=== PATIENT | male | born 1945 | race Caucasian/White ===

== ENCOUNTER → 2016-08-26 | Outpatient (CLI) | payer MEDICARE, OTHER ==
--- NOTE | 2016-08-26 19:05 | EKG REPORT ---
SEVERITY:- ABNORMAL ECG - ATRIAL FIBRILLATION, V-RATE 76-116 LEFT ANTERIOR FASCICULAR BLOCK BORDERLINE PROLONGED QT INTERVAL : Confirmed by: Chinyere Davis 26-Aug-2016 19:03:54
== END ==
LOC: OD 09:01
PROVIDERS: ATTEND Internal Medicine Medical Oncology
DX: C90.00 Multiple myeloma not having achieved remission (principal); I49.9 Cardiac arrhythmia, unspecified; A31.2 Disseminated mycobacterium avium-intracellulare complex (DMAC)
CPT/HCPCS: 71020; 93005; 93010

== ENCOUNTER 2016-10-04 14:03 | Inpatient (IN) | payer MEDICARE, OTHER ==
[2016-10-04] MEDS ORDERED: ASPIRIN 81 MG TABLET, CHEWABLE PO ONE (14:15)
[2016-10-04] MEDS ORDERED: DILTIAZEM HCL INJ 25 MG/5 ML VIAL IV ONE (14:49)
[2016-10-04] MEDS ORDERED: DILTIAZEM HCL/D5W 125 ML IV PRN (14:49)
[2016-10-04 15:03] LABS: HEMATOCRIT 47.9 % (37.9-51.0); HEMOGLOBIN 15.7 g/dL (13.5-17.0); HGB HCT DIFFERENCE -0.8; MEAN CORPUSCULAR HEMOGLOBIN 33.2 pg (27.0-33.4); MEAN CORPUSCULAR HGB CONC 32.7 g/dL (32.0-36.0); MEAN CORPUSCULAR VOLUME 101 fl (80-97); RED BLOOD COUNT 4.73 10^6/uL (4.35-5.55); RED CELL DISTRIBUTION WIDTH 18.4 % (11.5-14.0); WHITE BLOOD COUNT 6.5 10^3/uL (4.0-10.5)
--- NOTE | 2016-10-04 15:14 | RADIOLOGY REPORT (SQ) ---
EXAM DESCRIPTION: CHEST SINGLE VIEW COMPLETED DATE/TIME: 10/04/2016 2:36 pm REASON FOR STUDY: dizzy COMPARISON: 08/26/2016 EXAM PARAMETERS: NUMBER OF VIEWS: One view. TECHNIQUE: Single frontal radiographic view of the chest acquired. RADIATION DOSE: NA LIMITATIONS: None. FINDINGS: LUNGS AND PLEURA: No opacities, masses or pneumothorax. No pleural effusion. MEDIASTINUM AND HILAR STRUCTURES: No masses. Contour normal. HEART AND VASCULAR STRUCTURES: Heart normal in size. Normal vasculature. BONES: No acute findings. HARDWARE: Injection port on the left. OTHER: No other significant finding. IMPRESSION: NO ACUTE RADIOGRAPHIC FINDING IN THE CHEST. TECHNICAL DOCUMENTATION: JOB ID: [id number]
--- NOTE | 2016-10-04 15:20 | ER Document Report ---
ED General - General Chief Complaint: Dizziness Stated Complaint: DIZZINESS Time Seen by Provider: 10/04/16 14:15 Mode of Arrival: Ambulatory Information source: Patient Notes: 71-year-old male presents with complaints of shortness of breath palpitations dizziness. Patient found by EMS with heart rate in the 160s intermittently down to the 120s patient notes symptoms started just prior to arrival TRAVEL OUTSIDE OF THE [place] IN LAST 30 DAYS: No - HPI Onset: Just prior to arrival Onset/Duration: Sudden Quality of pain: No pain Severity: Moderate Pain Level: 0 Associated symptoms: Shortness of breath Exacerbated by: Denies Relieved by: Denies Similar symptoms previously: Yes Recently seen / treated by doctor: Yes - Related Data Allergies/Adverse Reactions: No Known Allergies Allergy (Verified 03/04/13 08:41) Past Medical History - Social History Smoking Status: Never Smoker Cigarette use (# per day): No Chew tobacco use (# tins/day): No Smoking Education Provided: No Family History: Reviewed & Not Pertinent - Past Medical History Cardiac Medical History: Reports: Hx Hypertension - meds x yrs Denies: Hx Coronary Artery Disease, Hx Heart Attack Pulmonary Medical History: Denies: Hx Asthma, Hx Bronchitis, Hx COPD, Hx Pneumonia, Hx Tuberculosis Neurological Medical History: Denies: Hx Cerebrovascular Accident, Hx Seizures Endocrine Medical History: Reports: Hx Diabetes Mellitus Type 2 - "boderline" GI Medical History: Denies: Hx Hepatitis, Hx Hiatal Hernia, Hx Ulcer Musculoskeltal Medical History: Reports Hx Arthritis - B/L hands Infectious Medical History: Denies: Hx Hepatitis Past Surgical History: Reports: Hx Orthopedic Surgery - left shouldar repair, left elbow repair. Denies: Hx Open Heart Surgery, Hx Pacemaker - Immunizations Hx Diphtheria, Pertussis, Tetanus Vaccination: - "unknown" Hx Pneumococcal Vaccination: 05/12/09 Review of Systems - Review of Systems Notes: PHYSICAL EXAMINATION: GENERAL: Well-appearing, well-nourished and in no acute distress. HEAD: Atraumatic, normocephalic. EYES: Pupils equal round and reactive to light, extraocular movements intact, sclera anicteric, conjunctiva are normal. ENT: Nares patent, oropharynx clear without exudates. Moist mucous membranes. NECK: Normal range of motion, supple without lymphadenopathy LUNGS: Breath sounds clear to auscultation bilaterally and equal. No wheezes rales or rhonchi. HEART: irregular rate and rhythm without murmurs ABDOMEN: Soft, nontender, nondistended abdomen. No guarding, no rebound. No masses appreciated. Musculoskeletal: Normal range of motion, no pitting or edema. No cyanosis. NEUROLOGICAL: Cranial nerves grossly intact. Normal speech, normal gait. Normal sensory, motor exams PSYCH: Normal mood, normal affect. SKIN: Warm, Dry, normal turgor, no rashes or lesions noted. Physical Exam - Vital signs Vitals: Pulse Resp BP Pulse Ox 140 H 33 H 163/116 H 98 10/04/16 14:20 10/04/16 14:20 10/04/16 14:20 10/04/16 14:20 Course - Re-evaluation Re-evalutation: 10/04/16 15:20 pt immediately started on cardizem bolus and drip 10/04/16 15:57 Heart rate has improved significantly, I will admit the patient to his primary care physician and is otherwise stable - Vital Signs Vital signs: Temp Pulse Resp BP Pulse Ox 140 H 33 H 163/116 H 97 10/04/16 14:20 10/04/16 14:20 10/04/16 14:20 10/04/16 14:43 - Laboratory Result Diagrams: 10/04/16 14:36 10/04/16 14:36 Laboratory results interpreted by me: 10/04/16 10/04/16 14:36 14:36 MCV 101 H RDW 18.4 H Seg Neuts % (Manual) 79 H Lymphocytes % (Manual) 6 L Basophils % (Manual) 3 H Glucose 172 H Total Protein 5.4 L Critical Care Note - Critical Care Note Total time excluding time spent on procedures (mins): 33 Comments: minutes of critical care time spent in direct contact evaluating and reevaluating the patient, treating symptoms, reviewing labs and studies and speaking with family and consultants excluding any procedures Discharge - Discharge Clinical Impression: Atrial fibrillation with rapid ventricular response, Shortness of breath Condition: Stable Disposition: ADMITTED INPATIENT Admitting Provider: [facility] Unit Admitted: [facility]
[2016-10-04 15:28] LABS: ALANINE AMINOTRANSFERASE 45 U/L (21-72); ALBUMIN 3.8 g/dL (3.5-5.0); ALKALINE PHOSPHATASE 80 U/L (38-126); ANION GAP 12 (5-19); ASPARTATE AMINO TRANSFERASE 24 U/L (17-59); BILIRUBIN,DIRECT 0.4 mg/dL (0.0-0.4); BILIRUBIN,TOTAL 0.8 mg/dL (0.2-1.3); BLOOD UREA NITROGEN 18 mg/dL (7-20); CALCIUM 9.6 mg/dL (8.4-10.2); CARBON DIOXIDE 26 mmol/L (22-30); CHLORIDE 106 mmol/L (98-107); CREATINE KINASE 55 U/L (55-170); CREATININE RESULT 0.72 mg/dL (0.52-1.25); GLUCOSE 172 mg/dL (75-110); POTASSIUM 4.6 mmol/L (3.6-5.0); SODIUM 144.2 mmol/L (137-145); TOTAL PROTEIN 5.4 g/dL (6.3-8.2)
[2016-10-04 15:32] LABS: BAND NEUTROPHILS % (MANUAL) 3 % (3-5); BASOPHILS % (MANUAL) 3 % (0-2); EOSINOPHILS % (MANUAL) 3 % (0-6); LYMPHOCYTES % (MANUAL) 6 % (13-45); NUCLEATED RED BLOOD CELLS 2 /100 WBC (0); TOTAL CELLS COUNTED 100
[2016-10-04 15:37] LABS: ACANTHOCYTES 1+; ANISOCYTOSIS 2+; OVALOCYTES 1+; POIKILOCYTOSIS 2+; POLYCHROMASIA 1+; SCHISTOCYTES SLIGHT; TEAR DROP CELLS 1+
[2016-10-04 15:38] LABS: HOWELL-JOLLY BODIES PRESENT; PLATELET CLUMPS PRESENT
[2016-10-04 15:42] LABS: CREATINE KINASE MB 3.56 ng/mL (<4.55)
[2016-10-04 15:43] LABS: TROPONIN I < 0.012 ng/mL
[2016-10-04 18:04] LABS: PROTHROMBIN TIME 14.9 SEC (11.4-15.4)
[2016-10-04] MEDS: APIXABAN 5 MG TABLET PO SCH (20:06)
[2016-10-04] MEDS ORDERED: LISINOPRIL 10 MG TABLET PO ONE (20:30)
--- NOTE | 2016-10-04 20:41 | EKG REPORT ---
SEVERITY:- ABNORMAL ECG - ATRIAL FIBRILLATION, V-RATE 78-169 PROBABLE LEFT VENTRICULAR HYPERTROPHY PROBABLE INFERIOR INFARCT, AGE INDETERMINATE BORDERLINE PROLONGED QT INTERVAL : Confirmed by: Geovanny Segovia MD 04-Oct-2016 20:40:44
[2016-10-04] MEDS: FAMOTIDINE 20 MG TABLET PO SCH (22:52)
[2016-10-04] MEDS ORDERED: TAMSULOSIN HCL 0.4 MG CAP.SR.24H PO ONE (23:00)
[2016-10-05 00:56] LABS: APPEARANCE,URINE SLIGHTLY-CLOUDY; BILIRUBIN,URINE NEGATIVE (NEGATIVE); GLUCOSE, URINE >=500 mg/dL (NEGATIVE); KETONES,URINE TRACE mg/dL (NEGATIVE); LEUKOCYTE ESTERASE,URINE NEGATIVE (NEGATIVE); NITRITE,URINE NEGATIVE (NEGATIVE); PROTEIN,URINE 100 mg/dL (NEGATIVE); URINE SPECIFIC GRAVITY 1.026; UROBILINOGEN,URINE NEGATIVE mg/dL (<2.0)
--- NOTE | 2016-10-05 07:02 | PDOC H&P ---
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 In recent months he has fallen at least weekly. Dr Arriaga said it might be revlimid related. Yesterday he fell against L ribs. Last time it was R ribs. He has had paroxysmal afib since 2013 [address] on lov[address] from Dr Arriaga for L dvt. Although he did not feel palpitatons yesterday, rate was 150 in ER. Although he has not had hesitancy before, he had 700ml in bladder before ballard last night. Past Medical History Cardiac Medical History: Reports: Atrial Fibrillation, DVT, Hyperlipidema, Hypertension - meds x yrs Denies: Coronary Artery Disease, Myocardial Infarction Pulmonary Medical History: Reports: Other - [facility] [place] 2013 3Rx Denies: Asthma, Bronchitis, Chronic Obstructive Pulmonary Disease (COPD), Pneumonia, Tuberculosis Neurological Medical History: Reports: Other - neuropathy diabetic & chemo Denies: Seizures Endocrine Medical History: Reports: Diabetes Mellitus Type 2 - "boderline" Renal/ Medical History: Reports: None Malignancy Medical History: Reports: Other - 2011 myeloma GI Medical History: Denies: Hepatitis, Hiatal Hernia Musculoskeltal Medical History: Reports: Arthritis - B/L hands Psychiatric Medical History: Denies: Depression Traumatic Medical History: Reports: None Hematology: Denies: Anemia - has polycythemia vera, Sickle Cell Disease Infectious Medical History: Reports: None Past Surgical History Past Surgical History: Reports: Orthopedic Surgery - left acromion orif, left elbow repair, Other - 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 Moran Lives with: Alone Smoking Status: Never Smoker Frequency of Alcohol Use: None Hx Recreational Drug Use: No Hx Prescription Drug Abuse: No - Advance Directive Resuscitation Status: Full Code Family History Family History: CAD, Malignancy Parental Family History Reviewed: Yes Children Family History Reviewed: Yes Sibling(s) Family History Reviewed.: Yes Medication/Allergy Home Medications: Duloxetine HCl 30 mg PO DAILY 10/04/16 Enoxaparin Sodium [Lovenox Inj 100 mg/1 ml Disp.syrin] 0.9 ml PO BID 10/04/16 Esomeprazole Mag Trihydrate [Nexium] 40 mg PO DAILY 10/04/16 Fenofibrate 160 mg PO DAILY 10/04/16 Fluticasone/Salmeterol [Advair 100-50 Diskus 14 Dose/Diskus] 1 puff IH BID 10/04 Gabapentin [Neurontin 300 mg Capsule] 300 mg PO Q8 10/04/16 Insulin Aspart [Novolog Flexpen] 10 units SQ MEALS 10/04/16 Insulin Glargine,Hum.rec.anlog [Lantus Solostar] 40 units SQ QHS 10/04/16 Metformin HCl [Glucophage XR 500 mg Tablet] 2,000 mg PO WSUPPER 10/04/16 Allergies/Adverse Reactions: No Known Allergies Allergy (Verified 03/04/13 08:41) Review of Systems Constitutional: ABSENT: fever(s), headache(s), weight loss Nose, Mouth, and Throat: ABSENT: sore throat Cardiovascular: PRESENT: chest pain - L pleuritic. ABSENT: dyspnea on exertion , orthropnea, palpitations Respiratory: ABSENT: cough Gastrointestinal: PRESENT: constipation. ABSENT: abdominal pain, diarrhea, hematochezia, melena, vomiting Genitourinary: ABSENT: dysuria, hematuria Integumentary: PRESENT: wounds - abrasion forehead Neurological: PRESENT: numbness - extremities Physical Exam Vital Signs: Temp Pulse Resp BP Pulse Ox 97.8 F 74 18 155/92 H 95 10/05/16 03:17 10/05/16 05:01 10/05/16 05:01 10/05/16 05:01 10/05/16 05:01 Intake & Output 10/03/16 10/04/16 10/05/16 07:59 07:59 07:59 Intake Total 500 Output Total 650 Balance -150 Weight 199 lb 1.239 oz General appearance: PRESENT: no acute distress Eye exam: PRESENT: EOMI, PERRLA Mouth exam: PRESENT: moist Neck exam: ABSENT: lymphadenopathy, tenderness, thyromegaly, tracheal deviation Respiratory exam: PRESENT: clear to auscultation esme Cardiovascular exam: ABSENT: diastolic murmur, irregular rhythm, systolic murmur GI/Abdominal exam: ABSENT: mass, organolmegaly, tenderness Extremities exam: ABSENT: pedal edema Neurological exam: PRESENT: oriented to situation, CN II-XII grossly intact. ABSENT: reflexes normal - no dtr, motor sensory deficit - touch intact but decreased. 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 Psychiatric exam: PRESENT: appropriate affect Skin exam: PRESENT: abrasion - forehead Results Laboratory Results: Abnormal - 24 hr 10/04/16 10/04/16 10/04/16 14:36 14:36 23:55 MCV 101 H RDW 18.4 H Seg Neuts % (Manual) 79 H Lymphocytes % (Manual) 6 L Basophils % (Manual) 3 H Glucose 172 H POC Glucose Total Protein 5.4 L Urine Protein 100 H Urine Glucose (UA) >=500 H Urine Ketones TRACE H Urine Ascorbic Acid 40 H 10/05/16 05:40 MCV RDW Seg Neuts % (Manual) Lymphocytes % (Manual) Basophils % (Manual) Glucose POC Glucose 159 H Total Protein Urine Protein Urine Glucose (UA) Urine Ketones Urine Ascorbic Acid Impressions: Chest X-Ray 10/04/16 14:16 IMPRESSION: NO ACUTE RADIOGRAPHIC FINDING IN THE CHEST. Assessment & Plan - Diagnosis (1) Atrial fibrillation with RVR Is this a current diagnosis for this admission?: YesPlan: diltiazem drip worked. Switching to po. Switched lovenox to eliquis. (2) BPH with urinary obstruction Is this a current diagnosis for this admission?: YesPlan: tamsulosin then trial of voiding (3) Ataxia Is this a current diagnosis for this admission?: YesPlan: has walker. Consult Dr Arriaga about need for revlimid. - Time Time Spent: 30 to 50 Minutes Medications reviewed and adjusted accordingly: Yes Anticipated discharge: Home Within: within 72 hours - Inpatient Certification Medical Necessity: Failure to Improve With Outpatient Therapy, Significant Comorbidiites Make Outpatient Treatment Too Risky, Need Close Monitoring Due to Risk of Patient Decompensation, Need For Continuous Telemetry Monitoring, Risk of Diagnosis Which Will Require Inpatient Eval/Care/Monitoring - need rate control
[2016-10-05] MEDS ORDERED: DEXTROSE 40% GEL 15 GM TUBE PO PRN ×4 (07:04)
[2016-10-05] MEDS ORDERED: GLUCAGON,HUMAN RECOMB 1 MG INJ IM PRN ×2 (07:04)
[2016-10-05] MEDS ORDERED: DEXTROSE 50%-WATER 25 GM/50 ML DISP.SYRIN IV PRN ×4 (07:04)
[2016-10-05] MEDS ORDERED: (PENDING PHARMACY ID) (Insulin Aspart [Novolog Flexpen] 10 UNITS) SQ SCH (08:00)
[2016-10-05] MEDS: INSULIN LISPRO 100 UNIT/ML 3 ML VIAL SUBCUT SCH ×3 (08:16→17:46)
[2016-10-05] MEDS: GABAPENTIN 300 MG CAPSULE PO SCH ×3 (08:16→21:34)
[2016-10-05] MEDS: TAMSULOSIN HCL 0.4 MG CAP.SR.24H PO SCH (09:23)
[2016-10-05] MEDS: DILTIAZEM HCL 240 MG CAPSULE.CR PO SCH (09:23)
[2016-10-05] MEDS: DULOXETINE HCL 30 MG CAPSULE.DR PO SCH (09:24)
[2016-10-05] MEDS: FAMOTIDINE 20 MG TABLET PO SCH ×2 (09:24→21:34)
[2016-10-05] MEDS: APIXABAN 5 MG TABLET PO SCH ×2 (09:24→17:42)
[2016-10-05] MEDS: LISINOPRIL 10 MG TABLET PO SCH (09:24)
[2016-10-05] MEDS ORDERED: (PENDING PHARMACY ID) (Fenofibrate [Fenofibrate] 160 MG) PO SCH (10:00)
[2016-10-05] MEDS ORDERED: (PENDING PHARMACY ID) (Esomeprazole Mag Trihydrate [Nexium] 40 MG) PO SCH (10:00)
[2016-10-05] MEDS: FLUTICASONE/SALMETEROL DISKUS 100-50 MCG/DOSE IH SCH ×2 (10:38→17:41)
[2016-10-05] MEDS: LANSOPRAZOLE 30 MG TAB.RAP.DR PO SCH (10:38)
[2016-10-05] MEDS: FENOFIBRATE NANOCRYSTALLIZED 145 MG TABLET PO SCH (10:38)
[2016-10-05] MEDS ORDERED: METFORMIN HCL 2000 MG PO SCH (17:00)
--- NOTE | 2016-10-05 17:06 | EKG REPORT ---
SEVERITY:- ABNORMAL ECG - ATRIAL FIBRILLATION, V-RATE 61-101 LEFT AXIS DEVIATION PROBABLE LEFT VENTRICULAR HYPERTROPHY BORDERLINE PROLONGED QT INTERVAL : Confirmed by: Geovanny Segovia MD 05-Oct-2016 17:06:04
[2016-10-05] MEDS: METFORMIN HCL 500 MG TABLET PO SCH (17:41)
[2016-10-05] MEDS ORDERED: ACETAMINOPHEN 325 MG TABLET PO PRN (21:32)
[2016-10-05] MEDS ORDERED: INSULIN GLARGINE,HUM.REC.ANLOG 300 UNIT/3 ML INSULN.PEN SUBCUT SCH (22:00)
[2016-10-05] MEDS: INSULIN GLARGINE,HUM.REC.ANLOG 300 UNIT/3 ML INSULN.PEN SUBCUT SCH (23:20)
--- NOTE | 2016-10-05 23:25 | RADIOLOGY REPORT (SQ) ---
EXAM DESCRIPTION: CHEST SINGLE VIEW COMPLETED DATE/TIME: 10/05/2016 11:12 pm REASON FOR STUDY: sob COMPARISON: 10/04/2016 EXAM PARAMETERS: NUMBER OF VIEWS: One view. TECHNIQUE: Single frontal radiographic view of the chest acquired. RADIATION DOSE: NA LIMITATIONS: None. FINDINGS: LUNGS AND PLEURA: No opacities, masses or pneumothorax. No pleural effusion. MEDIASTINUM AND HILAR STRUCTURES: No masses. Contour normal. HEART AND VASCULAR STRUCTURES: The configuration of the heart and mediastinal structures is unchanged . BONES: No acute findings. HARDWARE: Central line is seen with its tip the level of the superior vena cava. OTHER: No other significant finding. IMPRESSION: No significant interval change. No acute findings. Other findings as noted above TECHNICAL DOCUMENTATION: JOB ID: [id number]
[2016-10-06] MEDS: GABAPENTIN 300 MG CAPSULE PO SCH ×3 (06:15→21:24)
--- NOTE | 2016-10-06 07:23 | PDOC PROGRESS REPORT ---
Subjective Progress Note for:: 10/06/16 Subjective:: has not noted nocturnal confusion at home but was confused last night. Required ballard for retention. Less L pleuritic pain. No chest pressure. Needed torey & diltiazem for bp. Physical Exam Vital Signs: Temp Pulse Resp BP Pulse Ox 97.8 F 89 20 144/90 H 97 10/06/16 03:50 10/06/16 06:48 10/06/16 03:50 10/06/16 03:50 10/06/16 03:50 Intake & Output 10/04/16 10/05/16 10/06/16 07:59 07:59 07:59 Intake Total 700 1424 Output Total 850 1350 Balance -150 74 Weight 199 lb 1.239 oz 195 lb 8.8 oz General appearance: PRESENT: no acute distress Respiratory exam: PRESENT: clear to auscultation esme Cardiovascular exam: PRESENT: irregular rhythm. ABSENT: diastolic murmur, systolic murmur GI/Abdominal exam: ABSENT: mass, organolmegaly, tenderness Extremities exam: ABSENT: pedal edema Neurological exam: PRESENT: oriented to situation Psychiatric exam: PRESENT: appropriate affect Focused psych exam: PRESENT: other - oriented to time except day of week. Knows last 2 presidents. 3 serial 7s. Interprets a proverb. Recall 1 of 3 objects in 3 min. Results Laboratory Results: 10/04/16 10/05/16 10/05/16 17:40 06:03 15:24 Troponin I 0.047 0.130 0.059 Impressions: Chest X-Ray 10/05/16 00:00 IMPRESSION: No significant interval change. No acute findings. Other findings as noted above Assessment & Plan - Diagnosis (1) Atrial fibrillation with RVR Is this a current diagnosis for this admission?: YesPlan: still afib but rate controlled. Continue eliquis & diltiazem. Troponin 0.13 from tachycardia. (2) BPH with urinary obstruction Is this a current diagnosis for this admission?: YesPlan: on tamsulosin. Pull ballard. (3) Ataxia Is this a current diagnosis for this admission?: YesPlan: Has too much junk to take care of for rest home. (5) Alzheimer's dementia, late onset Qualifiers: Dementia behavioral disturbance: without behavioral disturbance Qualified Code(s): G30.1 - Alzheimer's disease with late onset; F02.80 - Dementia in other diseases classified elsewhere without behavioral disturbance Is this a current diagnosis for this admission?: YesPlan: looses things. Recall 1of3 objects in 3min. Check tsh,b12.
[2016-10-06] MEDS: METFORMIN HCL 500 MG TABLET PO SCH ×2 (08:00→18:22)
[2016-10-06] MEDS: INSULIN LISPRO 100 UNIT/ML 3 ML VIAL SUBCUT SCH ×3 (08:01→18:25)
[2016-10-06] MEDS: FAMOTIDINE 20 MG TABLET PO SCH ×2 (10:39→21:24)
[2016-10-06] MEDS: DILTIAZEM HCL 240 MG CAPSULE.CR PO SCH (10:39)
[2016-10-06] MEDS: FLUTICASONE/SALMETEROL DISKUS 100-50 MCG/DOSE IH SCH ×2 (10:40→18:23)
[2016-10-06] MEDS: TAMSULOSIN HCL 0.4 MG CAP.SR.24H PO SCH (10:40)
[2016-10-06] MEDS: LISINOPRIL 10 MG TABLET PO SCH (10:40)
[2016-10-06] MEDS: FENOFIBRATE NANOCRYSTALLIZED 145 MG TABLET PO SCH (10:41)
[2016-10-06] MEDS: DULOXETINE HCL 30 MG CAPSULE.DR PO SCH (10:41)
[2016-10-06] MEDS: LANSOPRAZOLE 30 MG TAB.RAP.DR PO SCH (10:41)
[2016-10-06] MEDS: LUBIPROSTONE 24 MCG CAPSULE PO SCH ×2 (10:41→18:23)
[2016-10-06] MEDS: APIXABAN 5 MG TABLET PO SCH ×2 (10:42→18:23)
[2016-10-06] MEDS ORDERED: ONDANSETRON 4 MG TAB.RAPDIS PO PRN (13:56)
[2016-10-06] MEDS ORDERED: DILTIAZEM HCL 240 MG CAPSULE.CR PO ONE (15:00)
[2016-10-06] MEDS: INSULIN GLARGINE,HUM.REC.ANLOG 300 UNIT/3 ML INSULN.PEN SUBCUT SCH (23:54)
[2016-10-07] MEDS: GABAPENTIN 300 MG CAPSULE PO SCH ×3 (06:00→21:23)
--- NOTE | 2016-10-07 08:50 | PDOC PROGRESS REPORT ---
Subjective Progress Note for:: 10/07/16 Subjective:: threw up diltiazem capsule yesterday. Rate went up. Repeated diltiazem. Constipation. Physical Exam Vital Signs: Temp Pulse Resp BP Pulse Ox 97.7 F 77 24 H 145/70 H 95 10/07/16 04:34 10/07/16 07:00 10/07/16 04:34 10/07/16 04:34 10/07/16 04:34 Intake & Output 10/06/16 10/07/16 10/08/16 07:59 07:59 07:59 Intake Total 1424 913 Output Total 1700 850 Balance -276 63 Weight 195 lb 8.8 oz 193 lb 12.581 oz General appearance: PRESENT: no acute distress Respiratory exam: PRESENT: clear to auscultation esme Cardiovascular exam: PRESENT: irregular rhythm. ABSENT: diastolic murmur, systolic murmur GI/Abdominal exam: ABSENT: mass, organolmegaly, tenderness Extremities exam: ABSENT: pedal edema Neurological exam: PRESENT: oriented to situation Psychiatric exam: PRESENT: appropriate affect Results Laboratory Results: 10/06/16 10/06/16 08:20 08:20 Vitamin B12 > 1000.0 H TSH 3.43 10/04/16 10/05/16 10/05/16 17:40 06:03 15:24 Troponin I 0.047 0.130 0.059 10/06/16 08:20 Troponin I 0.052 Impressions: Chest X-Ray 10/05/16 00:00 IMPRESSION: No significant interval change. No acute findings. Other findings as noted above Assessment & Plan - Diagnosis (1) Atrial fibrillation with RVR Is this a current diagnosis for this admission?: YesPlan: really needs 240mg diltiazem daily. (2) BPH with urinary obstruction Is this a current diagnosis for this admission?: YesPlan: voiding with out ballard on tamsulosin (3) Ataxia Is this a current diagnosis for this admission?: Yes (4) Alzheimer's dementia with behavioral disturbance Qualifiers: Alzheimer's disease onset: late-onset Qualified Code(s): G30.1 - Alzheimer's disease with late onset; F02.81 - Dementia in other diseases classified elsewhere with behavioral disturbance Is this a current diagnosis for this admission?: YesPlan: tsh,b12 ok. Start donepezil (5) Alzheimer's dementia, late onset Qualifiers: Dementia behavioral disturbance: without behavioral disturbance Qualified Code(s): G30.1 - Alzheimer's disease with late onset; F02.81 - Dementia in other diseases classified elsewhere with behavioral disturbance Is this a current diagnosis for this admission?: Yes (6) Constipation by delayed colonic transit Is this a current diagnosis for this admission?: YesPlan: magdy
[2016-10-07] MEDS: FLUTICASONE/SALMETEROL DISKUS 100-50 MCG/DOSE IH SCH ×2 (09:22→21:22)
[2016-10-07] MEDS: METFORMIN HCL 500 MG TABLET PO SCH ×2 (09:22→16:54)
[2016-10-07] MEDS: LANSOPRAZOLE 30 MG TAB.RAP.DR PO SCH (09:23)
[2016-10-07] MEDS: FAMOTIDINE 20 MG TABLET PO SCH ×2 (09:23→21:23)
[2016-10-07] MEDS: LISINOPRIL 10 MG TABLET PO SCH (09:23)
[2016-10-07] MEDS: DONEPEZIL HCL 5 MG TABLET PO SCH (09:23)
[2016-10-07] MEDS: TAMSULOSIN HCL 0.4 MG CAP.SR.24H PO SCH (09:24)
[2016-10-07] MEDS: DILTIAZEM HCL 240 MG CAPSULE.CR PO SCH (09:24)
[2016-10-07] MEDS: DULOXETINE HCL 30 MG CAPSULE.DR PO SCH (09:24)
[2016-10-07] MEDS: FENOFIBRATE NANOCRYSTALLIZED 145 MG TABLET PO SCH (09:24)
[2016-10-07] MEDS: LUBIPROSTONE 24 MCG CAPSULE PO SCH ×2 (09:24→18:23)
[2016-10-07] MEDS: APIXABAN 5 MG TABLET PO SCH ×2 (09:25→18:23)
[2016-10-07] MEDS: INSULIN LISPRO 100 UNIT/ML 3 ML VIAL SUBCUT SCH ×3 (09:30→16:54)
[2016-10-07] MEDS: INSULIN GLARGINE,HUM.REC.ANLOG 300 UNIT/3 ML INSULN.PEN SUBCUT SCH (21:21)
[2016-10-07] MEDS: ACETAMINOPHEN 325 MG TABLET PO PRN (21:23)
[2016-10-08] MEDS: GABAPENTIN 300 MG CAPSULE PO SCH (05:13)
--- NOTE | 2016-10-08 06:55 | PDOC PROGRESS REPORT ---
Subjective Progress Note for:: 10/08/16 Subjective:: fell coming out of bathroom. Hit head and L shoulder. Now willing to consider rehab. Feet dont burn Physical Exam Vital Signs: Temp Pulse Resp BP Pulse Ox 97.4 F 86 28 H 162/84 H 99 10/08/16 03:59 10/08/16 03:59 10/08/16 03:59 10/08/16 03:59 10/08/16 03:59 Intake & Output 10/06/16 10/07/16 10/08/16 07:59 07:59 07:59 Intake Total 4498 669 7753 Output Total 1700 846 775 Balance -276 63 311 Weight 195 lb 8.8 oz 193 lb 12.581 oz General appearance: PRESENT: no acute distress Respiratory exam: PRESENT: clear to auscultation esme Cardiovascular exam: PRESENT: irregular rhythm. ABSENT: diastolic murmur, systolic murmur GI/Abdominal exam: ABSENT: mass, organolmegaly, tenderness Extremities exam: ABSENT: pedal edema Musculoskeletal exam: PRESENT: tenderness - L shoulder [id number] Neurological exam: PRESENT: oriented to time, abnormal gait, ataxia, CN II-XII grossly intact - OK:cn2-12, fingerToNose. Rhomberg+. Falls back. Grip5. Touch intact. PERRLA. 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 No acute findings. Other findings as noted above Assessment & Plan - Diagnosis (1) Ataxia Is this a current diagnosis for this admission?: YesPlan: ct head to rule out subdural. Rehab. Stop duloxetine & gabapentin. PT (2) Atrial fibrillation with RVR Is this a current diagnosis for this admission?: YesPlan: No longer a candidate for anticoagulation. Subdural risk outweighs embolic risk. Stop eliquis. (3) Alzheimer's dementia with behavioral disturbance Qualifiers: Alzheimer's disease onset: late-onset Qualified Code(s): G30.1 - Alzheimer's disease with late onset; F02.81 - Dementia in other diseases classified elsewhere with behavioral disturbance Is this a current diagnosis for this admission?: Yes (4) Constipation by delayed colonic transit Is this a current diagnosis for this admission?: YesPlan: 2 stools after enema & amitiza. (5) BPH with urinary obstruction Is this a current diagnosis for this admission?: Yes
--- NOTE | 2016-10-08 08:27 | RADIOLOGY REPORT (SQ) ---
EXAM DESCRIPTION: CT HEAD WITHOUT COMPLETED DATE/TIME: 10/08/2016 8:11 am REASON FOR STUDY: fell hit head again COMPARISON: CT brain 06/04/2012 TECHNIQUE: Axial images acquired through the brain without intravenous contrast. Images reviewed wi th bone, brain and subdural windows. Images stored on PACS. All CT scanners at this facility use dose modulation, iterative reconstruction, and/or weight based d osing when appropriate to reduce radiation dose to as low as reasonably achievable (ALARA). [facility]: Dose Right [facility]: CareDose [facility]: Dose Right [facility]: Teradose 4D [facility]: Hiddenbed RADIATION DOSE: 48.95 mGy. LIMITATIONS: Motion artifact FINDINGS: Study limited by patient motion artifact. On images without motion, there is no gross CT evidence of large territory acute ischemic change, acute intracranial hemorrhage, mass effect, or mid line shift. White matter disease is present, chronic. IMPRESSION: Limited negative study. Motion artifact. TECHNICAL DOCUMENTATION: JOB ID: [id number] Quality ID # [id number]: Final reports with documentation of one or more dose reduction techniques (e.g., Au tomated exposure control, adjustment of the mA and/or kV according to patient size, use of iterative reconstruction technique) 2010 [employer]- All Rights Reserved
--- NOTE | 2016-10-08 09:18 | RADIOLOGY REPORT (SQ) ---
EXAM DESCRIPTION: SHOULDER LEFT 2 OR MORE VIEWS COMPLETED DATE/TIME: 10/08/2016 8:21 am REASON FOR STUDY: fell tender abduction COMPARISON: None. NUMBER OF VIEWS: Three views. TECHNIQUE: Internal rotation, external rotation, and Y view images acquired of the left shoulder. LIMITATIONS: None. FINDINGS: MINERALIZATION: Normal. BONES: No acute fracture or dislocation. No worrisome bone lesions. JOINTS: No dislocation. VISUALIZED LUNGS AND RIBS: No pneumothorax. Minimal irregularity of the lateral left 5th rib. SOFT TISSUES: No radiopaque foreign body. OTHER: No other significant finding. IMPRESSION: MINIMALLY DISPLACED FRACTURE OF THE LATERAL LEFT 5TH RIB, AGE INDETERMINATE BUT PROBABLY RECENT. NO ACUTE TRAUMATIC FINDINGS IN THE SHOULDER. TECHNICAL DOCUMENTATION: JOB ID: [id number] [employer]- All Rights Reserved
[2016-10-08] MEDS: LISINOPRIL 10 MG TABLET PO SCH (09:19)
[2016-10-08] MEDS: DILTIAZEM HCL 240 MG CAPSULE.CR PO SCH (09:19)
[2016-10-08] MEDS: DONEPEZIL HCL 5 MG TABLET PO SCH (09:19)
[2016-10-08] MEDS: ACETAMINOPHEN 325 MG TABLET PO PRN ×2 (09:20→14:52)
[2016-10-08] MEDS: METFORMIN HCL 500 MG TABLET PO SCH ×2 (09:20→18:52)
[2016-10-08] MEDS: LANSOPRAZOLE 30 MG TAB.RAP.DR PO SCH (09:20)
[2016-10-08] MEDS: FENOFIBRATE NANOCRYSTALLIZED 145 MG TABLET PO SCH (09:20)
[2016-10-08] MEDS: TAMSULOSIN HCL 0.4 MG CAP.SR.24H PO SCH (09:20)
[2016-10-08] MEDS: FLUTICASONE/SALMETEROL DISKUS 100-50 MCG/DOSE IH SCH ×2 (09:22→21:07)
[2016-10-08] MEDS: LUBIPROSTONE 24 MCG CAPSULE PO SCH ×2 (09:22→18:52)
[2016-10-08] MEDS: INSULIN LISPRO 100 UNIT/ML 3 ML VIAL SUBCUT SCH ×3 (09:23→18:52)
[2016-10-08] MEDS: INSULIN GLARGINE,HUM.REC.ANLOG 300 UNIT/3 ML INSULN.PEN SUBCUT SCH (21:08)
--- NOTE | 2016-10-09 06:48 | PDOC PROGRESS REPORT ---
Subjective Progress Note for:: 10/09/16 Subjective:: using walker Physical Exam Vital Signs: Temp Pulse Resp BP Pulse Ox 98.0 F 109 H 28 H 142/85 H 91 L 10/08/16 23:54 10/09/16 02:00 10/08/16 23:54 10/08/16 23:54 10/08/16 23:54 Intake & Output 10/07/16 10/08/16 10/09/16 07:59 07:59 07:59 Intake Total 913 1611 675 Output Total 850 775 Balance 63 836 675 Weight 193 lb 12.581 oz 194 lb 0.108 oz General appearance: PRESENT: no acute distress Respiratory exam: PRESENT: clear to auscultation esme Cardiovascular exam: ABSENT: diastolic murmur, irregular rhythm, systolic murmur GI/Abdominal exam: ABSENT: mass, organolmegaly, tenderness Extremities exam: ABSENT: pedal edema Neurological exam: PRESENT: oriented to situation Psychiatric exam: PRESENT: appropriate affect Results Laboratory Results: 10/04/16 10/05/16 10/05/16 17:40 06:03 15:24 Troponin I 0.047 0.130 0.059 10/06/16 08:20 Troponin I 0.052 Impressions: Chest X-Ray 10/05/16 00:00 IMPRESSION: No significant interval change. No acute findings. Other findings as noted above Head CT 10/08/16 00:00 IMPRESSION: Limited negative study. Motion artifact. Shoulder X-Ray 10/08/16 00:00 IMPRESSION: MINIMALLY DISPLACED FRACTURE OF THE LATERAL LEFT 5TH RIB, AGE INDETERMINATE BUT PROBABLY RECENT. NO ACUTE TRAUMATIC FINDINGS IN THE SHOULDER. Assessment & Plan - Diagnosis (1) Ataxia Is this a current diagnosis for this admission?: YesPlan: Normal heel to acosta. Rehab PT. (2) Atrial fibrillation with RVR Is this a current diagnosis for this admission?: YesPlan: p<110 (3) Alzheimer's dementia with behavioral disturbance Qualifiers: Alzheimer's disease onset: late-onset Qualified Code(s): G30.1 - Alzheimer's disease with late onset; F02.81 - Dementia in other diseases classified elsewhere with behavioral disturbance Is this a current diagnosis for this admission?: YesPlan: continue donepezil 5mg (4) Constipation by delayed colonic transit Is this a current diagnosis for this admission?: Yes (5) BPH with urinary obstruction Is this a current diagnosis for this admission?: Yes - Plan Summary Plan Summary: SNF at [place] pending.
[2016-10-09] MEDS: ACETAMINOPHEN 325 MG TABLET PO PRN ×3 (07:19→22:08)
[2016-10-09] MEDS: FENOFIBRATE NANOCRYSTALLIZED 145 MG TABLET PO SCH (09:03)
[2016-10-09] MEDS: TAMSULOSIN HCL 0.4 MG CAP.SR.24H PO SCH (09:04)
[2016-10-09] MEDS: LANSOPRAZOLE 30 MG TAB.RAP.DR PO SCH (09:04)
[2016-10-09] MEDS: LISINOPRIL 10 MG TABLET PO SCH (09:04)
[2016-10-09] MEDS: DILTIAZEM HCL 240 MG CAPSULE.CR PO SCH (09:04)
[2016-10-09] MEDS: METFORMIN HCL 500 MG TABLET PO SCH ×2 (09:04→17:48)
[2016-10-09] MEDS: DONEPEZIL HCL 5 MG TABLET PO SCH (09:04)
[2016-10-09] MEDS: LUBIPROSTONE 24 MCG CAPSULE PO SCH ×2 (09:10→17:49)
[2016-10-09] MEDS: FLUTICASONE/SALMETEROL DISKUS 100-50 MCG/DOSE IH SCH ×2 (09:11→22:45)
[2016-10-09] MEDS: INSULIN LISPRO 100 UNIT/ML 3 ML VIAL SUBCUT SCH ×3 (09:12→17:49)
[2016-10-09] MEDS: INSULIN GLARGINE,HUM.REC.ANLOG 300 UNIT/3 ML INSULN.PEN SUBCUT SCH (22:45)
[2016-10-10] MEDS ORDERED: INSULIN GLARGINE,HUM.REC.ANLOG 300 UNIT/3 ML INSULN.PEN SUBCUT SCH (05:06)
[2016-10-10] MEDS: ACETAMINOPHEN 325 MG TABLET PO PRN ×2 (06:47→15:02)
--- NOTE | 2016-10-10 07:49 | PDOC DISCHARGE SUMMARY ---
General - Admit/Disc Date/PCP Admission Date/Primary Care Provider: 10/04/16 16:48 JUAN R KHAN MD Discharge Date: 10/10/16 - Discharge Diagnosis (1) Atrial fibrillation with RVR Is this a current diagnosis for this admission?: Yes (2) Ataxia Is this a current diagnosis for this admission?: Yes (3) Alzheimer's dementia with behavioral disturbance Is this a current diagnosis for this admission?: Yes (4) Constipation by delayed colonic transit Is this a current diagnosis for this admission?: Yes (5) BPH with urinary obstruction Is this a current diagnosis for this admission?: Yes - Additional Information Resuscitation Status: Full Code Discharge Diet: Diabetic Discharge Activity: Supervised Activity Home Medications: Esomeprazole Mag Trihydrate [Nexium] 40 mg PO DAILY 10/04/16 Fenofibrate 160 mg PO DAILY 10/04/16 Fluticasone/Salmeterol [Advair 100-50 Diskus 14 Dose/Diskus] 1 puff IH BID 10/04 Insulin Aspart [Novolog Flexpen] 10 units SQ MEALS 10/04/16 Metformin HCl [Glucophage XR 500 mg Tablet] 2,000 mg PO WSUPPER 10/04/16 Alfuzosin HCl [Alfuzosin HCl ER] 10 mg PO DAILY #90 tab.er.24h 10/08/16 Diltiazem HCl [Cardizem Cd 240 mg Capsule.cr] 240 mg PO DAILY #90 capsule.cr Donepezil HCl [Aricept 5 mg Tablet] 5 mg PO DAILY #30 tablet 10/08/16 Lactulose 20 gm PO DAILY #1000 ml 10/08/16 Insulin Glargine,Hum.rec.anlog [Lantus Solostar] 30 units SQ QHS #0 10/10/16 Lisinopril [Prinivil 10 mg Tablet] 40 mg PO DAILY #0 tablet 10/10/16 History of Present Illness Patient complains of: palpitation History of Present Illness: LESTER DELONG is a 71 year old male with diabetic & chemo neuropathy. In recent months he has fallen at least weekly. Dr Arriaga said it might be revlimid related. Yesterday he fell against L ribs. Last time it was R ribs. He has had paroxysmal afib since 2013 while on lovenox from Dr Arriaga for L dvt. Although he did not feel palpitatons yesterday, rate was 150 in ER. Although he has not had hesitancy before, he had 700ml in bladder before ballard last night. Hospital Course Hospital Course: Diltiazem controlled the rate fairly well until a dose came back up. It was repeated. Troponin peaked at 0.13 possibly from rate. I switched him from chronic lovenox to eliquis but stopped it after he fell and hit his head. CT showed small vessel disease. Rhomberg was positive with a tendency to fall backwards. Heel to acosta was normal. He has diabetic & chemo neuropathy. He walkered 120' with PT who suggested SNF. After tamsulosin, ballard was removed. He was confused at night. Recall was 1of3. Tsh & b12 were normal. Donepezil was started. Physical Exam Vital Signs: Temp Pulse Resp BP Pulse Ox 98.6 F 99 18 153/96 H 97 10/10/16 04:08 10/10/16 04:08 10/10/16 04:08 10/10/16 04:08 10/10/16 04:08 Intake & Output 10/08/16 10/09/16 10/10/16 07:59 07:59 07:59 Intake Total 1611 1275 760 Output Total 775 Balance 836 1275 760 Weight 194 lb 0.108 oz 190 lb 0.615 oz General appearance: PRESENT: no acute distress Respiratory exam: PRESENT: clear to auscultation esme Cardiovascular exam: ABSENT: diastolic murmur, irregular rhythm, systolic murmur GI/Abdominal exam: ABSENT: mass, organolmegaly, tenderness Extremities exam: ABSENT: pedal edema Neurological exam: PRESENT: oriented to situation Psychiatric exam: PRESENT: appropriate affect Results Laboratory Results: Labs- Last Values WBC 6.5 10^3/uL (4.0-10.5) 10/04/16 14:36 RBC 4.73 10^6/uL (4.35-5.55) 10/04/16 14:36 Hgb 15.7 g/dL (13.5-17.0) 10/04/16 14:36 Hct 47.9 % (37.9-51.0) 10/04/16 14:36 MCV 101 fl (80-97) H 10/04/16 14:36 MCH 33.2 pg (27.0-33.4) 10/04/16 14:36 MCHC 32.7 g/dL (32.0-36.0) 10/04/16 14:36 RDW 18.4 % (11.5-14.0) H 10/04/16 14:36 Plt Count 243 10^3/uL (150-450) 10/04/16 14:36 Total Counted 100 10/04/16 14:36 Seg Neutrophils % Not Reportable 10/04/16 14:36 Seg Neuts % (Manual) 79 % (42-78) H 10/04/16 14:36 Band Neutrophils % 3 % (3-5) 10/04/16 14:36 Lymphocytes % Not Reportable 10/04/16 14:36 Lymphocytes % (Manual) 6 % (13-45) L 10/04/16 14:36 Atypical Lymphs % 3 % (0) 10/04/16 14:36 Monocytes % Not Reportable 10/04/16 14:36 Monocytes % (Manual) 3 % (3-13) 10/04/16 14:36 Eosinophils % Not Reportable 10/04/16 14:36 Eosinophils % (Manual) 3 % (0-6) 10/04/16 14:36 Basophils % Not Reportable 10/04/16 14:36 Basophils % (Manual) 3 % (0-2) H 10/04/16 14:36 Absolute Neutrophils Not Reportable 10/04/16 14:36 Abs Neuts (Manual) 5.3 10^3/uL (1.7-8.2) 10/04/16 14:36 Absolute Lymphocytes Not Reportable 10/04/16 14:36 Abs Lymphs (Manual) 0.6 10^3/uL (0.5-4.7) 10/04/16 14:36 Absolute Monocytes Not Reportable 10/04/16 14:36 Abs Monocytes (Manual) 0.2 10^3/uL (0.1-1.4) 10/04/16 14:36 Absolute Eosinophils Not Reportable 10/04/16 14:36 Absolute Eos (Manual) 0.2 10^3/uL (0.0-0.6) 10/04/16 14:36 Absolute Basophils Not Reportable 10/04/16 14:36 Abs Basophils (Manual) 0.2 10^3/uL (0.0-0.2) 10/04/16 14:36 Nucleated RBCs 2 /100 WBC (0) 10/04/16 14:36 Clumped Platelets PRESENT 10/04/16 14:36 Giant Platelets PRESENT 10/04/16 14:36 Platelet Comment ADEQUATE 10/04/16 14:36 Polychromasia 1+ 10/04/16 14:36 Poikilocytosis 2+ 10/04/16 14:36 Basophilic Stippling PRESENT 10/04/16 14:36 Anisocytosis 2+ 10/04/16 14:36 Macrocytosis 2+ 10/04/16 14:36 Pappenheimer Bodies PRESENT 10/04/16 14:36 Tear Drop Cells 1+ 10/04/16 14:36 Ovalocytes 1+ 10/04/16 14:36 [place] Bodies PRESENT 10/04/16 14:36 Acanthocytes (Spur) 1+ 10/04/16 14:36 Schistocytes SLIGHT 10/04/16 14:36 PT 14.9 SEC (11.4-15.4) 10/04/16 17:40 INR 1.09 10/04/16 17:40 Sodium 144.2 mmol/L (137-145) 10/04/16 14:36 Potassium 4.6 mmol/L (3.6-5.0) 10/04/16 14:36 Chloride 106 mmol/L (98-107) 10/04/16 14:36 Carbon Dioxide 26 mmol/L (22-30) 10/04/16 14:36 Anion Gap 12 (5-19) 10/04/16 14:36 BUN 18 mg/dL (7-20) 10/04/16 14:36 Creatinine 0.72 mg/dL (0.52-1.25) 10/04/16 14:36 Est GFR ( Amer) > 60 (>60) 10/04/16 14:36 Est GFR (Non-Af Amer) > 60 (>60) 10/04/16 14:36 Glucose 172 mg/dL (75-110) H 10/04/16 14:36 POC Glucose 85 mg/dL (70-110) 10/09/16 22:04 Calcium 9.6 mg/dL (8.4-10.2) 10/04/16 14:36 Total Bilirubin 0.8 mg/dL (0.2-1.3) 10/04/16 14:36 Direct Bilirubin 0.4 mg/dL (0.0-0.4) 10/04/16 14:36 Indirect Bilirubin Not Reportable 10/04/16 14:36 Neonat Total Bilirubin Not Reportable 10/04/16 14:36 AST 24 U/L (17-59) 10/04/16 14:36 ALT 45 U/L (21-72) 10/04/16 14:36 Alkaline Phosphatase 80 U/L (38-126) 10/04/16 14:36 Creatine Kinase 55 U/L (55-170) 10/04/16 14:36 CK-MB (CK-2) 3.56 ng/mL (<4.55) 10/04/16 14:36 Troponin I 0.052 ng/mL 10/06/16 08:20 Total Protein 5.4 g/dL (6.3-8.2) L 10/04/16 14:36 Albumin 3.8 g/dL (3.5-5.0) 10/04/16 14:36 Vitamin B12 > 1000.0 pg/mL (239-931) H 10/06/16 08:20 TSH 3.43 uIU/mL (0.47-4.68) 10/06/16 08:20 Urine Color ISABEL 10/04/16 23:55 Urine Appearance SLIGHTLY-CLOUDY 10/04/16 23:55 Urine pH 5.0 (5.0-9.0) 10/04/16 23:55 Ur Specific [place] 1.026 10/04/16 23:55 Urine Protein 100 mg/dL (NEGATIVE) H 10/04/16 23:55 Urine Glucose (UA) >=500 mg/dL (NEGATIVE) H 10/04/16 23:55 Urine Ketones TRACE mg/dL (NEGATIVE) H 10/04/16 23:55 Urine Blood NEGATIVE (NEGATIVE) 10/04/16 23:55 Urine Nitrite NEGATIVE (NEGATIVE) 10/04/16 23:55 Urine Bilirubin NEGATIVE (NEGATIVE) 10/04/16 23:55 Urine Urobilinogen NEGATIVE mg/dL (<2.0) 10/04/16 23:55 Ur Leukocyte Esterase NEGATIVE (NEGATIVE) 10/04/16 23:55 Urine WBC (Auto) 1 /HPF 10/04/16 23:55 Urine RBC (Auto) 1 /HPF 10/04/16 23:55 Urine Mucus (Auto) RARE /LPF 10/04/16 23:55 Urine Ascorbic Acid 40 (NEGATIVE) H 10/04/16 23:55 EKG Comments: fast afib Impressions: Chest X-Ray 10/05/16 00:00 IMPRESSION: No significant interval change. No acute findings. Other findings as noted above Head CT 10/08/16 00:00 IMPRESSION: Limited negative study. Motion artifact. Shoulder X-Ray 10/08/16 00:00 IMPRESSION: MINIMALLY DISPLACED FRACTURE OF THE LATERAL LEFT 5TH RIB, AGE INDETERMINATE BUT PROBABLY RECENT. NO ACUTE TRAUMATIC FINDINGS IN THE SHOULDER. Qualifiers PATEINT BEING DISCHARGED WITH ANY OF THE FOLLOWING DIAGNOSIS?: No Plan Discharge Plan: to [facility]. I will follow.
[2016-10-10] MEDS: DONEPEZIL HCL 5 MG TABLET PO SCH (10:11)
[2016-10-10] MEDS: DILTIAZEM HCL 240 MG CAPSULE.CR PO SCH (10:11)
[2016-10-10] MEDS: LANSOPRAZOLE 30 MG TAB.RAP.DR PO SCH (10:12)
[2016-10-10] MEDS: FENOFIBRATE NANOCRYSTALLIZED 145 MG TABLET PO SCH (10:12)
[2016-10-10] MEDS: METFORMIN HCL 500 MG TABLET PO SCH ×2 (10:12→16:58)
[2016-10-10] MEDS: TAMSULOSIN HCL 0.4 MG CAP.SR.24H PO SCH (10:12)
[2016-10-10] MEDS: LISINOPRIL 10 MG TABLET PO SCH (10:13)
[2016-10-10] MEDS: FLUTICASONE/SALMETEROL DISKUS 100-50 MCG/DOSE IH SCH (10:15)
[2016-10-10] MEDS: INSULIN LISPRO 100 UNIT/ML 3 ML VIAL SUBCUT SCH ×3 (10:15→16:58)
[2016-10-10] MEDS: LUBIPROSTONE 24 MCG CAPSULE PO SCH (10:15)
[2016-10-10 12:30] VITALS: BP 175/91
== END 2016-10-10 17:00 | DRG 309 ==
LOC: ER 14:03 → UNDOADMIN 16:30 → EH 16:30 → 3N 18:37
PROVIDERS: ADMIT Family Medicine; ATTEND Family Medicine
DX: I48.0 Paroxysmal atrial fibrillation (principal); F02.81 Dementia in other diseases classified elsewhere, unspecified severity, with behavioral disturbance; N13.8 Other obstructive and reflux uropathy; S22.32XA Fracture of one rib, left side, initial encounter for closed fracture; R27.0 Ataxia, unspecified; G30.1 Alzheimer's disease with late onset; K59.01 Slow transit constipation; N40.1 Benign prostatic hyperplasia with lower urinary tract symptoms; G62.0 Drug-induced polyneuropathy; T45.1X5A Adverse effect of antineoplastic and immunosuppressive drugs, initial encounter; E78.5 Hyperlipidemia, unspecified; I10 Essential (primary) hypertension; E11.40 Type 2 diabetes mellitus with diabetic neuropathy, unspecified; M13.842 Other specified arthritis, left hand; M13.841 Other specified arthritis, right hand; W18.30XA Fall on same level, unspecified, initial encounter; Y92.012 Bathroom of single-family (private) house as the place of occurrence of the external cause; Z79.4 Long term (current) use of insulin; Z79.899 Other long term (current) drug therapy; Z86.718 Personal history of other venous thrombosis and embolism; Z90.81 Acquired absence of spleen; Z60.2 Problems related to living alone; Z80.9 Family history of malignant neoplasm, unspecified; Z82.49 Family history of ischemic heart disease and other diseases of the circulatory system
CPT/HCPCS: 36415; 70450; 71010; 80053; 81001; 82550; 82553; 82607; 82962; 84443; 84484; 85025; 85610; 93005; 93010; 96365; 99285; G8978-GP; G8979-GP; J1815; J3490; S0119

== ENCOUNTER 2016-11-01 11:50 | Inpatient (IN) | payer MEDICARE, OTHER ==
--- NOTE | 2016-11-01 12:13 | ER Document Report ---
ED General - General Mode of Arrival: Medic Information source: Patient TRAVEL OUTSIDE OF THE [place] IN LAST 30 DAYS: No - HPI Patient complains to provider of: Generalized weakness and fall Onset: Other - yesterday Associated symptoms: Other - see notes above <ZAIDA RILEY - Last Filed: 11/01/16 15:41> <NIMESH RANDOLPH - Last Filed: 11/01/16 20:05> - General Chief Complaint: General Weakness Stated Complaint: WEAKNESS Time Seen by Provider: 11/01/16 12:01 Notes: 71 year old male with history of atrial fibrillation, hypertension, diabetes, hyperlipidemia, and falls presents to the ED complaining of generalized weakness that started 2 days ago. Patient reports that he was at [facility] secondary to multiple falls where he had physical therapy and was discharged 3 days ago after he improved. Patient states that he became off balance 2 days ago. Patient reports that he suffered a controlled slipped on the floor yesterday and was unable to pick himself off the floor, so he fell asleep on the floor last night. Patient woke up today and was able to get himself up and walk to the bedroom. Patient changed clothing and walked to the kitchen where he took his medications. Shortly after taking his medications the patient fell to the right and was brought to the ED. Patient states that he always appears to fall to his right. PCP: Dr. Britton (ZAIDA RILEY) - Related Data Allergies/Adverse Reactions: No Known Allergies Allergy (Verified 03/04/13 08:41) Home Medications: Current Home Medications Alfuzosin HCl [Uroxatral] 10 mg PO DAILY 11/01/16 [History] Diltiazem HCl [Diltiazem 24Hr ER] 240 mg PO DAILY 11/01/16 [History] Donepezil HCl [Aricept 5 mg Tablet] 5 mg PO DAILY 11/01/16 [History] Esomeprazole Mag Trihydrate [Nexium] 40 mg PO DAILY 11/01/16 [History] Fenofibrate 160 mg PO DAILY 11/01/16 [History] Fluticasone/Salmeterol [Advair 100-50 Diskus 28 Dose] 1 puff IH BID 11/01/16 [ History] Insulin Aspart [Novolog Flexpen] 10 units SUBCUT MEALS 11/01/16 [History] Insulin Glargine,Hum.rec.anlog [Lantus Solostar] 30 units SUBCUT QHS 11/01/16 [ History] Lactulose 20 gm PO DAILY 11/01/16 [History] Lisinopril [Prinivil 40 mg Tablet] 40 mg PO DAILY 11/01/16 [History] Metformin HCl [Metformin HCl ER] 2,000 mg PO WSUPPER 11/01/16 [History] Past Medical History - General Information source: Patient - Social History Smoking Status: Never Smoker Chew tobacco use (# tins/day): No Frequency of alcohol use: None Drug Abuse: None Family History: CAD, Malignancy - Past Medical History Cardiac Medical History: Reports: Hx Atrial Fibrillation, Hx DVT, Hx Hypercholesterolemia, Hx Hypertension - meds x yrs Neurological Medical History: Denies: Hx Cerebrovascular Accident, Hx Seizures Endocrine Medical History: Reports: Hx Diabetes Mellitus Type 2 - "boderline" GI Medical History: Denies: Hx Hepatitis, Hx Hiatal Hernia, Hx Ulcer Musculoskeltal Medical History: Reports Hx Arthritis - B/L hands Psychiatric Medical History: Denies: Hx Depression Infectious Medical History: Denies: Hx Hepatitis Past Surgical History: Reports: Hx Orthopedic Surgery - left acromion orif, left elbow repair, Other - 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 Denies: Hx Open Heart Surgery, Hx Pacemaker - Immunizations Hx Diphtheria, Pertussis, Tetanus Vaccination: - "unknown" Hx Pneumococcal Vaccination: 05/12/09 <ZAIDA RILEY - Last Filed: 11/01/16 15:41> Review of Systems - Review of Systems Constitutional: No symptoms reported EENT: No symptoms reported Cardiovascular: No symptoms reported Respiratory: No symptoms reported Gastrointestinal: No symptoms reported Genitourinary: No symptoms reported Male Genitourinary: No symptoms reported Musculoskeletal: No symptoms reported Skin: No symptoms reported Hematologic/Lymphatic: No symptoms reported Neurological/Psychological: See HPI, Weakness, Gait changes -: Yes All other systems reviewed and negative <ZAIDA RILEY - Last Filed: 11/01/16 15:41> Physical Exam <ZAIDA RILEY - Last Filed: 11/01/16 15:41> <NIMESH RANDOLPH - Last Filed: 11/01/16 20:05> - Vital signs Vitals: Pulse Ox 98 11/01/16 11:51 - Notes Notes: GENERAL: Alert, interacts well. No acute distress. HEAD: Normocephalic, atraumatic. EYES: Pupils equal, round, and reactive to light. Extraocular movements intact. ENT: Oral mucosa moist, tongue midline. NECK: Full range of motion. Supple. Trachea midline. LUNGS: Clear to auscultation bilaterally, no wheezes, rales, or rhonchi. No respiratory distress. HEART: Tachycardic and irregularly irregular. No murmurs, gallops, or rubs. ABDOMEN: Soft, non-tender. Non-distended. Bowel sounds present in all 4 quadrants. EXTREMITIES: Moves all 4 extremities spontaneously. No edema, radial and dorsalis pedis pulses 2/4 bilaterally. No cyanosis. NEUROLOGICAL: Alert and oriented x3. Normal speech. Biceps and patellar DTRs 2+ bilaterally. 5/5 muscle strength to bilateral upper and lower extremities. No pronator drift. Normal dorsiflexsion and plantar flexion bilaterally. Normal heel-acosta and finger to nose test. PSYCH: Normal affect, normal mood. SKIN: Warm, dry, normal turgor. No rashes or lesions noted. (ZAIDA RILEY) Course - Laboratory Result Diagrams: 11/01/16 12:00 11/01/16 12:00 - Consults Dr. Castaneda Time consulted: 15:22 <ZAIDA RILEY - Last Filed: 11/01/16 15:41> - Laboratory Result Diagrams: 11/01/16 12:00 11/01/16 12:00 <NIMESH RANDOLPH - Last Filed: 11/01/16 20:05> - Re-evaluation Re-evalutation: 11/01/16 13:19 CBC unremarkable, INR subtherapeutic at 1.52, and waiting verification that he does use some form of blood thinner, CMP shows slightly elevated BUN at 25, ammonia and low, alkaline phosphatase somewhat elevated 161, cardiac enzymes negative, digoxin is subtherapeutic at 0.74. Again I am awaiting confirmation that the patient actually takes this medication as he is unclear on his medications. EKG is nonischemic but does show A. fib with RVR. For the patient 's atrial fibrillation with rapid ventricular response patient was given a bolus of Cardizem and started on a drip, heart rate has normalized. Patient was given an additional dose of digoxin IV. CBC grossly unremarkable although there is a bandemia there is no leukocytosis or anemia, INR still subtherapeutic at 1.52, patient does not know what his medications are, does not know if he takes any blood thinners although given the lack of liver disease and the prolonged INR I do suspect he takes blood thinners, patient again does not know his medications but his digoxin level is low at 0.74. He is unaware of the fact that he is taking digoxin but given this level I suspect he does. Patient was given an additional dose of digoxin 0.125 mg. Cardiac enzymes negative, patient was given a Cardizem bolus of 25 mg and then started on a drip at 5 an hour, this did not completely control his rate so was increased to 10. Patient is in the low 90s to low 100s. Patient is currently asymptomatic. Chest x-ray says they cannot completely rule out a left lower lobe infiltrate however given his lack of fever, leukocytosis, hypoxia or cough I doubt that this represents a pneumonia and it will not be treated at this time. I discussed this patient with the hospitalist as well as with the patient himself and we are all in agreement with admitting this patient for further treatment of his A. fib RVR. 11/01/16 15:26 (NIMESH RANDOLPH) - Vital Signs Vital signs: Temp Pulse Resp BP Pulse Ox 106 H 28 H 156/90 H 97 11/01/16 19:03 11/01/16 19:03 11/01/16 19:03 11/01/16 19:03 - Laboratory Laboratory results interpreted by me: 11/01/16 11/01/16 11/01/16 12:00 12:00 12:00 RBC 4.23 L MCV 99 H RDW 18.2 H Seg Neuts % (Manual) 82 H Band Neutrophils % 10 H Lymphocytes % (Manual) 4 L Monocytes % (Manual) 0 L Metamyelocytes % 1 H Abs Monocytes (Manual) 0.0 L PT 19.2 H BUN 25 H Glucose 128 H Direct Bilirubin 0.9 H AST 16 L Alkaline Phosphatase 161 H Ammonia Creatine Kinase 25 L Total Protein 5.0 L Albumin 2.7 L Digoxin 0.74 L 11/01/16 12:50 RBC MCV RDW Seg Neuts % (Manual) Band Neutrophils % Lymphocytes % (Manual) Monocytes % (Manual) Metamyelocytes % Abs Monocytes (Manual) PT BUN Glucose Direct Bilirubin AST Alkaline Phosphatase Ammonia < 8.7 L Creatine Kinase Total Protein Albumin Digoxin - EKG Interpretation by Me Additional EKG results interpreted by me: 11/01/16 15:30 EKG shows atrial fibrillation with rapid ventricular response at a rate of 159, left anterior hemiblock, normal R-wave progression, no ST segment elevations or depressions, there are T-wave inversions that are likely rate related in lead III per my interpretation. (NIMESH RANDOLPH) - Consults Dr. Castaneda Reason for consultation: 11/01/16 15:22 Patient was discussed with Dr. Castaneda who agrees to admit the patient to [facility]MC[facility]. (ZAIDA RILEY) Critical Care Note - Critical Care Note Total time excluding time spent on procedures (mins): 35 <NIMESH RANDOLPH - Last Filed: 11/01/16 20:05> Discharge <ZAIDA RILEY - Last Filed: 11/01/16 15:41> - Discharge Admitting Provider: Hospitalist - [facility] Unit Admitted: [facility] <NIMESH RANDOLPH - Last Filed: 11/01/16 20:05> - Discharge Clinical Impression: Atrial fibrillation with RVR Condition: Fair Disposition: ADMITTED INPATIENT Scribe Attestation: 11/01/16 20:05 I personally performed the services described in the documentation, reviewed and edited the documentation which was dictated to the scribe in my presence, and it accurately records my words and actions. (NIMESH RANDOLPH) Scribe Documentation - Scribe Written by Sugaribe:: Clint Carty, 11/01/2016 1343 acting as scribe for :: Mary Ann <ZAIDA RILEY - Last Filed: 11/01/16 15:41>
[2016-11-01] MEDS ORDERED: DILTIAZEM HCL/D5W 125 ML IV PRN (12:14)
[2016-11-01] MEDS ORDERED: DILTIAZEM HCL INJ 25 MG/5 ML VIAL IV ONE (12:14)
[2016-11-01] MEDS ORDERED: ASPIRIN 81 MG TABLET, CHEWABLE PO ONE (12:14)
[2016-11-01 12:26] LABS: HEMATOCRIT 41.7 % (37.9-51.0); HEMOGLOBIN 13.7 g/dL (13.5-17.0); HGB HCT DIFFERENCE -0.6; MEAN CORPUSCULAR HEMOGLOBIN 32.4 pg (27.0-33.4); MEAN CORPUSCULAR HGB CONC 32.8 g/dL (32.0-36.0); MEAN CORPUSCULAR VOLUME 99 fl (80-97); RED BLOOD COUNT 4.23 10^6/uL (4.35-5.55); RED CELL DISTRIBUTION WIDTH 18.2 % (11.5-14.0); WHITE BLOOD COUNT 7.7 10^3/uL (4.0-10.5)
[2016-11-01 12:27] LABS: PROTHROMBIN TIME 19.2 SEC (11.4-15.4)
[2016-11-01 12:36] LABS: ALANINE AMINOTRANSFERASE 36 U/L (21-72); ALBUMIN 2.7 g/dL (3.5-5.0); ALKALINE PHOSPHATASE 161 U/L (38-126); ANION GAP 12 (5-19); ASPARTATE AMINO TRANSFERASE 16 U/L (17-59); BILIRUBIN,DIRECT 0.9 mg/dL (0.0-0.4); BILIRUBIN,TOTAL 1.2 mg/dL (0.2-1.3); BLOOD UREA NITROGEN 25 mg/dL (7-20); CALCIUM 8.9 mg/dL (8.4-10.2); CARBON DIOXIDE 23 mmol/L (22-30); CHLORIDE 107 mmol/L (98-107); CREATINE KINASE 25 U/L (55-170); CREATININE RESULT 0.89 mg/dL (0.52-1.25); DIGOXIN 0.74 ng/mL (0.8-2.0); GLUCOSE 128 mg/dL (75-110); POTASSIUM 4.6 mmol/L (3.6-5.0); SODIUM 141.5 mmol/L (137-145)
[2016-11-01 12:45] LABS: CREATINE KINASE MB 1.08 ng/mL (<4.55)
[2016-11-01 12:46] LABS: TROPONIN I < 0.012 ng/mL
[2016-11-01 12:50] LABS: BAND NEUTROPHILS % (MANUAL) 10 % (3-5); BASOPHILS % (MANUAL) 0 % (0-2); EOSINOPHILS % (MANUAL) 1 % (0-6); LYMPHOCYTES % (MANUAL) 4 % (13-45); NUCLEATED RED BLOOD CELLS 3 /100 WBC (0); TOTAL CELLS COUNTED 100
[2016-11-01 12:52] LABS: ANISOCYTOSIS 1+; BURR CELLS 2+; HOWELL-JOLLY BODIES PRESENT; OVALOCYTES 1+; POIKILOCYTOSIS 3+; POLYCHROMASIA SLIGHT; SCHISTOCYTES 1+; TARGET CELLS 1+; TOXIC GRANULATION 1+
[2016-11-01 12:53] LABS: ROULEAUX 1+
[2016-11-01] MEDS ORDERED: DIGOXIN INJ 0.5 MG/2 ML AMPULE IV ONE (13:06)
--- NOTE | 2016-11-01 13:55 | RADIOLOGY REPORT (SQ) ---
EXAM DESCRIPTION: CT HEAD WITHOUT COMPLETED DATE/TIME: 11/01/2016 1:29 pm REASON FOR STUDY: dizziness, falls COMPARISON: 10/08/2016 TECHNIQUE: Axial images acquired through the brain without intravenous contrast. Images reviewed wi th bone, brain and subdural windows. Images stored on PACS. All CT scanners at this facility use dose modulation, iterative reconstruction, and/or weight based d osing when appropriate to reduce radiation dose to as low as reasonably achievable (ALARA). [facility]: Dose Right [facility]: CareDose [facility]: Dose Right [facility]: Teradose 4D [facility]: Smart Tellja RADIATION DOSE: Up-to-date CT equipment and radiation dose reduction techniques were employed. CTDIv ol: 64.6 mGy. DLP: 1163 mGy-cm. mGy. LIMITATIONS: None. FINDINGS: VENTRICLES: Normal size and contour. CEREBRUM: There is cortical atrophy. There are areas of decreased attenuation in the periventricula r white matter. No masses. No hemorrhage. No midline shift. Normal gan/white matter differentiat ion. No evidence for acute infarction. CEREBELLUM: No masses. No hemorrhage. No alteration of density. No evidence for acute infarction. EXTRAAXIAL SPACES: No fluid collections. No masses. ORBITS AND GLOBE: No intra- or extraconal masses. Normal contour of globe without masses. CALVARIUM: No fracture. PARANASAL SINUSES: No fluid or mucosal thickening. SOFT TISSUES: No mass or hematoma. OTHER: No other significant finding. IMPRESSION: There are involutional changes of aging with chronic microvascular ischemic disease and no acute intracranial pathology. TECHNICAL DOCUMENTATION: JOB ID: [id number] Quality ID # [id number]: Final reports with documentation of one or more dose reduction techniques (e.g., Au tomated exposure control, adjustment of the mA and/or kV according to patient size, use of iterative reconstruction technique) 2010 [employer]- All Rights Reserved
--- NOTE | 2016-11-01 13:57 | RADIOLOGY REPORT (SQ) ---
EXAM DESCRIPTION: CHEST SINGLE VIEW COMPLETED DATE/TIME: 11/01/2016 1:36 pm REASON FOR STUDY: a fib, RVR COMPARISON: 07/13/2012 EXAM PARAMETERS: NUMBER OF VIEWS: One view. TECHNIQUE: Single frontal radiographic view of the chest acquired. RADIATION DOSE: NA LIMITATIONS: None. FINDINGS: LUNGS AND PLEURA: There is retrocardiac opacity. MEDIASTINUM AND HILAR STRUCTURES: No masses. Contour normal. HEART AND VASCULAR STRUCTURES: Cardiomegaly with pulmonary vascular congestion. BONES: No acute findings. HARDWARE: Injection port is present on the left. The tip of the catheter is in the superior vena cav a. OTHER: No other significant finding. IMPRESSION: 1. Cardiomegaly with pulmonary vascular congestion but no florid CHF. 2. A left lower lobe pneumonia cannot be ruled out. TECHNICAL DOCUMENTATION: JOB ID: [id number]
[2016-11-01] MEDS ORDERED: ALBUTEROL SULFATE 0.083% NEB 2.5 MG/3 ML AMPUL NEB PRN (16:03)
[2016-11-01] MEDS ORDERED: ACETAMINOPHEN 325 MG TABLET PO PRN (16:03)
[2016-11-01] MEDS ORDERED: ONDANSETRON 4 MG TAB.RAPDIS PO PRN (16:03)
[2016-11-01] MEDS ORDERED: ONDANSETRON HCL INJ/PF 4 MG/2 ML SDV IV PRN (16:03)
[2016-11-01] MEDS ORDERED: DEXTROSE 50%-WATER 25 GM/50 ML DISP.SYRIN IV PRN ×2 (16:13)
[2016-11-01] MEDS ORDERED: DEXTROSE 40% GEL 15 GM TUBE PO PRN ×2 (16:13)
[2016-11-01] MEDS ORDERED: GLUCAGON,HUMAN RECOMB 1 MG INJ IM PRN (16:13)
--- NOTE | 2016-11-01 16:37 | PDOC H&P ---
History of Present Illness Admission Date/PCP: 11/01/16 15:46 JUAN R KHAN MD Patient complains of: Frequent falling down History of Present Illness: LESTER DELONG is a 71 year old male who [facility]. The patient reports that over the last 2 days he had problems with falling and feeling generalized. The patient presented to emergency room and was found to have atrial fibrillation with a rapid ventricular rate in the 150s. Patient denies having any chest pain associated with this. He denies any cough or shortness of breath. His only real complaint is that he feels weak. He was not aware that he was tachycardic. The patient reports that he has been compliant with his medications. Past Medical History Cardiac Medical History: Reports: Atrial Fibrillation, DVT, Hyperlipidema, Hypertension - meds x yrs Denies: Coronary Artery Disease, Myocardial Infarction Pulmonary Medical History: Denies: Asthma, Bronchitis, Chronic Obstructive Pulmonary Disease (COPD), Pneumonia, Tuberculosis Neurological Medical History: Reports: Other - Neuropathy Endocrine Medical History: Reports: Diabetes Mellitus Type 2 Renal/ Medical History: Reports: None Malignancy Medical History: Reports: Other - Multiple myeloma GI Medical History: Denies: Hepatitis, Hiatal Hernia Musculoskeltal Medical History: Reports: Arthritis - B/L hands Psychiatric Medical History: Reports: Dementia - Mild Denies: Depression Hematology: Denies: Anemia - has polycythemia vera, Sickle Cell Disease Infectious Medical History: Reports: None Past Surgical History Past Surgical History: Reports: Orthopedic Surgery - left acromion orif, left elbow repair, Other - 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 Denies: Pacemaker Social History Information Source: Patient Lives with: Alone Smoking Status: Never Smoker Frequency of Alcohol Use: None Hx Recreational Drug Use: No Drugs: None Hx Prescription Drug Abuse: No - Advance Directive Resuscitation Status: Full Code Surrogate healthcare decision maker:: None Family History Family History: CAD, Malignancy Parental Family History Reviewed: Yes Children Family History Reviewed: No Sibling(s) Family History Reviewed.: No Medication/Allergy Home Medications: Alfuzosin HCl [Uroxatral] 10 mg PO DAILY 11/01/16 Diltiazem HCl [Diltiazem 24Hr ER] 240 mg PO DAILY 11/01/16 Donepezil HCl [Aricept 5 mg Tablet] 5 mg PO DAILY 11/01/16 Esomeprazole Mag Trihydrate [Nexium] 40 mg PO DAILY 11/01/16 Fenofibrate 160 mg PO DAILY 11/01/16 Fluticasone/Salmeterol [Advair 100-50 Diskus 28 Dose] 1 puff IH BID 11/01/16 Insulin Aspart [Novolog Flexpen] 10 units SUBCUT MEALS 11/01/16 Insulin Glargine,Hum.rec.anlog [Lantus Solostar] 30 units SUBCUT QHS 11/01/16 Lactulose 20 gm PO DAILY 11/01/16 Lisinopril [Prinivil 40 mg Tablet] 40 mg PO DAILY 11/01/16 Metformin HCl [Metformin HCl ER] 2,000 mg PO WSUPPER 11/01/16 Allergies/Adverse Reactions: No Known Allergies Allergy (Verified 03/04/13 08:41) Review of Systems Constitutional: PRESENT: weakness. ABSENT: chills, fever(s), headache(s), weight gain, weight loss Eyes: ABSENT: visual disturbances Ears: ABSENT: hearing changes Cardiovascular: ABSENT: chest pain, dyspnea on exertion, edema, orthropnea, palpitations Respiratory: ABSENT: cough, hemoptysis Gastrointestinal: ABSENT: abdominal pain, constipation, diarrhea, hematemesis, hematochezia, nausea, vomiting Musculoskeletal: PRESENT: back pain Integumentary: ABSENT: rash, wounds Neurological: PRESENT: paresthesias - Of the legs from neuropathy Psychiatric: ABSENT: anxiety, depression Endocrine: ABSENT: cold intolerance, heat intolerance, polydipsia, polyuria Hematologic/Lymphatic: ABSENT: easy bleeding, easy bruising Physical Exam Vital Signs: Temp Pulse Resp BP Pulse Ox 34 H 143/86 H 92 11/01/16 14:01 11/01/16 14:01 11/01/16 14:01 General appearance: PRESENT: no acute distress, obese Head exam: PRESENT: atraumatic, normocephalic Eye exam: PRESENT: conjunctiva pink. ABSENT: scleral icterus Ear exam: PRESENT: normal external ear exam Mouth exam: PRESENT: moist, tongue midline Neck exam: ABSENT: carotid bruit, JVD, lymphadenopathy, thyromegaly Respiratory exam: PRESENT: clear to auscultation esme. ABSENT: rales, rhonchi, wheezes Cardiovascular exam: PRESENT: irregular rhythm, systolic murmur. ABSENT: diastolic murmur, rubs Pulses: PRESENT: normal dorsalis pedis pul Vascular exam: PRESENT: normal capillary refill GI/Abdominal exam: PRESENT: normal bowel sounds, soft. ABSENT: distended, guarding, mass, organolmegaly, rebound, tenderness Rectal exam: PRESENT: deferred Extremities exam: ABSENT: calf tenderness, clubbing, pedal edema Neurological exam: PRESENT: alert, awake, oriented to person, oriented to place , oriented to time, oriented to situation, CN II-XII grossly intact. ABSENT: motor sensory deficit Psychiatric exam: PRESENT: appropriate affect Skin exam: PRESENT: dry, intact, warm. ABSENT: cyanosis, rash Results Impressions: Chest X-Ray 11/01/16 12:14 IMPRESSION: 1. Cardiomegaly with pulmonary vascular congestion but no florid CHF. 2. A left lower lobe pneumonia cannot be ruled out. Head CT 11/01/16 12:14 IMPRESSION: There are involutional changes of aging with chronic microvascular ischemic disease and no acute intracranial pathology. Assessment & Plan - Diagnosis (1) Atrial fibrillation with RVR Is this a current diagnosis for this admission?: YesPlan: Patient has received IV diltiazem and IV digoxin in the emergency room. We will continue with the diltiazem drip for rate control. The patient has problems with frequent falls and I feel would be at higher risk for injuring himself if he is on long-term anticoagulation however will defer that to his primary care doctor Dr. Bryson when he returns. The patient will get serial cardiac enzymes to make certain that he has not had an acute cardiac event although my suspicion is that he has not. (2) Diabetes mellitus Is this a current diagnosis for this admission?: YesPlan: We will continue with Lantus and sliding scale insulin. (3) Peripheral neuropathy Is this a current diagnosis for this admission?: Yes (4) Hypertension Is this a current diagnosis for this admission?: YesPlan: Continue with Prinivil and diltiazem. (5) DVT (deep venous thrombosis) Is this a current diagnosis for this admission?: YesPlan: Has been on anticoagulation previously. He reports that he is not currently on it however his INR is slightly elevated. (6) Hyperlipidemia Is this a current diagnosis for this admission?: YesPlan: Has been on fenofibrate as an outpatient. (7) Multiple myeloma Is this a current diagnosis for this admission?: YesPlan: Patient is followed by Dr. Arriaga as an outpatient (8) Gastroesophageal reflux disease Is this a current diagnosis for this admission?: YesPlan: Continue with Nexium (9) Benign prostatic hyperplasia Is this a current diagnosis for this admission?: YesPlan: No evidence for urinary obstruction at this time. - Time Time Spent: 50 to 70 Minutes - Inpatient Certification Medical Necessity: Need Close Monitoring Due to Risk of Patient Decompensation
[2016-11-01 17:53] LABS: CREATINE KINASE MB 1.16 ng/mL (<4.55); TROPONIN I 0.014 ng/mL
[2016-11-01] MEDS ORDERED: DILTIAZEM HCL/D5W 125 MG/125 ML RTUINJ IV ONE (19:34)
[2016-11-01 22:29] LABS: CREATINE KINASE MB 0.96 ng/mL (<4.55)
[2016-11-01 22:32] LABS: TROPONIN I 0.015 ng/mL
[2016-11-01] MEDS: INSULIN GLARGINE,HUM.REC.ANLOG 300 UNIT/3 ML INSULN.PEN SUBCUT SCH (22:35)
[2016-11-01] MEDS: FLUTICASONE/SALMETEROL DISKUS 100-50 MCG/DOSE IH SCH (22:35)
[2016-11-01 23:04] LABS: ARTERIAL BLOOD BASE EXCESS 1.4 mmol/L; ARTERIAL BLOOD O2 SATURATION 96.8 % (94-98)
[2016-11-02 04:55] LABS: HEMATOCRIT 41.1 % (37.9-51.0); HEMOGLOBIN 13.1 g/dL (13.5-17.0); HGB HCT DIFFERENCE -1.8; MEAN CORPUSCULAR HEMOGLOBIN 31.8 pg (27.0-33.4); MEAN CORPUSCULAR HGB CONC 31.9 g/dL (32.0-36.0); MEAN CORPUSCULAR VOLUME 100 fl (80-97); RED BLOOD COUNT 4.13 10^6/uL (4.35-5.55); RED CELL DISTRIBUTION WIDTH 18.6 % (11.5-14.0); WHITE BLOOD COUNT 8.2 10^3/uL (4.0-10.5)
[2016-11-02 05:05] LABS: ANION GAP 12 (5-19); BLOOD UREA NITROGEN 21 mg/dL (7-20); CALCIUM 8.4 mg/dL (8.4-10.2); CARBON DIOXIDE 22 mmol/L (22-30); CHLORIDE 105 mmol/L (98-107); CREATININE RESULT 0.74 mg/dL (0.52-1.25); GLUCOSE 119 mg/dL (75-110); MAGNESIUM 1.9 mg/dL (1.6-2.3); POTASSIUM 4.2 mmol/L (3.6-5.0); SODIUM 139.1 mmol/L (137-145)
[2016-11-02 05:10] LABS: CREATINE KINASE < 20 U/L (55-170)
[2016-11-02 05:14] LABS: CREATINE KINASE MB 0.71 ng/mL (<4.55); TROPONIN I 0.013 ng/mL
[2016-11-02] MEDS: LANSOPRAZOLE 30 MG TAB.RAP.DR PO SCH (05:30)
[2016-11-02 05:31] LABS: BAND NEUTROPHILS % (MANUAL) 3 % (3-5); BASOPHILS % (MANUAL) 0 % (0-2); EOSINOPHILS % (MANUAL) 0 % (0-6); LYMPHOCYTES % (MANUAL) 1 % (13-45); TOTAL CELLS COUNTED 100
[2016-11-02 05:32] LABS: NUCLEATED RED BLOOD CELLS 5 /100 WBC (0)
[2016-11-02 05:38] LABS: ACANTHOCYTES 1+; ANISOCYTOSIS 2+; OVALOCYTES 1+; POIKILOCYTOSIS 1+; TOXIC GRANULATION 1+
[2016-11-02] MEDS: ENOXAPARIN SODIUM INJ 40 MG/0.4 ML DISP.SYRIN SUBCUT SCH (09:36)
[2016-11-02] MEDS: TAMSULOSIN HCL 0.4 MG CAP.SR.24H PO SCH (09:37)
[2016-11-02] MEDS: FINASTERIDE 5 MG TABLET PO SCH (09:37)
[2016-11-02] MEDS: FENOFIBRATE NANOCRYSTALLIZED 145 MG TABLET PO SCH (09:37)
[2016-11-02] MEDS: LISINOPRIL 10 MG TABLET PO SCH (09:37)
[2016-11-02] MEDS: FLUTICASONE/SALMETEROL DISKUS 100-50 MCG/DOSE IH SCH ×2 (09:38→21:49)
[2016-11-02] MEDS: AMIODARONE HCL 200 MG TABLET PO SCH ×2 (09:38→21:50)
[2016-11-02] MEDS: LACTULOSE SYRUP 20 GM/30 ML UDCUP PO SCH (09:38)
[2016-11-02] MEDS ORDERED: (PENDING PHARMACY ID) (Fenofibrate [Fenofibrate] 160 MG) PO SCH (10:00)
[2016-11-02] MEDS ORDERED: DONEPEZIL HCL 5 MG TABLET PO SCH (10:00)
[2016-11-02] MEDS: IPRATROPIUM/ALBUTEROL 0.5-2.5 MG/3 ML AMPUL NEB PRN (15:31)
--- NOTE | 2016-11-02 17:40 | EKG REPORT ---
SEVERITY:- ABNORMAL ECG - ATRIAL FIBRILLATION WITH RAPID V-RATE LEFT ANTERIOR FASCICULAR BLOCK : Confirmed by: Chinyere Davis 02-Nov-2016 17:39:41
[2016-11-02] MEDS ORDERED: FUROSEMIDE INJ/PF 40 MG/4 ML SDV IV ONE (18:15)
[2016-11-02] MEDS: CEFTRIAXONE 1 GM/D5W RTU 50 ML IV SCH (18:36)
[2016-11-02] MEDS: INSULIN LISPRO 100 UNIT/ML 3 ML VIAL SUBCUT PRN (21:50)
[2016-11-02] MEDS: INSULIN GLARGINE,HUM.REC.ANLOG 300 UNIT/3 ML INSULN.PEN SUBCUT SCH (21:50)
[2016-11-03] MEDS: DILTIAZEM HCL/D5W 125 ML IV PRN ×3 (03:08→23:10)
[2016-11-03] MEDS: LANSOPRAZOLE 30 MG TAB.RAP.DR PO SCH (05:10)
--- NOTE | 2016-11-03 05:18 | PDOC PROGRESS REPORT ---
Subjective Progress Note for:: 11/02/16 Subjective:: no dyspnea. Physical Exam Vital Signs: Temp Pulse Resp BP Pulse Ox 98.6 F 96 22 H 134/76 H 97 11/02/16 19:29 11/03/16 05:00 11/02/16 19:29 11/03/16 05:00 11/03/16 04:01 Intake & Output 11/01/16 11/02/16 11/03/16 07:59 07:59 07:59 Intake Total 630 970 Output Total 625 500 Balance 5 470 Weight 185 lb 6.54 oz General appearance: PRESENT: no acute distress Respiratory exam: PRESENT: rales - few L base Cardiovascular exam: PRESENT: irregular rhythm. ABSENT: diastolic murmur, systolic murmur GI/Abdominal exam: ABSENT: mass, organolmegaly, tenderness Extremities exam: ABSENT: pedal edema Neurological exam: PRESENT: oriented to situation Psychiatric exam: PRESENT: appropriate affect Results Laboratory Results: 11/02/16 03:50 11/02/16 03:50 11/02/16 11/02/16 11/02/16 03:50 03:50 03:50 WBC 8.2 RBC 4.13 L Hgb 13.1 L Hct 41.1 MCV 100 H MCH 31.8 MCHC 31.9 L RDW 18.6 H Plt Count 271 Seg Neutrophils % Not Reportable Lymphocytes % Not Reportable Monocytes % Not Reportable Eosinophils % Not Reportable Basophils % Not Reportable Absolute Neutrophils Not Reportable Absolute Lymphocytes Not Reportable Absolute Monocytes Not Reportable Absolute Eosinophils Not Reportable Absolute Basophils Not Reportable Sodium 139.1 Potassium 4.2 Chloride 105 Carbon Dioxide 22 Anion Gap 12 BUN 21 H Creatinine 0.74 Est GFR ( Amer) > 60 Est GFR (Non-Af Amer) > 60 Glucose 119 H Calcium 8.4 Magnesium 1.9 Prostate Specific Ag 0.480 11/01/16 11/01/16 11/01/16 17:18 17:18 21:57 Creatine Kinase 24 L 24 L CK-MB (CK-2) 1.16 Troponin I 0.014 11/01/16 11/02/16 11/02/16 21:57 03:50 03:50 Creatine Kinase < 20 L CK-MB (CK-2) 0.96 0.71 Troponin I 0.015 0.013 Impressions: Chest X-Ray 11/01/16 12:14 IMPRESSION: 1. Cardiomegaly with pulmonary vascular congestion but no florid CHF. 2. A left lower lobe pneumonia cannot be ruled out. Head CT 11/01/16 12:14 IMPRESSION: There are involutional changes of aging with chronic microvascular ischemic disease and no acute intracranial pathology. Assessment & Plan - Diagnosis (1) Atrial fibrillation with RVR Is this a current diagnosis for this admission?: YesPlan: Outpatient diltiazem failed. I did not try metoprolol because of emphysema. I started amiodarone yesterday. Note was not saved apparently.
--- NOTE | 2016-11-03 07:06 | PDOC PROGRESS REPORT ---
Subjective Progress Note for:: 11/03/16 Subjective:: 4y intermittant tachypnea since fracture c2. 3y ago treated for MAC. 2y ago normal echo. 1y ago fev1=67% Physical Exam Vital Signs: Temp Pulse Resp BP Pulse Ox 98.6 F 90 22 H 145/78 H 97 11/02/16 19:29 11/03/16 06:00 11/02/16 19:29 11/03/16 06:00 11/03/16 04:01 Intake & Output 11/01/16 11/02/16 11/03/16 07:59 07:59 07:59 Intake Total 630 1614 Output Total 625 1800 Balance 5 -186 Weight 185 lb 6.54 oz 186 lb 1.122 oz General appearance: PRESENT: no acute distress Respiratory exam: PRESENT: clear to auscultation esme Cardiovascular exam: PRESENT: irregular rhythm. ABSENT: diastolic murmur, systolic murmur GI/Abdominal exam: ABSENT: mass, organolmegaly, tenderness Extremities exam: ABSENT: pedal edema Neurological exam: PRESENT: oriented to situation Psychiatric exam: PRESENT: appropriate affect Results Laboratory Results: 11/02/16 03:50 11/02/16 03:50 11/02/16 03:50 Prostate Specific Ag 0.480 Abnormal - 24 hr 11/02/16 11/02/16 11/02/16 11:57 15:31 19:25 D-Dimer 0.67 H POC Glucose 181 H 163 H 11/02/16 21:02 D-Dimer POC Glucose 238 H Impressions: Chest X-Ray 11/01/16 12:14 IMPRESSION: 1. Cardiomegaly with pulmonary vascular congestion but no florid CHF. 2. A left lower lobe pneumonia cannot be ruled out. Head CT 11/01/16 12:14 IMPRESSION: There are involutional changes of aging with chronic microvascular ischemic disease and no acute intracranial pathology. Assessment & Plan - Diagnosis (1) Atrial fibrillation with RVR Is this a current diagnosis for this admission?: YesPlan: diltiazem 15mg/h overnight. Now ok on 10. Continue amiodarone loading. (2) Benign prostatic hyperplasia Qualifiers: Lower urinary tract symptom detail: urinary retention Is this a current diagnosis for this admission?: YesPlan: continue finasteride. Voiding trial tomorrow. (3) Hypoxia Is this a current diagnosis for this admission?: YesPlan: 3L sat ok. Started ceftriaxone for LLL infiltrate. Furosemide did not help. R36 now. Ddimer+. Cta pending. (4) Ataxia Is this a current diagnosis for this admission?: YesPlan: Was better in SNF but started falling again at home. Poor prognosis for neuropathy and small vessel disease. - Inpatient Certification Based on my medical assessment, after consideration of the patient's comorbidities, presenting symptoms, or acuity I expect that the services needed warrant INPATIENT care.: Yes I certify that my determination is in accordance with my understanding of Medicare's requirements for reasonable and necessary INPATIENT services [42 CFR 412.3e].: Yes Medical Necessity: Failure to Improve With Outpatient Therapy, Significant Comorbidiites Make Outpatient Treatment Too Risky, Need Close Monitoring Due to Risk of Patient Decompensation, Need For Continuous Telemetry Monitoring, Need for IV Antibiotics, Risk of Complication if Not Cared For in Hospital, Risk of Diagnosis Which Will Require Inpatient Eval/Care/Monitoring
[2016-11-03] MEDS: LACTULOSE SYRUP 20 GM/30 ML UDCUP PO SCH (09:28)
[2016-11-03] MEDS: FINASTERIDE 5 MG TABLET PO SCH (09:29)
[2016-11-03] MEDS: LISINOPRIL 10 MG TABLET PO SCH (09:29)
[2016-11-03] MEDS: FENOFIBRATE NANOCRYSTALLIZED 145 MG TABLET PO SCH (09:31)
[2016-11-03] MEDS: ENOXAPARIN SODIUM INJ 40 MG/0.4 ML DISP.SYRIN SUBCUT SCH (09:31)
[2016-11-03] MEDS: AMIODARONE HCL 200 MG TABLET PO SCH ×2 (09:31→21:34)
[2016-11-03] MEDS: TAMSULOSIN HCL 0.4 MG CAP.SR.24H PO SCH (09:31)
[2016-11-03] MEDS: FLUTICASONE/SALMETEROL DISKUS 100-50 MCG/DOSE IH SCH ×2 (09:32→21:34)
--- NOTE | 2016-11-03 10:46 | RADIOLOGY REPORT (SQ) ---
EXAM DESCRIPTION: CTA CHEST COMPLETED DATE/TIME: 11/03/2016 10:28 am REASON FOR STUDY: hypoxia Ddimer0.7 shortness of breath COMPARISON: Chest radiograph 11/01/2016 CT 2016. TECHNIQUE: CT scan of the chest performed using helical scanning technique with dynamic intravenous contrast injection. Images reviewed with lung, soft tissue and bone windows. Reconstructed coronal and sagittal MPR images reviewed. Additional 3 dimensional post-processing performed to develop Maximal Intensity Projection images (NE P). All images stored on PACS. All CT scanners at this facility use dose modulation, iterative reconstruction, and/or weight based d osing when appropriate to reduce radiation dose to as low as reasonably achievable (ALARA). [facility]: Dose Right [facility]: CareDose [facility]: Dose Right [facility]: Teradose 4D [facility]: Crush on original products CONTRAST TYPE AND DOSE: contrast/concentration: Isovue 370.00 mg/ml; Total Contrast Delivered: 74.0 ml; Total Saline Delivered: 107.0 ml RENAL FUNCTION: GFR > 60. RADIATION DOSE: Up-to-date CT equipment and radiation dose reduction techniques were employed. CTDIv ol: 17.8 - 23.2 mGy. DLP: 664 mGy-cm. . LIMITATIONS: None. FINDINGS: LUNGS AND PLEURA: Small bilateral pleural effusions. Consolidation at the left base with air bronchograms. Stable right upper lobe nodule versus scar. AORTA AND GREAT VESSELS: No aneurysm or dissection. HEART: No pericardial effusion. PULMONARY ARTERIES: No emboli visualized in the main pulmonary arteries or the segmental branches. HILAR AND MEDIASTINAL STRUCTURES: No identified masses or abnormal nodes. HARDWARE: Venous access catheter. UPPER ABDOMEN: No significant findings. Limited exam. THYROID AND OTHER SOFT TISSUES: No masses. No adenopathy. BONES: Expansile bony lesions appear to be stable. There is increasing compression fracture of the T 2 vertebral body when compared with previous. Other compression fractures stable. 3D MIPS: Confirm above findings. OTHER: No other significant finding. IMPRESSION: No pulmonary emboli. Extensive left lower lobe pneumonia with air bronchograms. Stable right upper lobe scar/ mass. Extensive bony lesions in the ribs appear to be stable. There is an increasing compression fracture of the T2 vertebral body. TECHNICAL DOCUMENTATION: JOB ID: [id number] Quality ID # [id number]: Final reports with documentation of one or more dose reduction techniques (e.g., Au tomated exposure control, adjustment of the mA and/or kV according to patient size, use of iterative reconstruction technique) 2010 [employer]- All Rights Reserved
[2016-11-03] MEDS: CEFTRIAXONE 1 GM/D5W RTU 50 ML IV SCH (17:05)
[2016-11-03] MEDS: INSULIN GLARGINE,HUM.REC.ANLOG 300 UNIT/3 ML INSULN.PEN SUBCUT SCH (21:37)
[2016-11-04] MEDS: DILTIAZEM HCL/D5W 125 ML IV PRN (05:14)
[2016-11-04] MEDS: LANSOPRAZOLE 30 MG TAB.RAP.DR PO SCH (05:15)
--- NOTE | 2016-11-04 08:38 | PDOC PROGRESS REPORT ---
Subjective Progress Note for:: 11/04/16 Subjective:: cough & dyspnea slightly better Physical Exam Vital Signs: Temp Pulse Resp BP Pulse Ox 98.7 F 101 H 18 146/78 H 99 11/04/16 07:47 11/04/16 07:47 11/04/16 07:47 11/04/16 07:47 11/04/16 07:47 Intake & Output 11/03/16 11/04/16 11/05/16 07:59 07:59 07:59 Intake Total 1614 2690 Output Total 1800 1475 Balance -186 1215 Weight 186 lb 1.122 oz 186 lb 4.65 oz General appearance: PRESENT: no acute distress Respiratory exam: PRESENT: clear to auscultation esme Cardiovascular exam: PRESENT: irregular rhythm. ABSENT: diastolic murmur, systolic murmur GI/Abdominal exam: ABSENT: mass, organolmegaly, tenderness Extremities exam: ABSENT: pedal edema Neurological exam: PRESENT: oriented to situation Psychiatric exam: PRESENT: appropriate affect Results Laboratory Results: 11/02/16 03:50 11/02/16 03:50 Abnormal - 24 hr 11/03/16 11/03/16 11/03/16 11:53 16:11 21:32 POC Glucose 130 H 120 H 145 H 11/04/16 05:44 POC Glucose 112 H Impressions: Chest X-Ray 11/01/16 12:14 IMPRESSION: 1. Cardiomegaly with pulmonary vascular congestion but no florid CHF. 2. A left lower lobe pneumonia cannot be ruled out. Head CT 11/01/16 12:14 IMPRESSION: There are involutional changes of aging with chronic microvascular ischemic disease and no acute intracranial pathology. Chest/Abdomen CTA 11/02/16 00:00 IMPRESSION: No pulmonary emboli. Extensive left lower lobe pneumonia with air bronchograms. Stable right upper lobe scar/ mass. Extensive bony lesions in the ribs appear to be stable. There is an increasing compression fracture of the T2 vertebral body. Assessment & Plan - Diagnosis (1) Atrial fibrillation with RVR Is this a current diagnosis for this admission?: YesPlan: switch IV diltiazem to po 180. Continue loading amiodarone. (2) Benign prostatic hyperplasia Qualifiers: Lower urinary tract symptom detail: urinary retention Is this a current diagnosis for this admission?: YesPlan: psa0.5. Voiding trial. (3) Hypoxia Is this a current diagnosis for this admission?: YesPlan: no pe just LLL consolidation on cta (4) Ataxia Is this a current diagnosis for this admission?: Yes (5) Bacterial lobar pneumonia Is this a current diagnosis for this admission?: YesPlan: continue ceftri. Avoid azith & levaquin because of QT amiodarone risk. - Inpatient Certification Medical Necessity: Significant Comorbidiites Make Outpatient Treatment Too Risky , Need Close Monitoring Due to Risk of Patient Decompensation, Need For Continuous Telemetry Monitoring, Need for IV Antibiotics, Risk of Complication if Not Cared For in Hospital, Risk of Diagnosis Which Will Require Inpatient Eval/Care/Monitoring
[2016-11-04] MEDS: FLUTICASONE/SALMETEROL DISKUS 100-50 MCG/DOSE IH SCH ×2 (10:39→21:29)
[2016-11-04] MEDS: DILTIAZEM HCL 180 MG CAPSULE.CR PO SCH (10:39)
[2016-11-04] MEDS: FINASTERIDE 5 MG TABLET PO SCH (10:39)
[2016-11-04] MEDS: TAMSULOSIN HCL 0.4 MG CAP.SR.24H PO SCH (10:39)
[2016-11-04] MEDS: LISINOPRIL 10 MG TABLET PO SCH (10:39)
[2016-11-04] MEDS: ENOXAPARIN SODIUM INJ 40 MG/0.4 ML DISP.SYRIN SUBCUT SCH (10:40)
[2016-11-04] MEDS: LUBIPROSTONE 24 MCG CAPSULE PO SCH ×2 (10:40→17:20)
[2016-11-04] MEDS: AMIODARONE HCL 200 MG TABLET PO SCH ×2 (10:40→21:29)
[2016-11-04] MEDS: LACTULOSE SYRUP 20 GM/30 ML UDCUP PO SCH (10:40)
[2016-11-04] MEDS: FENOFIBRATE NANOCRYSTALLIZED 145 MG TABLET PO SCH (10:40)
[2016-11-04] MEDS: CEFTRIAXONE 1 GM/D5W RTU 50 ML IV SCH (17:21)
[2016-11-04] MEDS: INSULIN GLARGINE,HUM.REC.ANLOG 300 UNIT/3 ML INSULN.PEN SUBCUT SCH (21:30)
[2016-11-05] MEDS: LANSOPRAZOLE 30 MG TAB.RAP.DR PO SCH (06:32)
--- NOTE | 2016-11-05 07:25 | PDOC PROGRESS REPORT ---
Subjective Progress Note for:: 11/05/16 Subjective:: dyspnea same Physical Exam Vital Signs: Temp Pulse Resp BP Pulse Ox 97.7 F 105 H 30 H 144/89 H 95 11/05/16 04:18 11/05/16 06:59 11/05/16 04:18 11/05/16 04:18 11/05/16 04:18 Intake & Output 11/03/16 11/04/16 11/05/16 07:59 07:59 07:59 Intake Total 1614 2690 941 Output Total 1800 1475 1000 Balance -186 1215 -59 Weight 186 lb 1.122 oz 186 lb 4.65 oz 183 lb 3.266 oz General appearance: PRESENT: no acute distress Respiratory exam: PRESENT: clear to auscultation esme, tachypnea, other - E to A changes L base Cardiovascular exam: PRESENT: irregular rhythm. ABSENT: diastolic murmur, systolic murmur GI/Abdominal exam: ABSENT: mass, organolmegaly, tenderness Extremities exam: ABSENT: pedal edema Neurological exam: PRESENT: oriented to situation Psychiatric exam: PRESENT: appropriate affect Results Laboratory Results: 11/02/16 03:50 11/02/16 03:50 Abnormal - 24 hr 11/04/16 11/04/16 11/04/16 11:19 15:42 21:28 POC Glucose 149 H 154 H 138 H Impressions: Chest X-Ray 11/01/16 12:14 IMPRESSION: 1. Cardiomegaly with pulmonary vascular congestion but no florid CHF. 2. A left lower lobe pneumonia cannot be ruled out. Head CT 11/01/16 12:14 IMPRESSION: There are involutional changes of aging with chronic microvascular ischemic disease and no acute intracranial pathology. Chest/Abdomen CTA 11/02/16 00:00 IMPRESSION: No pulmonary emboli. Extensive left lower lobe pneumonia with air bronchograms. Stable right upper lobe scar/ mass. Extensive bony lesions in the ribs appear to be stable. There is an increasing compression fracture of the T2 vertebral body. Assessment & Plan - Diagnosis (1) Atrial fibrillation with RVR Is this a current diagnosis for this admission?: YesPlan: keep loading amiodarone (2) Benign prostatic hyperplasia Qualifiers: Lower urinary tract symptom detail: urinary retention Is this a current diagnosis for this admission?: Yes (3) Hypoxia Is this a current diagnosis for this admission?: Yes (4) Ataxia Is this a current diagnosis for this admission?: YesPlan: phydical therapy (5) Bacterial lobar pneumonia Is this a current diagnosis for this admission?: YesPlan: continue ceftri - Inpatient Certification Medical Necessity: Failure to Improve With Outpatient Therapy, Significant Comorbidiites Make Outpatient Treatment Too Risky, Need Close Monitoring Due to Risk of Patient Decompensation, Need For Continuous Telemetry Monitoring, Risk of Complication if Not Cared For in Hospital, Risk of Diagnosis Which Will Require Inpatient Eval/Care/Monitoring
[2016-11-05] MEDS: DILTIAZEM HCL 180 MG CAPSULE.CR PO SCH (10:31)
[2016-11-05] MEDS: ENOXAPARIN SODIUM INJ 40 MG/0.4 ML DISP.SYRIN SUBCUT SCH (10:31)
[2016-11-05] MEDS: FINASTERIDE 5 MG TABLET PO SCH (10:31)
[2016-11-05] MEDS: AMIODARONE HCL 200 MG TABLET PO SCH ×2 (10:31→23:09)
[2016-11-05] MEDS: LISINOPRIL 10 MG TABLET PO SCH (10:31)
[2016-11-05] MEDS: TAMSULOSIN HCL 0.4 MG CAP.SR.24H PO SCH (10:31)
[2016-11-05] MEDS: FENOFIBRATE NANOCRYSTALLIZED 145 MG TABLET PO SCH (10:31)
[2016-11-05] MEDS: LACTULOSE SYRUP 20 GM/30 ML UDCUP PO SCH (10:32)
[2016-11-05] MEDS: LUBIPROSTONE 24 MCG CAPSULE PO SCH ×2 (10:32→18:19)
[2016-11-05] MEDS: FLUTICASONE/SALMETEROL DISKUS 100-50 MCG/DOSE IH SCH ×2 (10:32→23:09)
[2016-11-05] MEDS: CEFTRIAXONE 1 GM/D5W RTU 50 ML IV SCH (18:21)
[2016-11-05] MEDS ORDERED: INSULIN GLARGINE,HUM.REC.ANLOG 1,000 UNIT/10 ML UNIT SUBCUT ONE (23:03)
[2016-11-05] MEDS: INSULIN GLARGINE,HUM.REC.ANLOG 300 UNIT/3 ML INSULN.PEN SUBCUT SCH (23:09)
[2016-11-06] MEDS: IPRATROPIUM/ALBUTEROL 0.5-2.5 MG/3 ML AMPUL NEB PRN (00:11)
[2016-11-06] MEDS: LANSOPRAZOLE 30 MG TAB.RAP.DR PO SCH (05:25)
--- NOTE | 2016-11-06 07:38 | PDOC PROGRESS REPORT ---
Subjective Progress Note for:: 11/06/16 Subjective:: dyspnea & cough same. Voiding Physical Exam Vital Signs: Temp Pulse Resp BP Pulse Ox 99.4 F 115 H 20 135/81 H 99 11/06/16 03:38 11/06/16 06:58 11/06/16 03:38 11/06/16 03:38 11/06/16 03:38 Intake & Output 11/04/16 11/05/16 11/06/16 07:59 07:59 07:59 Intake Total 2690 941 936 Output Total 1475 1000 400 Balance 1215 -59 536 Weight 186 lb 4.65 oz 183 lb 3.266 oz 182 lb 15.739 oz General appearance: PRESENT: no acute distress Respiratory exam: PRESENT: clear to auscultation esme, other - less EtoA L base Cardiovascular exam: PRESENT: irregular rhythm, tachycardia. ABSENT: diastolic murmur, systolic murmur GI/Abdominal exam: ABSENT: mass, organolmegaly, tenderness Extremities exam: ABSENT: pedal edema Neurological exam: PRESENT: oriented to situation Psychiatric exam: PRESENT: appropriate affect Results Laboratory Results: 11/02/16 03:50 11/02/16 03:50 Abnormal - 24 hr 11/05/16 11/05/16 11/05/16 12:27 16:30 22:42 POC Glucose 161 H 147 H 124 H Impressions: Chest X-Ray 11/01/16 12:14 IMPRESSION: 1. Cardiomegaly with pulmonary vascular congestion but no florid CHF. 2. A left lower lobe pneumonia cannot be ruled out. Head CT 11/01/16 12:14 IMPRESSION: There are involutional changes of aging with chronic microvascular ischemic disease and no acute intracranial pathology. Chest/Abdomen CTA 11/02/16 00:00 IMPRESSION: No pulmonary emboli. Extensive left lower lobe pneumonia with air bronchograms. Stable right upper lobe scar/ mass. Extensive bony lesions in the ribs appear to be stable. There is an increasing compression fracture of the T2 vertebral body. Assessment & Plan - Diagnosis (1) Atrial fibrillation with RVR Is this a current diagnosis for this admission?: Yes (2) Benign prostatic hyperplasia Qualifiers: Lower urinary tract symptom detail: urinary retention Is this a current diagnosis for this admission?: Yes (3) Hypoxia Is this a current diagnosis for this admission?: Yes (4) Ataxia Is this a current diagnosis for this admission?: YesPlan: walked with PT (5) Bacterial lobar pneumonia Is this a current diagnosis for this admission?: YesPlan: slow progress. Not ready for home.
[2016-11-06] MEDS: LUBIPROSTONE 24 MCG CAPSULE PO SCH ×2 (09:30→17:49)
[2016-11-06] MEDS: LISINOPRIL 10 MG TABLET PO SCH (09:30)
[2016-11-06] MEDS: FENOFIBRATE NANOCRYSTALLIZED 145 MG TABLET PO SCH (09:31)
[2016-11-06] MEDS: AMIODARONE HCL 200 MG TABLET PO SCH ×2 (09:31→21:30)
[2016-11-06] MEDS: DILTIAZEM HCL 180 MG CAPSULE.CR PO SCH (09:31)
[2016-11-06] MEDS: TAMSULOSIN HCL 0.4 MG CAP.SR.24H PO SCH (09:31)
[2016-11-06] MEDS: LACTULOSE SYRUP 20 GM/30 ML UDCUP PO SCH (09:31)
[2016-11-06] MEDS: FINASTERIDE 5 MG TABLET PO SCH (09:31)
[2016-11-06] MEDS: ENOXAPARIN SODIUM INJ 40 MG/0.4 ML DISP.SYRIN SUBCUT SCH (09:31)
[2016-11-06] MEDS: FLUTICASONE/SALMETEROL DISKUS 100-50 MCG/DOSE IH SCH ×2 (09:32→21:29)
[2016-11-06] MEDS ORDERED: VANCOMYCIN HCL 0 MG in DEXTROSE 5%-WATER 250 ML IV NR (15:45)
[2016-11-06] MEDS: CEFTRIAXONE 1 GM/D5W RTU 50 ML IV SCH (17:49)
[2016-11-06] MEDS: VANCOMYCIN HCL 1,500 MG in DEXTROSE 5%-WATER 250 ML IV SCH (20:43)
[2016-11-06] MEDS ORDERED: DILTIAZEM HCL 60 MG TABLET ONE (21:13)
[2016-11-06] MEDS: INSULIN GLARGINE,HUM.REC.ANLOG 300 UNIT/3 ML INSULN.PEN SUBCUT SCH (21:28)
[2016-11-06] MEDS ORDERED: DILTIAZEM HCL 60 MG TABLET PO ONE (22:00)
[2016-11-07] MEDS: IPRATROPIUM/ALBUTEROL 0.5-2.5 MG/3 ML AMPUL NEB PRN (02:47)
[2016-11-07] MEDS: LANSOPRAZOLE 30 MG TAB.RAP.DR PO SCH (06:36)
[2016-11-07] MEDS ORDERED: INSULIN GLARGINE,HUM.REC.ANLOG 300 UNIT/3 ML INSULN.PEN SUBCUT SCH (08:24)
--- NOTE | 2016-11-07 08:25 | PDOC PROGRESS REPORT ---
Subjective Progress Note for:: 11/07/16 Subjective:: dyspnea & cough about the same. Voiding Physical Exam Vital Signs: Temp Pulse Resp BP Pulse Ox 97.4 F 115 H 19 151/83 H 97 11/07/16 07:47 11/07/16 07:47 11/07/16 07:47 11/07/16 07:47 11/07/16 07:47 Intake & Output 11/06/16 11/07/16 11/08/16 07:59 07:59 07:59 Intake Total 936 1396 Output Total 400 475 Balance 536 921 Weight 182 lb 15.739 oz 182 lb 15.739 oz General appearance: PRESENT: no acute distress Respiratory exam: PRESENT: clear to auscultation esme Cardiovascular exam: PRESENT: irregular rhythm. ABSENT: diastolic murmur, systolic murmur GI/Abdominal exam: PRESENT: tenderness. ABSENT: mass, organolmegaly Extremities exam: ABSENT: pedal edema Neurological exam: PRESENT: oriented to situation, abnormal gait - unsteady Psychiatric exam: PRESENT: appropriate affect Results Laboratory Results: 11/02/16 03:50 11/02/16 03:50 11/04/16 07:00 Bryan Catheter Urine Culture - Final Mrsa (Meth Resis Staph Aureus) Abnormal - 24 hr 11/06/16 11/06/16 11/07/16 11:55 21:16 05:48 POC Glucose 132 H 111 H 46 L 11/07/16 06:29 POC Glucose 68 L Impressions: Chest X-Ray 11/01/16 12:14 IMPRESSION: 1. Cardiomegaly with pulmonary vascular congestion but no florid CHF. 2. A left lower lobe pneumonia cannot be ruled out. Head CT 11/01/16 12:14 IMPRESSION: There are involutional changes of aging with chronic microvascular ischemic disease and no acute intracranial pathology. Chest/Abdomen CTA 11/02/16 00:00 IMPRESSION: No pulmonary emboli. Extensive left lower lobe pneumonia with air bronchograms. Stable right upper lobe scar/ mass. Extensive bony lesions in the ribs appear to be stable. There is an increasing compression fracture of the T2 vertebral body. Assessment & Plan - Diagnosis (1) Atrial fibrillation with RVR Is this a current diagnosis for this admission?: YesPlan: had to increase diltiazem to 240qd inspite of amiodarone loading d4 (2) Benign prostatic hyperplasia Qualifiers: Lower urinary tract symptom detail: urinary retention Is this a current diagnosis for this admission?: Yes (3) Hypoxia Is this a current diagnosis for this admission?: Yes (4) Ataxia Is this a current diagnosis for this admission?: YesPlan: gets PT qod. Nurses to walk between (5) Bacterial lobar pneumonia Is this a current diagnosis for this admission?: YesPlan: switch ceftri to zosyn for slow improvement (6) UTI (urinary tract infection) Qualifiers: Urinary tract infection type: catheter-associated UTI Indwelling urinary catheter type: indwelling urethral catheter Encounter type: initial encounter Qualified Code(s): T83.511A - Infection and inflammatory reaction due to indwelling urethral catheter, initial encounter; N39.0 - Urinary tract infection, site not specified Is this a current diagnosis for this admission?: YesPlan: 10k mrsa. Started vanc yesterday. (7) Type 2 diabetes mellitus without complications Qualifiers: Diabetes mellitus watermaster insulin use: with residential use Qualified Code(s): E11.9 - Type 2 diabetes mellitus without complications; Z79.4 - joint terminal attack controller (current) use of insulin Is this a current diagnosis for this admission?: YesPlan: decrease lantus - Inpatient Certification Medical Necessity: Significant Comorbidiites Make Outpatient Treatment Too Risky , Need For Continuous Telemetry Monitoring, Need for IV Antibiotics
[2016-11-07] MEDS: VANCOMYCIN HCL 1,500 MG in DEXTROSE 5%-WATER 250 ML IV SCH ×2 (08:42→22:32)
[2016-11-07] MEDS: ENOXAPARIN SODIUM INJ 40 MG/0.4 ML DISP.SYRIN SUBCUT SCH (10:46)
[2016-11-07] MEDS: LACTULOSE SYRUP 20 GM/30 ML UDCUP PO SCH (10:49)
[2016-11-07] MEDS: TAMSULOSIN HCL 0.4 MG CAP.SR.24H PO SCH (10:49)
[2016-11-07] MEDS: FINASTERIDE 5 MG TABLET PO SCH (10:49)
[2016-11-07] MEDS: FENOFIBRATE NANOCRYSTALLIZED 145 MG TABLET PO SCH (10:50)
[2016-11-07] MEDS: LISINOPRIL 10 MG TABLET PO SCH (10:50)
[2016-11-07] MEDS: AMIODARONE HCL 200 MG TABLET PO SCH ×2 (10:50→22:32)
[2016-11-07] MEDS: DILTIAZEM HCL 240 MG CAPSULE.CR PO SCH (10:50)
[2016-11-07] MEDS: LUBIPROSTONE 24 MCG CAPSULE PO SCH ×2 (10:51→17:18)
[2016-11-07] MEDS: FLUTICASONE/SALMETEROL DISKUS 100-50 MCG/DOSE IH SCH ×2 (10:51→22:39)
[2016-11-07] MEDS: PIPERACILLIN SODIUM/TAZOBACTAM 4.5 GM in NORMAL SALINE 100 ML IV SCH ×2 (12:40→17:18)
[2016-11-08] MEDS: PIPERACILLIN SODIUM/TAZOBACTAM 4.5 GM in NORMAL SALINE 100 ML IV SCH ×4 (01:57→21:10)
[2016-11-08] MEDS: LANSOPRAZOLE 30 MG TAB.RAP.DR PO SCH (05:47)
--- NOTE | 2016-11-08 08:14 | PDOC PROGRESS REPORT ---
Subjective Progress Note for:: 11/08/16 Subjective:: not hungry for cold food but orders it. Cough same. No palpitations. Voiding. Physical Exam Vital Signs: Temp Pulse Resp BP Pulse Ox 97.9 F 94 20 98/74 L 99 11/08/16 03:48 11/08/16 07:00 11/08/16 03:48 11/08/16 03:48 11/08/16 03:48 Intake & Output 11/07/16 11/08/16 11/09/16 07:59 07:59 07:59 Intake Total 1396 1690 Output Total 475 1400 Balance 921 290 Weight 182 lb 15.739 oz 181 lb 10.574 oz General appearance: PRESENT: no acute distress Respiratory exam: PRESENT: clear to auscultation esme Cardiovascular exam: PRESENT: irregular rhythm. ABSENT: diastolic murmur, systolic murmur GI/Abdominal exam: ABSENT: mass, organolmegaly, tenderness Extremities exam: ABSENT: pedal edema Results Laboratory Results: 11/02/16 03:50 11/02/16 03:50 Abnormal - 24 hr 11/07/16 11/08/16 22:27 06:23 POC Glucose 132 H 61 L Impressions: Chest X-Ray 11/01/16 12:14 IMPRESSION: 1. Cardiomegaly with pulmonary vascular congestion but no florid CHF. 2. A left lower lobe pneumonia cannot be ruled out. Head CT 11/01/16 12:14 IMPRESSION: There are involutional changes of aging with chronic microvascular ischemic disease and no acute intracranial pathology. Chest/Abdomen CTA 11/02/16 00:00 IMPRESSION: No pulmonary emboli. Extensive left lower lobe pneumonia with air bronchograms. Stable right upper lobe scar/ mass. Extensive bony lesions in the ribs appear to be stable. There is an increasing compression fracture of the T2 vertebral body. Assessment & Plan - Diagnosis (1) Atrial fibrillation with RVR Is this a current diagnosis for this admission?: YesPlan: load 2 more days (2) Benign prostatic hyperplasia Qualifiers: Lower urinary tract symptom detail: urinary retention Is this a current diagnosis for this admission?: Yes (3) Hypoxia Is this a current diagnosis for this admission?: Yes (4) Ataxia Is this a current diagnosis for this admission?: YesPlan: PT walkered 100'. PT suggests rehab. (5) Bacterial lobar pneumonia Is this a current diagnosis for this admission?: YesPlan: continue zosyn & vanc (6) UTI (urinary tract infection) Qualifiers: Urinary tract infection type: catheter-associated UTI Indwelling urinary catheter type: indwelling urethral catheter Encounter type: initial encounter Qualified Code(s): T83.511A - Infection and inflammatory reaction due to indwelling urethral catheter, initial encounter; N39.0 - Urinary tract infection, site not specified Is this a current diagnosis for this admission?: Yes (7) Type 2 diabetes mellitus without complications Qualifiers: Diabetes mellitus long term care phlebotomist insulin use: with correction use Qualified Code(s): E11.9 - Type 2 diabetes mellitus without complications Is this a current diagnosis for this admission?: YesPlan: fbs still low. Decrease [id number] - Inpatient Certification Based on my medical assessment, after consideration of the patient's comorbidities, presenting symptoms, or acuity I expect that the services needed warrant INPATIENT care.: Yes I certify that my determination is in accordance with my understanding of Medicare's requirements for reasonable and necessary INPATIENT services [42 CFR 412.3e].: Yes Medical Necessity: Failure to Improve With Outpatient Therapy, Significant Comorbidiites Make Outpatient Treatment Too Risky, Need Close Monitoring Due to Risk of Patient Decompensation, Need For Continuous Telemetry Monitoring, Need for IV Antibiotics, Risk of Complication if Not Cared For in Hospital
[2016-11-08] MEDS: LACTULOSE SYRUP 20 GM/30 ML UDCUP PO SCH (10:31)
[2016-11-08] MEDS: LISINOPRIL 10 MG TABLET PO SCH (10:46)
[2016-11-08] MEDS: TAMSULOSIN HCL 0.4 MG CAP.SR.24H PO SCH (10:46)
[2016-11-08] MEDS: DILTIAZEM HCL 240 MG CAPSULE.CR PO SCH (10:46)
[2016-11-08] MEDS: FINASTERIDE 5 MG TABLET PO SCH (10:46)
[2016-11-08] MEDS: LUBIPROSTONE 24 MCG CAPSULE PO SCH ×2 (10:46→18:15)
[2016-11-08] MEDS: AMIODARONE HCL 200 MG TABLET PO SCH ×2 (10:46→21:09)
[2016-11-08] MEDS: FENOFIBRATE NANOCRYSTALLIZED 145 MG TABLET PO SCH (10:46)
[2016-11-08] MEDS: ENOXAPARIN SODIUM INJ 40 MG/0.4 ML DISP.SYRIN SUBCUT SCH (10:46)
[2016-11-08] MEDS ORDERED: VANCOMYCIN HCL 1,500 MG in DEXTROSE 5%-WATER 250 ML IV SCH (11:00)
[2016-11-08] MEDS: FLUTICASONE/SALMETEROL DISKUS 100-50 MCG/DOSE IH SCH ×2 (16:12→21:10)
[2016-11-08] MEDS: VANCOMYCIN HCL 1,000 MG in DEXTROSE 5%-WATER 250 ML IV SCH (18:15)
[2016-11-08] MEDS: INSULIN GLARGINE,HUM.REC.ANLOG 300 UNIT/3 ML INSULN.PEN SUBCUT SCH (21:08)
[2016-11-08] MEDS: INSULIN LISPRO 100 UNIT/ML 3 ML VIAL SUBCUT PRN (21:08)
[2016-11-09] MEDS: VANCOMYCIN HCL 1,000 MG in DEXTROSE 5%-WATER 250 ML IV SCH ×3 (02:05→18:03)
[2016-11-09] MEDS: PIPERACILLIN SODIUM/TAZOBACTAM 4.5 GM in NORMAL SALINE 100 ML IV SCH ×4 (04:02→22:02)
[2016-11-09] MEDS: LANSOPRAZOLE 30 MG TAB.RAP.DR PO SCH (05:52)
--- NOTE | 2016-11-09 06:57 | PDOC PROGRESS REPORT ---
Subjective Progress Note for:: 11/09/16 Subjective:: less cough. Voiding. Physical Exam Vital Signs: Temp Pulse Resp BP Pulse Ox 97.7 F 80 20 130/70 H 98 11/08/16 23:59 11/09/16 02:00 11/08/16 23:59 11/08/16 23:59 11/08/16 23:59 Intake & Output 11/07/16 11/08/16 11/09/16 07:59 07:59 07:59 Intake Total 1396 1690 3115 Output Total 475 1400 2000 Balance 136 646 9702 Weight 182 lb 15.739 oz 181 lb 10.574 oz 182 lb 5.156 oz General appearance: PRESENT: no acute distress Respiratory exam: PRESENT: clear to auscultation esme Cardiovascular exam: PRESENT: irregular rhythm. ABSENT: diastolic murmur, systolic murmur GI/Abdominal exam: ABSENT: mass, organolmegaly, tenderness Extremities exam: ABSENT: pedal edema Neurological exam: PRESENT: oriented to situation Psychiatric exam: PRESENT: appropriate affect Results Laboratory Results: 11/02/16 03:50 11/02/16 03:50 Abnormal - 24 hr 11/08/16 11/08/16 16:33 20:57 POC Glucose 131 H 177 H Impressions: Chest X-Ray 11/01/16 12:14 IMPRESSION: 1. Cardiomegaly with pulmonary vascular congestion but no florid CHF. 2. A left lower lobe pneumonia cannot be ruled out. Head CT 11/01/16 12:14 IMPRESSION: There are involutional changes of aging with chronic microvascular ischemic disease and no acute intracranial pathology. Chest/Abdomen CTA 11/02/16 00:00 IMPRESSION: No pulmonary emboli. Extensive left lower lobe pneumonia with air bronchograms. Stable right upper lobe scar/ mass. Extensive bony lesions in the ribs appear to be stable. There is an increasing compression fracture of the T2 vertebral body. Assessment & Plan - Diagnosis (1) Bacterial lobar pneumonia Is this a current diagnosis for this admission?: YesPlan: continue vanc & zosyn (2) Atrial fibrillation with RVR Is this a current diagnosis for this admission?: YesPlan: no high rates yesterday. Load finishes today. (3) UTI (urinary tract infection) Qualifiers: Urinary tract infection type: catheter-associated UTI Indwelling urinary catheter type: indwelling urethral catheter Encounter type: initial encounter Qualified Code(s): T83.511A - Infection and inflammatory reaction due to indwelling urethral catheter, initial encounter; N39.0 - Urinary tract infection, site not specified Is this a current diagnosis for this admission?: YesPlan: continue vanc d3 (4) Benign prostatic hyperplasia Qualifiers: Lower urinary tract symptom detail: urinary retention Is this a current diagnosis for this admission?: Yes (5) Hypoxia Is this a current diagnosis for this admission?: Yes (6) Ataxia Is this a current diagnosis for this admission?: Yes (7) Type 2 diabetes mellitus without complications Qualifiers: Diabetes mellitus correction insulin use: with correction use Qualified Code(s): E11.9 - Type 2 diabetes mellitus without complications Is this a current diagnosis for this admission?: YesPlan: no lows. [id number]
[2016-11-09] MEDS: ENOXAPARIN SODIUM INJ 40 MG/0.4 ML DISP.SYRIN SUBCUT SCH (09:58)
[2016-11-09] MEDS: TAMSULOSIN HCL 0.4 MG CAP.SR.24H PO SCH (09:59)
[2016-11-09] MEDS: AMIODARONE HCL 200 MG TABLET PO SCH ×2 (09:59→22:04)
[2016-11-09] MEDS: DILTIAZEM HCL 240 MG CAPSULE.CR PO SCH (09:59)
[2016-11-09] MEDS: LUBIPROSTONE 24 MCG CAPSULE PO SCH ×2 (10:00→18:03)
[2016-11-09] MEDS: FENOFIBRATE NANOCRYSTALLIZED 145 MG TABLET PO SCH (10:01)
[2016-11-09] MEDS: LISINOPRIL 10 MG TABLET PO SCH (10:01)
[2016-11-09] MEDS: FINASTERIDE 5 MG TABLET PO SCH (10:01)
[2016-11-09] MEDS: LACTULOSE SYRUP 20 GM/30 ML UDCUP PO SCH (10:02)
[2016-11-09] MEDS: FLUTICASONE/SALMETEROL DISKUS 100-50 MCG/DOSE IH SCH ×2 (10:02→22:04)
[2016-11-09] MEDS: INSULIN LISPRO 100 UNIT/ML 3 ML VIAL SUBCUT PRN ×2 (16:47→22:03)
[2016-11-09] MEDS: INSULIN GLARGINE,HUM.REC.ANLOG 300 UNIT/3 ML INSULN.PEN SUBCUT SCH (22:04)
[2016-11-10] MEDS: VANCOMYCIN HCL 1,000 MG in DEXTROSE 5%-WATER 250 ML IV SCH ×3 (02:46→17:27)
[2016-11-10] MEDS: PIPERACILLIN SODIUM/TAZOBACTAM 4.5 GM in NORMAL SALINE 100 ML IV SCH ×4 (04:22→20:49)
[2016-11-10] MEDS: LANSOPRAZOLE 30 MG TAB.RAP.DR PO SCH (06:17)
--- NOTE | 2016-11-10 07:37 | PDOC PROGRESS REPORT ---
Subjective Progress Note for:: 11/10/16 Subjective:: eating, walking, voiding Physical Exam Vital Signs: Temp Pulse Resp BP Pulse Ox 97.6 F 100 20 139/88 H 100 11/10/16 04:23 11/10/16 04:23 11/10/16 04:23 11/10/16 04:23 11/10/16 04:23 Intake & Output 11/08/16 11/09/16 11/10/16 07:59 07:59 07:59 Intake Total 1690 3115 1970 Output Total 1400 2000 1750 Balance 290 1115 220 Weight 181 lb 10.574 oz 182 lb 5.156 oz 182 lb 12.211 oz General appearance: PRESENT: no acute distress Respiratory exam: PRESENT: clear to auscultation esme Cardiovascular exam: PRESENT: irregular rhythm. ABSENT: diastolic murmur, systolic murmur, tachycardia GI/Abdominal exam: ABSENT: mass, organolmegaly, tenderness Extremities exam: ABSENT: pedal edema Neurological exam: PRESENT: oriented to situation Psychiatric exam: PRESENT: appropriate affect Results Laboratory Results: 11/02/16 03:50 11/02/16 03:50 Abnormal - 24 hr 11/09/16 11/09/16 11/10/16 16:23 21:19 06:25 POC Glucose 170 H 172 H 64 L Impressions: Chest X-Ray 11/01/16 12:14 IMPRESSION: 1. Cardiomegaly with pulmonary vascular congestion but no florid CHF. 2. A left lower lobe pneumonia cannot be ruled out. Head CT 11/01/16 12:14 IMPRESSION: There are involutional changes of aging with chronic microvascular ischemic disease and no acute intracranial pathology. Chest/Abdomen CTA 11/02/16 00:00 IMPRESSION: No pulmonary emboli. Extensive left lower lobe pneumonia with air bronchograms. Stable right upper lobe scar/ mass. Extensive bony lesions in the ribs appear to be stable. There is an increasing compression fracture of the T2 vertebral body. Assessment & Plan - Diagnosis (1) Bacterial lobar pneumonia Is this a current diagnosis for this admission?: YesPlan: d4 zosyn. 3 more days (2) Atrial fibrillation with RVR Is this a current diagnosis for this admission?: YesPlan: pulse behaving. Stop diltiazem. Maintenance amiodarone 200qd (3) UTI (urinary tract infection) Qualifiers: Urinary tract infection type: catheter-associated UTI Indwelling urinary catheter type: indwelling urethral catheter Encounter type: initial encounter Qualified Code(s): T83.511A - Infection and inflammatory reaction due to indwelling urethral catheter, initial encounter; N39.0 - Urinary tract infection, site not specified Is this a current diagnosis for this admission?: YesPlan: vanc trough ok. (4) Benign prostatic hyperplasia Qualifiers: Lower urinary tract symptom detail: urinary retention Is this a current diagnosis for this admission?: Yes (5) Hypoxia Is this a current diagnosis for this admission?: Yes (6) Ataxia Is this a current diagnosis for this admission?: YesPlan: walked to bathroom but willing to rehab (7) Type 2 diabetes mellitus without complications Qualifiers: Diabetes mellitus nursing home insulin use: with sole layer use Qualified Code(s): E11.9 - Type 2 diabetes mellitus without complications Is this a current diagnosis for this admission?: Yes - Inpatient Certification Medical Necessity: Failure to Improve With Outpatient Therapy, Significant Comorbidiites Make Outpatient Treatment Too Risky, Need for IV Antibiotics, Risk of Complication if Not Cared For in Hospital
[2016-11-10] MEDS: LACTULOSE SYRUP 20 GM/30 ML UDCUP PO SCH (10:24)
[2016-11-10] MEDS: FINASTERIDE 5 MG TABLET PO SCH (10:25)
[2016-11-10] MEDS: TAMSULOSIN HCL 0.4 MG CAP.SR.24H PO SCH (10:25)
[2016-11-10] MEDS: LISINOPRIL 10 MG TABLET PO SCH (10:25)
[2016-11-10] MEDS: FENOFIBRATE NANOCRYSTALLIZED 145 MG TABLET PO SCH (10:25)
[2016-11-10] MEDS: ENOXAPARIN SODIUM INJ 40 MG/0.4 ML DISP.SYRIN SUBCUT SCH (10:26)
[2016-11-10] MEDS: AMIODARONE HCL 200 MG TABLET PO SCH (10:26)
[2016-11-10] MEDS: FLUTICASONE/SALMETEROL DISKUS 100-50 MCG/DOSE IH SCH ×2 (10:28→22:17)
[2016-11-10] MEDS: LUBIPROSTONE 24 MCG CAPSULE PO SCH ×2 (10:29→17:25)
[2016-11-10] MEDS: INSULIN GLARGINE,HUM.REC.ANLOG 300 UNIT/3 ML INSULN.PEN SUBCUT SCH (22:17)
[2016-11-11] MEDS: VANCOMYCIN HCL 1,000 MG in DEXTROSE 5%-WATER 250 ML IV SCH ×3 (02:39→17:44)
[2016-11-11] MEDS: PIPERACILLIN SODIUM/TAZOBACTAM 4.5 GM in NORMAL SALINE 100 ML IV SCH ×4 (04:12→22:00)
[2016-11-11] MEDS: LANSOPRAZOLE 30 MG TAB.RAP.DR PO SCH (05:35)
--- NOTE | 2016-11-11 07:56 | PDOC PROGRESS REPORT ---
Subjective Subjective:: less cough. Voiding. Physical Exam Vital Signs: Temp Pulse Resp BP Pulse Ox 97.7 F 94 20 154/98 H 99 11/11/16 04:06 11/11/16 04:06 11/11/16 04:06 11/11/16 04:06 11/11/16 04:06 Intake & Output 11/09/16 11/10/16 11/11/16 07:59 07:59 07:59 Intake Total 3115 2720 1704 Output Total 1999 1750 800 Balance 1115 970 904 Weight 182 lb 5.156 oz 182 lb 12.211 oz 180 lb 8.937 oz General appearance: PRESENT: no acute distress Respiratory exam: PRESENT: clear to auscultation esme Cardiovascular exam: PRESENT: irregular rhythm. ABSENT: diastolic murmur, systolic murmur GI/Abdominal exam: ABSENT: mass, organolmegaly, tenderness Extremities exam: ABSENT: pedal edema Neurological exam: PRESENT: oriented to situation Psychiatric exam: PRESENT: appropriate affect Results Laboratory Results: 11/02/16 03:50 11/02/16 03:50 Abnormal - 24 hr 11/10/16 11/10/16 11/10/16 11:10 16:08 21:23 POC Glucose 135 H 160 H 181 H Impressions: Chest X-Ray 11/01/16 12:14 IMPRESSION: 1. Cardiomegaly with pulmonary vascular congestion but no florid CHF. 2. A left lower lobe pneumonia cannot be ruled out. Head CT 11/01/16 12:14 IMPRESSION: There are involutional changes of aging with chronic microvascular ischemic disease and no acute intracranial pathology. Chest/Abdomen CTA 11/02/16 00:00 IMPRESSION: No pulmonary emboli. Extensive left lower lobe pneumonia with air bronchograms. Stable right upper lobe scar/ mass. Extensive bony lesions in the ribs appear to be stable. There is an increasing compression fracture of the T2 vertebral body. Assessment & Plan - Diagnosis (1) Bacterial lobar pneumonia Is this a current diagnosis for this admission?: YesPlan: d4 zosyn&vanc (2) Atrial fibrillation with RVR Is this a current diagnosis for this admission?: YesPlan: rate 82-115. Continue amiodarone (3) UTI (urinary tract infection) Qualifiers: Urinary tract infection type: catheter-associated UTI Indwelling urinary catheter type: indwelling urethral catheter Encounter type: initial encounter Qualified Code(s): T83.511A - Infection and inflammatory reaction due to indwelling urethral catheter, initial encounter; N39.0 - Urinary tract infection, site not specified Is this a current diagnosis for this admission?: YesPlan: continue vanc (4) Benign prostatic hyperplasia Qualifiers: Lower urinary tract symptom detail: urinary retention Is this a current diagnosis for this admission?: Yes (5) Hypoxia Is this a current diagnosis for this admission?: Yes (6) Ataxia Is this a current diagnosis for this admission?: YesPlan: he thinks he can walk but nurse says worn out & unsteady after bathroom. Needs rehab again. (7) Type 2 diabetes mellitus without complications Qualifiers: Diabetes mellitus residential insulin use: with intermediate frame tender use Qualified Code(s): E11.9 - Type 2 diabetes mellitus without complications Is this a current diagnosis for this admission?: Yes - Inpatient Certification Medical Necessity: Failure to Improve With Outpatient Therapy, Significant Comorbidiites Make Outpatient Treatment Too Risky, Need for IV Antibiotics, Risk of Complication if Not Cared For in Hospital
[2016-11-11] MEDS: ENOXAPARIN SODIUM INJ 40 MG/0.4 ML DISP.SYRIN SUBCUT SCH (10:44)
[2016-11-11] MEDS: TAMSULOSIN HCL 0.4 MG CAP.SR.24H PO SCH (10:47)
[2016-11-11] MEDS: FINASTERIDE 5 MG TABLET PO SCH (10:47)
[2016-11-11] MEDS: FENOFIBRATE NANOCRYSTALLIZED 145 MG TABLET PO SCH (10:47)
[2016-11-11] MEDS: AMIODARONE HCL 200 MG TABLET PO SCH (10:47)
[2016-11-11] MEDS: LISINOPRIL 10 MG TABLET PO SCH (10:48)
[2016-11-11] MEDS: LUBIPROSTONE 24 MCG CAPSULE PO SCH ×2 (10:48→17:43)
[2016-11-11 11:03] LABS: CREATININE RESULT 0.83 mg/dL (0.52-1.25)
[2016-11-11] MEDS: LACTULOSE SYRUP 20 GM/30 ML UDCUP PO SCH (11:05)
[2016-11-11] MEDS: FLUTICASONE/SALMETEROL DISKUS 100-50 MCG/DOSE IH SCH ×2 (13:02→22:01)
[2016-11-11] MEDS: INSULIN GLARGINE,HUM.REC.ANLOG 300 UNIT/3 ML INSULN.PEN SUBCUT SCH (22:02)
[2016-11-12] MEDS: VANCOMYCIN HCL 1,000 MG in DEXTROSE 5%-WATER 250 ML IV SCH ×3 (02:47→17:29)
[2016-11-12] MEDS: PIPERACILLIN SODIUM/TAZOBACTAM 4.5 GM in NORMAL SALINE 100 ML IV SCH ×4 (04:01→20:32)
[2016-11-12] MEDS: LANSOPRAZOLE 30 MG TAB.RAP.DR PO SCH (06:04)
--- NOTE | 2016-11-12 07:58 | PDOC PROGRESS REPORT ---
Subjective Progress Note for:: 11/12/16 Subjective:: walking more. Would rather go home than rehab. Physical Exam Vital Signs: Temp Pulse Resp BP Pulse Ox 97.7 F 89 20 149/96 H 96 11/12/16 04:27 11/12/16 04:27 11/12/16 04:27 11/12/16 04:27 11/12/16 04:27 Intake & Output 11/10/16 11/11/16 11/12/16 07:59 07:59 07:59 Intake Total 2720 2584 1350 Output Total 0824 724 7538 Balance 970 1784 -900 Weight 182 lb 12.211 oz 180 lb 8.937 oz 175 lb 14.862 oz General appearance: PRESENT: no acute distress Respiratory exam: PRESENT: clear to auscultation esme Cardiovascular exam: PRESENT: irregular rhythm. ABSENT: diastolic murmur, systolic murmur GI/Abdominal exam: ABSENT: mass, organolmegaly, tenderness Extremities exam: ABSENT: pedal edema Neurological exam: PRESENT: oriented to situation Psychiatric exam: PRESENT: appropriate affect Results Laboratory Results: 11/02/16 03:50 11/11/16 09:45 11/11/16 09:45 Creatinine 0.83 Est GFR ( Amer) > 60 Est GFR (Non-Af Amer) > 60 11/01/16 11/01/16 11/01/16 17:18 17:18 21:57 Creatine Kinase 24 L 24 L CK-MB (CK-2) 1.16 Troponin I 0.014 11/01/16 11/02/16 11/02/16 21:57 03:50 03:50 Creatine Kinase < 20 L CK-MB (CK-2) 0.96 0.71 Troponin I 0.015 0.013 Impressions: Chest X-Ray 11/01/16 12:14 IMPRESSION: 1. Cardiomegaly with pulmonary vascular congestion but no florid CHF. 2. A left lower lobe pneumonia cannot be ruled out. Head CT 11/01/16 12:14 IMPRESSION: There are involutional changes of aging with chronic microvascular ischemic disease and no acute intracranial pathology. Chest/Abdomen CTA 11/02/16 00:00 IMPRESSION: No pulmonary emboli. Extensive left lower lobe pneumonia with air bronchograms. Stable right upper lobe scar/ mass. Extensive bony lesions in the ribs appear to be stable. There is an increasing compression fracture of the T2 vertebral body. Assessment & Plan - Diagnosis (1) Bacterial lobar pneumonia Is this a current diagnosis for this admission?: YesPlan: d5 zosyn. 2 more days (2) Atrial fibrillation with RVR Is this a current diagnosis for this admission?: YesPlan: rate controlled (3) UTI (urinary tract infection) Qualifiers: Urinary tract infection type: catheter-associated UTI Indwelling urinary catheter type: indwelling urethral catheter Encounter type: initial encounter Qualified Code(s): T83.511A - Infection and inflammatory reaction due to indwelling urethral catheter, initial encounter; N39.0 - Urinary tract infection, site not specified Is this a current diagnosis for this admission?: YesPlan: continue vanc (4) Benign prostatic hyperplasia Qualifiers: Lower urinary tract symptom detail: urinary retention Is this a current diagnosis for this admission?: Yes (5) Hypoxia Is this a current diagnosis for this admission?: Yes (6) Ataxia Is this a current diagnosis for this admission?: YesPlan: home if improves walking enough (7) Type 2 diabetes mellitus without complications Qualifiers: Diabetes mellitus prison insulin use: with superintendent container terminal use Qualified Code(s): E11.9 - Type 2 diabetes mellitus without complications Is this a current diagnosis for this admission?: Yes - Inpatient Certification Medical Necessity: Need for IV Antibiotics
[2016-11-12] MEDS: LISINOPRIL 10 MG TABLET PO SCH (09:27)
[2016-11-12] MEDS: FENOFIBRATE NANOCRYSTALLIZED 145 MG TABLET PO SCH (09:28)
[2016-11-12] MEDS: LUBIPROSTONE 24 MCG CAPSULE PO SCH ×2 (09:28→20:32)
[2016-11-12] MEDS: FINASTERIDE 5 MG TABLET PO SCH (09:28)
[2016-11-12] MEDS: AMIODARONE HCL 200 MG TABLET PO SCH (09:28)
[2016-11-12] MEDS: TAMSULOSIN HCL 0.4 MG CAP.SR.24H PO SCH (09:28)
[2016-11-12] MEDS: FLUTICASONE/SALMETEROL DISKUS 100-50 MCG/DOSE IH SCH ×2 (09:29→21:37)
[2016-11-12] MEDS: ENOXAPARIN SODIUM INJ 40 MG/0.4 ML DISP.SYRIN SUBCUT SCH (09:29)
[2016-11-12] MEDS: LACTULOSE SYRUP 20 GM/30 ML UDCUP PO SCH (09:42)
[2016-11-12] MEDS: INSULIN GLARGINE,HUM.REC.ANLOG 300 UNIT/3 ML INSULN.PEN SUBCUT SCH (21:34)
[2016-11-13] MEDS: VANCOMYCIN HCL 1,000 MG in DEXTROSE 5%-WATER 250 ML IV SCH ×3 (01:10→17:15)
[2016-11-13] MEDS: PIPERACILLIN SODIUM/TAZOBACTAM 4.5 GM in NORMAL SALINE 100 ML IV SCH ×4 (03:46→21:15)
[2016-11-13] MEDS: LANSOPRAZOLE 30 MG TAB.RAP.DR PO SCH (06:17)
--- NOTE | 2016-11-13 07:51 | PDOC PROGRESS REPORT ---
Subjective Progress Note for:: 11/13/16 Subjective:: better. Walkered halls & bathroom. Physical Exam Vital Signs: Temp Pulse Resp BP Pulse Ox 97.6 F 90 16 150/89 H 100 11/13/16 03:15 11/13/16 03:15 11/13/16 03:15 11/13/16 03:15 11/13/16 03:15 Intake & Output 11/11/16 11/12/16 11/13/16 07:59 07:59 07:59 Intake Total 2584 1350 2644 Output Total 800 2250 3200 Balance 1784 900 -556 Weight 180 lb 8.937 oz 175 lb 14.862 oz 175 lb 14.862 oz General appearance: PRESENT: no acute distress Respiratory exam: PRESENT: clear to auscultation esme Cardiovascular exam: PRESENT: irregular rhythm. ABSENT: diastolic murmur, systolic murmur GI/Abdominal exam: ABSENT: mass, organolmegaly, tenderness Extremities exam: ABSENT: pedal edema Neurological exam: PRESENT: oriented to situation Psychiatric exam: PRESENT: appropriate affect Results Laboratory Results: 11/02/16 03:50 11/11/16 09:45 Abnormal - 24 hr 11/12/16 11/12/16 11/12/16 11:18 15:59 21:07 POC Glucose 151 H 148 H 221 H 11/13/16 06:23 POC Glucose 115 H Impressions: Chest X-Ray 11/01/16 12:14 IMPRESSION: 1. Cardiomegaly with pulmonary vascular congestion but no florid CHF. 2. A left lower lobe pneumonia cannot be ruled out. Head CT 11/01/16 12:14 IMPRESSION: There are involutional changes of aging with chronic microvascular ischemic disease and no acute intracranial pathology. Chest/Abdomen CTA 11/02/16 00:00 IMPRESSION: No pulmonary emboli. Extensive left lower lobe pneumonia with air bronchograms. Stable right upper lobe scar/ mass. Extensive bony lesions in the ribs appear to be stable. There is an increasing compression fracture of the T2 vertebral body. Assessment & Plan - Diagnosis (1) Bacterial lobar pneumonia Is this a current diagnosis for this admission?: YesPlan: day6 zosyn. Home after tomorrow's dose (2) Atrial fibrillation with RVR Is this a current diagnosis for this admission?: Yes (3) UTI (urinary tract infection) Qualifiers: Urinary tract infection type: catheter-associated UTI Indwelling urinary catheter type: indwelling urethral catheter Encounter type: initial encounter Qualified Code(s): T83.511A - Infection and inflammatory reaction due to indwelling urethral catheter, initial encounter; N39.0 - Urinary tract infection, site not specified Is this a current diagnosis for this admission?: YesPlan: vanc trough 18 (4) Benign prostatic hyperplasia Qualifiers: Lower urinary tract symptom detail: urinary retention Is this a current diagnosis for this admission?: Yes (5) Hypoxia Is this a current diagnosis for this admission?: Yes (6) Ataxia Is this a current diagnosis for this admission?: YesPlan: wants home not rehab. Off revlumid because of neuropathy. Has appointment with onc Dr Arriaga in 5d. (7) Type 2 diabetes mellitus without complications Qualifiers: Diabetes mellitus halfway insulin use: with petroleum terminal plant operator use Qualified Code(s): E11.9 - Type 2 diabetes mellitus without complications Is this a current diagnosis for this admission?: Yes
[2016-11-13] MEDS: AMIODARONE HCL 200 MG TABLET PO SCH (09:49)
[2016-11-13] MEDS: ENOXAPARIN SODIUM INJ 40 MG/0.4 ML DISP.SYRIN SUBCUT SCH (09:49)
[2016-11-13] MEDS: FENOFIBRATE NANOCRYSTALLIZED 145 MG TABLET PO SCH (09:50)
[2016-11-13] MEDS: LISINOPRIL 10 MG TABLET PO SCH (09:51)
[2016-11-13] MEDS: FINASTERIDE 5 MG TABLET PO SCH (09:51)
[2016-11-13] MEDS: TAMSULOSIN HCL 0.4 MG CAP.SR.24H PO SCH (09:52)
[2016-11-13] MEDS: FLUTICASONE/SALMETEROL DISKUS 100-50 MCG/DOSE IH SCH ×2 (09:56→21:15)
[2016-11-13] MEDS: LACTULOSE SYRUP 20 GM/30 ML UDCUP PO SCH (10:01)
[2016-11-13] MEDS: LUBIPROSTONE 24 MCG CAPSULE PO SCH ×2 (10:57→17:15)
[2016-11-13] MEDS ORDERED: DILTIAZEM HCL 240 MG CAPSULE.CR PO SCH (21:00)
[2016-11-13] MEDS: INSULIN LISPRO 100 UNIT/ML 3 ML VIAL SUBCUT PRN (22:31)
[2016-11-13] MEDS: INSULIN GLARGINE,HUM.REC.ANLOG 300 UNIT/3 ML INSULN.PEN SUBCUT SCH (22:31)
[2016-11-14] MEDS: VANCOMYCIN HCL 1,000 MG in DEXTROSE 5%-WATER 250 ML IV SCH ×2 (02:32→08:45)
[2016-11-14] MEDS: PIPERACILLIN SODIUM/TAZOBACTAM 4.5 GM in NORMAL SALINE 100 ML IV SCH ×2 (04:15→07:45)
[2016-11-14] MEDS: LANSOPRAZOLE 30 MG TAB.RAP.DR PO SCH (05:05)
--- NOTE | 2016-11-14 08:25 | PDOC DISCHARGE SUMMARY ---
General - Admit/Disc Date/PCP Admission Date/Primary Care Provider: 11/01/16 16:03 JUAN R KHAN MD Discharge Date: 11/14/16 - Discharge Diagnosis (1) Bacterial lobar pneumonia Is this a current diagnosis for this admission?: Yes (2) Atrial fibrillation with RVR Is this a current diagnosis for this admission?: Yes (3) UTI (urinary tract infection) Is this a current diagnosis for this admission?: Yes (4) Benign prostatic hyperplasia Is this a current diagnosis for this admission?: Yes (5) Hypoxia Is this a current diagnosis for this admission?: Yes (6) Ataxia Is this a current diagnosis for this admission?: Yes (7) Type 2 diabetes mellitus without complications Is this a current diagnosis for this admission?: Yes - Additional Information Resuscitation Status: Full Code Discharge Diet: Diabetic Discharge Activity: Activity As Tolerated Home Medications: Alfuzosin HCl [Uroxatral] 10 mg PO DAILY 11/01/16 Diltiazem HCl [Diltiazem 24Hr ER] 240 mg PO DAILY 11/01/16 Esomeprazole Mag Trihydrate [Nexium] 40 mg PO DAILY 11/01/16 Fenofibrate 160 mg PO DAILY 11/01/16 Fluticasone/Salmeterol [Advair 100-50 Diskus 28 Dose] 1 puff IH BID 11/01/16 Lactulose 20 gm PO DAILY 11/01/16 Lisinopril [Prinivil 40 mg Tablet] 40 mg PO DAILY 11/01/16 Metformin HCl [Metformin HCl ER] 2,000 mg PO WSUPPER 11/01/16 Amiodarone HCl [Cordarone 200 mg Tablet] 200 mg PO DAILY #90 tablet 11/14/16 Finasteride [Proscar 5 mg Tablet] 5 mg PO DAILY #90 tablet 11/14/16 Insulin Aspart [Novolog Flexpen] 5 units SUBCUT MEALS #15 ml 11/14/16 Insulin Glargine,Hum.rec.anlog [Lantus Solostar] 15 units SUBCUT QHS #15 ml 10/26 History of Present Illness Patient complains of: weakness fall History of Present Illness: LESTER DELONG is a 71 year old male with fast afib again inspite of [id number]. Hospital Course Hospital Course: Dyspnea and tachypnea turned out to be LLL pneumonia on cta. Ceftriaxone didnt help and was switched to zosyn. He had urinary retention again and required ballard. Finasteride was added. Passed voiding trial but grew MRSA. He has had a week of vanc & zosyn. Amiodarone was loaded and maintained at 200mg qd. Last night rate was back up to 170. Diltiazem was resumed. He walkered halls and declined rehab. 1 month ago I stopped revlumid because of neuropathy and ataxia. Physical Exam Vital Signs: Temp Pulse Resp BP Pulse Ox 97.9 F 87 24 H 132/115 H 99 11/14/16 04:05 11/14/16 07:00 11/14/16 04:05 11/14/16 04:05 11/14/16 04:05 Intake & Output 11/12/16 11/13/16 11/14/16 07:59 07:59 07:59 Intake Total 1350 2644 3087 Output Total 2250 3200 1900 Balance -900 -556 1187 Weight 175 lb 14.862 oz 175 lb 14.862 oz 172 lb 2.896 oz General appearance: PRESENT: no acute distress Respiratory exam: PRESENT: clear to auscultation esme Cardiovascular exam: PRESENT: irregular rhythm. ABSENT: diastolic murmur, systolic murmur GI/Abdominal exam: ABSENT: mass, organolmegaly, tenderness Extremities exam: ABSENT: pedal edema Neurological exam: PRESENT: oriented to situation Psychiatric exam: PRESENT: appropriate affect Results Laboratory Results: 11/02/16 03:50 11/11/16 09:45 Labs- Last Values WBC 8.2 10^3/uL (4.0-10.5) 11/02/16 03:50 RBC 4.13 10^6/uL (4.35-5.55) L 11/02/16 03:50 Hgb 13.1 g/dL (13.5-17.0) L 11/02/16 03:50 Hct 41.1 % (37.9-51.0) 11/02/16 03:50 MCV 100 fl (80-97) H 11/02/16 03:50 MCH 31.8 pg (27.0-33.4) 11/02/16 03:50 MCHC 31.9 g/dL (32.0-36.0) L 11/02/16 03:50 RDW 18.6 % (11.5-14.0) H 11/02/16 03:50 Plt Count 271 10^3/uL (150-450) 11/02/16 03:50 Total Counted 100 11/02/16 03:50 Seg Neutrophils % Not Reportable 11/02/16 03:50 Seg Neuts % (Manual) 90 % (42-78) H 11/02/16 03:50 Band Neutrophils % 3 % (3-5) 11/02/16 03:50 Lymphocytes % Not Reportable 11/02/16 03:50 Lymphocytes % (Manual) 1 % (13-45) L 11/02/16 03:50 Atypical Lymphs % 2 % (0) 11/01/16 12:00 Monocytes % Not Reportable 11/02/16 03:50 Monocytes % (Manual) 6 % (3-13) 11/02/16 03:50 Eosinophils % Not Reportable 11/02/16 03:50 Eosinophils % (Manual) 0 % (0-6) 11/02/16 03:50 Basophils % Not Reportable 11/02/16 03:50 Basophils % (Manual) 0 % (0-2) 11/02/16 03:50 Metamyelocytes % 1 % (0) H 11/01/16 12:00 Absolute Neutrophils Not Reportable 11/02/16 03:50 Abs Neuts (Manual) 7.6 10^3/uL (1.7-8.2) 11/02/16 03:50 Absolute Lymphocytes Not Reportable 11/02/16 03:50 Abs Lymphs (Manual) 0.1 10^3/uL (0.5-4.7) L 11/02/16 03:50 Absolute Monocytes Not Reportable 11/02/16 03:50 Abs Monocytes (Manual) 0.5 10^3/uL (0.1-1.4) 11/02/16 03:50 Absolute Eosinophils Not Reportable 11/02/16 03:50 Absolute Eos (Manual) 0.0 10^3/uL (0.0-0.6) 11/02/16 03:50 Absolute Basophils Not Reportable 11/02/16 03:50 Abs Basophils (Manual) 0.0 10^3/uL (0.0-0.2) 11/02/16 03:50 Nucleated RBCs 5 /100 WBC (0) 11/02/16 03:50 Toxic Granulation 1+ 11/02/16 03:50 Platelet Comment ADEQUATE 11/02/16 03:50 Polychromasia SLIGHT 11/01/16 12:00 Poikilocytosis 1+ 11/02/16 03:50 Anisocytosis 2+ 11/02/16 03:50 Macrocytosis SLIGHT 11/02/16 03:50 Target Cells 1+ 11/01/16 12:00 Ovalocytes 1+ 11/02/16 03:50 Gaona-Donnelly Bodies PRESENT 11/01/16 12:00 Tim[place]lake Cells 2+ 11/01/16 12:00 Acanthocytes (Spur) 1+ 11/02/16 03:50 Rouleaux 1+ 11/01/16 12:00 Schistocytes 1+ 11/01/16 12:00 PT 19.2 SEC (11.4-15.4) H 11/01/16 12:00 INR 1.52 11/01/16 12:00 D-Dimer 0.67 ug/mL (0.00-0.50) H 11/02/16 19:25 Carbonic Acid 0.98 mmol/L (1.05-1.35) L 11/01/16 22:45 HCO3/H2CO3 Ratio 24:1 11/01/16 22:45 ABG pH 7.49 (7.35-7.45) H 11/01/16 22:45 ABG pCO2 32.7 mmHg (35-45) L 11/01/16 22:45 ABG pO2 81.4 mmHg (80-100) 11/01/16 22:45 ABG HCO3 24.2 mmol/L (20-26) 11/01/16 22:45 ABG Total CO2 25.2 mmol/L (23-27) 11/01/16 22:45 ABG O2 Saturation 96.8 % (94-98) 11/01/16 22:45 ABG Base Excess 1.4 mmol/L 11/01/16 22:45 FiO2 3 LITERS 11/01/16 22:45 Sodium 139.1 mmol/L (137-145) 11/02/16 03:50 Potassium 4.2 mmol/L (3.6-5.0) 11/02/16 03:50 Chloride 105 mmol/L (98-107) 11/02/16 03:50 Carbon Dioxide 22 mmol/L (22-30) 11/02/16 03:50 Anion Gap 12 (5-19) 11/02/16 03:50 BUN 21 mg/dL (7-20) H 11/02/16 03:50 Creatinine 0.83 mg/dL (0.52-1.25) 11/11/16 09:45 Est GFR ( Amer) > 60 (>60) 11/11/16 09:45 Est GFR (Non-Af Amer) > 60 (>60) 11/11/16 09:45 Glucose 119 mg/dL (75-110) H 11/02/16 03:50 POC Glucose 89 mg/dL (70-110) 11/14/16 06:22 Calcium 8.4 mg/dL (8.4-10.2) 11/02/16 03:50 Magnesium 1.9 mg/dL (1.6-2.3) 11/02/16 03:50 Total Bilirubin 1.2 mg/dL (0.2-1.3) 11/01/16 12:00 Direct Bilirubin 0.9 mg/dL (0.0-0.4) H 11/01/16 12:00 Indirect Bilirubin Not Reportable 11/01/16 12:00 Neonat Total Bilirubin Not Reportable 11/01/16 12:00 AST 16 U/L (17-59) L 11/01/16 12:00 ALT 36 U/L (21-72) 11/01/16 12:00 Alkaline Phosphatase 161 U/L (38-126) H 11/01/16 12:00 Ammonia < 8.7 umol/L (9-33) L 11/01/16 12:50 Creatine Kinase < 20 U/L (55-170) L 11/02/16 03:50 CK-MB (CK-2) 0.71 ng/mL (<4.55) 11/02/16 03:50 Troponin I 0.013 ng/mL 11/02/16 03:50 Total Protein 5.0 g/dL (6.3-8.2) L 11/01/16 12:00 Albumin 2.7 g/dL (3.5-5.0) L 11/01/16 12:00 Prostate Specific Ag 0.480 ng/mL (<4.00) 11/02/16 03:50 Time Trough Drawn 0945 11/11/16 09:45 Vancomycin Trough 18.3 ug/mL (5.0-20.0) 11/11/16 09:45 Digoxin 0.74 ng/mL (0.8-2.0) L 11/01/16 12:00 Impressions: Chest X-Ray 11/01/16 12:14 IMPRESSION: 1. Cardiomegaly with pulmonary vascular congestion but no florid CHF. 2. A left lower lobe pneumonia cannot be ruled out. Head CT 11/01/16 12:14 IMPRESSION: There are involutional changes of aging with chronic microvascular ischemic disease and no acute intracranial pathology. Chest/Abdomen CTA 11/02/16 00:00 IMPRESSION: No pulmonary emboli. Extensive left lower lobe pneumonia with air bronchograms. Stable right upper lobe scar/ mass. Extensive bony lesions in the ribs appear to be stable. There is an increasing compression fracture of the T2 vertebral body. Qualifiers PATEINT BEING DISCHARGED WITH ANY OF THE FOLLOWING DIAGNOSIS?: No Plan Discharge Plan: home. 1w ov me. 4d ov Dr Arriaga
[2016-11-14] MEDS: FENOFIBRATE NANOCRYSTALLIZED 145 MG TABLET PO SCH (09:33)
[2016-11-14] MEDS: AMIODARONE HCL 200 MG TABLET PO SCH (09:33)
[2016-11-14] MEDS: FLUTICASONE/SALMETEROL DISKUS 100-50 MCG/DOSE IH SCH (09:34)
[2016-11-14] MEDS: FINASTERIDE 5 MG TABLET PO SCH (09:34)
[2016-11-14] MEDS: LISINOPRIL 10 MG TABLET PO SCH (09:35)
[2016-11-14] MEDS: TAMSULOSIN HCL 0.4 MG CAP.SR.24H PO SCH (09:35)
[2016-11-14] MEDS: LACTULOSE SYRUP 20 GM/30 ML UDCUP PO SCH (09:37)
[2016-11-14] MEDS: LUBIPROSTONE 24 MCG CAPSULE PO SCH (09:37)
[2016-11-14] MEDS: ENOXAPARIN SODIUM INJ 40 MG/0.4 ML DISP.SYRIN SUBCUT SCH (09:37)
[2016-11-14 10:07] VITALS: BP 142/83
== END 2016-11-14 11:52 | disposition home or self-care (01) | DRG 194 ==
LOC: ER 11:50 → UNDOADMIN 15:46 → EH 15:46 → 3W 19:43
PROVIDERS: ADMIT Internal Medicine; ATTEND Internal Medicine
DX: J15.9 Unspecified bacterial pneumonia (principal); C90.00 Multiple myeloma not having achieved remission; N39.0 Urinary tract infection, site not specified; T83.511A Infection and inflammatory reaction due to indwelling urethral catheter, initial encounter; I48.2 Chronic atrial fibrillation; E11.9 Type 2 diabetes mellitus without complications; E78.5 Hyperlipidemia, unspecified; G62.9 Polyneuropathy, unspecified; I10 Essential (primary) hypertension; K21.9 Gastro-esophageal reflux disease without esophagitis; N40.0 Benign prostatic hyperplasia without lower urinary tract symptoms; R09.02 Hypoxemia; R27.0 Ataxia, unspecified; R53.1 Weakness; Z60.2 Problems related to living alone; Z79.84 Long term (current) use of oral hypoglycemic drugs; Z79.4 Long term (current) use of insulin; Z79.51 Long term (current) use of inhaled steroids; Z79.899 Other long term (current) drug therapy; Z22.322 Carrier or suspected carrier of Methicillin resistant Staphylococcus aureus
CPT/HCPCS: 36415; 36600; 70450; 71010; 71275; 80048; 80053; 80162; 80202; 82140; 82550; 82553; 82565; 82803; 82962; 83036; 83735; 84484; 85025; 85379; 85610; 87086; 87088; 87186; 93005; 93010; 94640; 96365; 96366; 96375; 99291; G0103; G8978-GP; G8979-GP; J0696; J1160; J1650; J1815; J1940; J2543; J3370; J3490; J7060; J7620

== ENCOUNTER 2016-11-25 11:50 | Inpatient (IN) | payer MEDICARE, OTHER ==
[2016-11-25] MEDS ORDERED: DIPH/PERTUSS(ACELL)/TETANUS VAC/PF 0.5 ML SYR (>=10YO) IM ONE (12:16)
--- NOTE | 2016-11-25 12:19 | ER Document Report ---
ED Blood Sugar Problem - General Chief Complaint: Low Blood Sugar Stated Complaint: SYNCOPE Time Seen by Provider: 11/25/16 12:08 Mode of Arrival: Medic Information source: Patient, Emergency Med Personnel TRAVEL OUTSIDE OF THE [place] IN LAST 30 DAYS: No - HPI Patient complains to provider of: syncope, low blood sugar, left arm and left rib pain from fall Onset: Just prior to arrival Onset/Duration: Sudden Quality of pain: Achy Severity: Mild Pain Level: 1 Insulin taken: Yes Associated symptoms: Loss of consciousness Notes: Patient is a 71-year-old male with a history of multiple myeloma, A. fib, hypertension, diabetes, hyperlipidemia, who was brought to the emergency room by EMS after syncope and fall in parking lot at oncologist's office, patient reports he took 5 of insulin this morning and he did not eat anything prior to going to his oncologist office for an appointment, he reports some pain in his left elbow with small abrasion, and pain in his left ribs from a fall he sustained when he passed out from his low blood sugar, EMS did administer 250 mL 's of D5 in route in patient's most recent low blood sugar was 135, he denies a headache, no nausea or vomiting, he denies any back pain, no chest pain or shortness of breath - Related Data Allergies/Adverse Reactions: No Known Allergies Allergy (Verified 03/04/13 08:41) Past Medical History - General Information source: Patient - Social History Smoking Status: Unknown if Ever Smoked Family History: CAD, Malignancy - Past Medical History Cardiac Medical History: Reports: Hx Atrial Fibrillation, Hx DVT, Hx Hypercholesterolemia, Hx Hypertension - meds x yrs Denies: Hx Coronary Artery Disease, Hx Heart Attack Pulmonary Medical History: Denies: Hx Asthma, Hx Bronchitis, Hx COPD, Hx Pneumonia, Hx Tuberculosis Neurological Medical History: Denies: Hx Cerebrovascular Accident, Hx Seizures Endocrine Medical History: Reports: Hx Diabetes Mellitus Type 2 GI Medical History: Denies: Hx Hepatitis, Hx Hiatal Hernia, Hx Ulcer Musculoskeltal Medical History: Reports Hx Arthritis - B/L hands Psychiatric Medical History: Reports: Hx Dementia - Mild Denies: Hx Depression Infectious Medical History: Denies: Hx Hepatitis Past Surgical History: Reports: Hx Orthopedic Surgery - left acromion orif, left elbow repair, Other - 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 Denies: Hx Open Heart Surgery, Hx Pacemaker - Immunizations Hx Diphtheria, Pertussis, Tetanus Vaccination: - "unknown" Hx Pneumococcal Vaccination: 05/12/09 Review of Systems - Review of Systems Constitutional: No symptoms reported EENT: No symptoms reported Cardiovascular: Syncope Respiratory: No symptoms reported Gastrointestinal: No symptoms reported Genitourinary: No symptoms reported Male Genitourinary: No symptoms reported Musculoskeletal: See HPI Skin: No symptoms reported Hematologic/Lymphatic: No symptoms reported Neurological/Psychological: No symptoms reported -: Yes All other systems reviewed and negative Physical Exam - Vital signs Vitals: Resp Pulse Ox 21 H 97 11/25/16 12:04 11/25/16 12:04 Interpretation: Normal - General General appearance: Appears well, Alert - HEENT Head: Normocephalic, Atraumatic Eyes: Normal Pupils: PERRL - Respiratory Respiratory status: No respiratory distress Chest status: Tender - To palpate in left lateral lower ribs Breath sounds: Normal Chest palpation: Normal - Cardiovascular Rhythm: Regular Heart sounds: Normal auscultation Murmur: No - Abdominal Inspection: Normal Distension: No distension Bowel sounds: Normal Tenderness: Nontender Organomegaly: No organomegaly - Back Back: Normal, Nontender - Extremities General upper extremity: Normal ROM, Normal temperature General lower extremity: Normal inspection, Nontender, Normal color, Normal ROM , Normal temperature, Normal weight bearing. No: Cecil's sign Forearm: Other - Abrasion to left forearm, lateral surface, no active bleeding, distal sensation and motor is intact with 2+ radial pulses - Neurological Neuro grossly intact: Yes Cognition: Normal Orientation: AAOx4 Nicholas Coma Scale Eye Opening: Spontaneous Nicholas Coma Scale Verbal: Oriented [place] Coma Scale Motor: Obeys Commands [place] Coma Scale Total: 15 Speech: Normal Motor strength normal: LUE, RUE, LLE, RLE Sensory: Normal - Psychological Associated symptoms: Normal affect, Normal mood - Skin Skin Temperature: Warm Skin Moisture: Dry Skin Color: Normal Course - Re-evaluation Re-evalutation: 11/25/16 13:41 Patient with rib fractures on the left from his fall, also noted to be in acute renal failure with no history of similar in the past, patient was discussed with his primary care provider who agrees to admit for further evaluation and treatment, this plan was discussed with patient as well who is in agreement - Vital Signs Vital signs: Temp Pulse Resp BP Pulse Ox 21 H 97 11/25/16 12:04 11/25/16 12:04 - Laboratory Result Diagrams: 11/25/16 12:30 11/25/16 12:00 Laboratory results interpreted by me: 11/25/16 11/25/16 12:00 12:30 RBC 3.80 L Hgb 12.2 L Hct 36.5 L RDW 20.4 H Seg Neuts % (Manual) 94 H Band Neutrophils % 1 L Lymphocytes % (Manual) 2 L Monocytes % (Manual) 1 L Abs Lymphs (Manual) 0.2 L Potassium 5.1 H Chloride 110 H Carbon Dioxide 19 L BUN 56 H Creatinine 3.42 H Est GFR ( Amer) 22 L Est GFR (Non-Af Amer) 18 L Glucose 142 H Calcium 8.3 L Direct Bilirubin 0.5 H AST 13 L ALT 20 L Creatine Kinase < 20 L Total Protein 5.1 L Albumin 2.8 L - EKG Interpretation by Me Rate: Normal Rhythm: A.Fib - Transfer of Care Care transferred to following provider: Dr Khan Discharge - Discharge Clinical Impression: Acute renal insufficiency Syncope Qualifiers: Syncope type: unspecified Qualified Code(s): R55 - Syncope and collapse Ribs, multiple fractures Qualifiers: Encounter type: initial encounter Fracture type: closed Laterality: left Qualified Code(s): S22.42XA - Multiple fractures of ribs, left side, initial encounter for closed fracture Admitting Provider: Reba Unit Admitted: Telemetry Referrals: JUAN R KHAN MD [Primary Care Provider] - Follow up as needed
--- NOTE | 2016-11-25 12:21 | EKG REPORT ---
SEVERITY:- ABNORMAL ECG - ATRIAL FIBRILLATION LEFT AXIS DEVIATION BORDERLINE PROLONGED QT INTERVAL : Confirmed by: Chinyere Davis 25-Nov-2016 12:20:03
[2016-11-25 12:39] LABS: ALANINE AMINOTRANSFERASE 20 U/L (21-72); ALBUMIN 2.8 g/dL (3.5-5.0); ALKALINE PHOSPHATASE 61 U/L (38-126); ANION GAP 11 (5-19); ASPARTATE AMINO TRANSFERASE 13 U/L (17-59); BILIRUBIN,DIRECT 0.5 mg/dL (0.0-0.4); BILIRUBIN,TOTAL 0.7 mg/dL (0.2-1.3); BLOOD UREA NITROGEN 56 mg/dL (7-20); CALCIUM 8.3 mg/dL (8.4-10.2); CARBON DIOXIDE 19 mmol/L (22-30); CHLORIDE 110 mmol/L (98-107); CREATININE RESULT 3.42 mg/dL (0.52-1.25); GLUCOSE 142 mg/dL (75-110); POTASSIUM 5.1 mmol/L (3.6-5.0); SODIUM 139.7 mmol/L (137-145); TOTAL PROTEIN 5.1 g/dL (6.3-8.2)
[2016-11-25 12:41] LABS: CREATINE KINASE < 20 U/L (55-170)
[2016-11-25 12:51] LABS: HEMATOCRIT 36.5 % (37.9-51.0); HEMOGLOBIN 12.2 g/dL (13.5-17.0); HGB HCT DIFFERENCE 0.1; MEAN CORPUSCULAR HEMOGLOBIN 32.1 pg (27.0-33.4); MEAN CORPUSCULAR HGB CONC 33.5 g/dL (32.0-36.0); RED CELL DISTRIBUTION WIDTH 20.4 % (11.5-14.0); WHITE BLOOD COUNT 7.6 10^3/uL (4.0-10.5)
[2016-11-25 12:56] LABS: TROPONIN I < 0.012 ng/mL
[2016-11-25 13:22] LABS: MEAN CORPUSCULAR VOLUME 96 fl (80-97)
[2016-11-25] MEDS ORDERED: NORMAL SALINE 1000 ML 1,000 ML IV PRN (13:23)
[2016-11-25 13:28] LABS: BAND NEUTROPHILS % (MANUAL) 1 % (3-5); BASOPHILS % (MANUAL) 1 % (0-2); EOSINOPHILS % (MANUAL) 1 % (0-6); LYMPHOCYTES % (MANUAL) 2 % (13-45); TOTAL CELLS COUNTED 100
[2016-11-25 13:30] LABS: ACANTHOCYTES 1+; ANISOCYTOSIS 2+; BURR CELLS 2+; HOWELL-JOLLY BODIES PRESENT; HYPOCHROMASIA 1+; OVALOCYTES 1+; POIKILOCYTOSIS 3+; SCHISTOCYTES 1+; TARGET CELLS SLIGHT; TOXIC GRANULATION 1+; TOXIC VACUOLATION PRESENT
--- NOTE | 2016-11-25 13:35 | RADIOLOGY REPORT (SQ) ---
EXAM DESCRIPTION: RIBS LEFT W/PA CHEST COMPLETED DATE/TIME: 11/25/2016 1:14 pm REASON FOR STUDY: fall COMPARISON: 11/01/2016 TECHNIQUE: Frontal view of the chest and additional views of the left ribs acquired. NUMBER OF VIEWS: Five view. LIMITATIONS: None. FINDINGS: FRONTAL CXR: Chronic areas of scarring and chronic interstitial changes. There appears raymond ve been some worsening particularly in the left parahilar region raising the possibility of active in filtrate or edema. No effusions. Cardiac silhouette at the upper limits of normal. Right jugular c atheter with tip in superior vena cava. RIBS: Stable mixed lytic and sclerotic lesions involving the left lateral 7th rib in the posterior le ft 10th rib. Acute fractures involving the posterolateral left 4th and 5th ribs. Acute fracture inv olving the 10th rib laterally. OTHER: No other significant finding. IMPRESSION: 1. Acute fractures involving the left 4th 5th and 10th ribs. 2. Chronic mixed lucent sclerotic lesions involving the left 7th and 10th ribs which by history are related to multiple myeloma. 3. Chronic parenchymal changes are seen in the lungs which appears slightly more prominent raising t he possibility of active pneumonia or edema. COMMENT: SITE OF TRAUMA/COMPLAINT MARKED/STAMP COMPLETED: YES. TECHNICAL DOCUMENTATION: JOB ID: [id number] [employer]- All Rights Reserved
--- NOTE | 2016-11-25 13:42 | RADIOLOGY REPORT (SQ) ---
EXAM DESCRIPTION: ELBOW LEFT OVER 2 VIEWS COMPLETED DATE/TIME: 11/25/2016 1:14 pm REASON FOR STUDY: fall COMPARISON: None. NUMBER OF VIEWS: Four views. TECHNIQUE: AP, lateral, and both oblique radiographic images acquired of the left elbow. LIMITATIONS: None. FINDINGS: MINERALIZATION: Normal. BONES: Small calcific densities adjacent to the olecranon probably related to spurring or tendinous c alcifications as there is limited soft tissue swelling in this region. Small avulsion fracture fragm ents cannot be excluded. JOINT: Possible small joint effusion. SOFT TISSUES: No soft tissue swelling. No foreign body. OTHER: No other significant finding. IMPRESSION: Small calcifications adjacent to the olecranon probably tendinous although small avulsio n fractures cannot be excluded. TECHNICAL DOCUMENTATION: JOB ID: [id number] [employer]- All Rights Reserved
[2016-11-25] MEDS ORDERED: DEXTROSE 50%-WATER 25 GM/50 ML DISP.SYRIN IV PRN ×2 (14:43)
[2016-11-25] MEDS ORDERED: GLUCAGON,HUMAN RECOMB 1 MG INJ IM PRN (14:43)
[2016-11-25] MEDS ORDERED: DEXTROSE 40% GEL 15 GM TUBE PO PRN ×2 (14:43)
[2016-11-25 17:38] LABS: APPEARANCE,URINE SLIGHTLY-CLOUDY; BILIRUBIN,URINE NEGATIVE (NEGATIVE); GLUCOSE, URINE NEGATIVE (NEGATIVE); KETONES,URINE NEGATIVE (NEGATIVE); LEUKOCYTE ESTERASE,URINE TRACE (NEGATIVE); NITRITE,URINE NEGATIVE (NEGATIVE); PROTEIN,URINE NEGATIVE (NEGATIVE); URINE SPECIFIC GRAVITY 1.009; UROBILINOGEN,URINE NEGATIVE mg/dL (<2.0)
[2016-11-25] MEDS: TAMSULOSIN HCL 0.4 MG CAP.SR.24H PO SCH (18:12)
--- NOTE | 2016-11-25 18:53 | PDOC H&P ---
History of Present Illness Admission Date/PCP: 11/25/16 13:46 JUAN R KHAN MD Patient complains of: passed out in parking lot History of Present Illness: LESTER DELONG is a 71 year old male with deteriorating performance and multiple admissions. He left SNF after september admission. Children visited last week but left without a plan. Sugar was 30 today after skipping breakfast. New omaira in ER. Retention twice this year. PVR by bladder scan now 355ml. Off revlumid for neuropathy and falls since september admission. Markers worse. Past Medical History Cardiac Medical History: Reports: Atrial Fibrillation - off lovenox because of falls, DVT, Hyperlipidema, Hypertension - meds x yrs Denies: Coronary Artery Disease, Myocardial Infarction Pulmonary Medical History: Reports: Pneumonia - home 6jul after a week of zosyn for LLL infiltrate Denies: Asthma, Bronchitis, Chronic Obstructive Pulmonary Disease (COPD), Tuberculosis Neurological Medical History: Denies: Seizures Endocrine Medical History: Reports: Diabetes Mellitus Type 2 Renal/ Medical History: Reports: None Malignancy Medical History: Reports: Other - myeloma GI Medical History: Reports: Gastroesophageal Reflux Disease Denies: Hepatitis Musculoskeltal Medical History: Reports: Arthritis - B/L hands Psychiatric Medical History: Reports: Dementia - Mild Denies: Depression Hematology: Denies: Anemia - has polycythemia vera, Sickle Cell Disease Infectious Medical History: Reports: 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 neck mass plasmacytoma Denies: Pacemaker Social History Information Source: Dr. Moran Lives with: Alone Smoking Status: Never Smoker Frequency of Alcohol Use: None Hx Recreational Drug Use: No Drugs: None Hx Prescription Drug Abuse: No - Advance Directive Resuscitation Status: Full Code Family History Family History: CAD, Malignancy Parental Family History Reviewed: Yes Children Family History Reviewed: Yes Sibling(s) Family History Reviewed.: Yes Medication/Allergy Home Medications: Alfuzosin HCl [Uroxatral] 10 mg PO DAILY 11/25/16 Amiodarone HCl [Cordarone 200 mg Tablet] 200 mg PO DAILY 11/25/16 Diltiazem HCl [Cardizem Cd 240 mg Capsule.cr] 240 mg PO DAILY 11/25/16 Esomeprazole Mag Trihydrate [Nexium] 40 mg PO DAILY 11/25/16 Fenofibrate 160 mg PO DAILY 11/25/16 Finasteride [Proscar 5 mg Tablet] 5 mg PO DAILY 11/25/16 Fluticasone/Salmeterol [Advair 100-50 Diskus 14 Dose/Diskus] 1 puff IH BID 11/25 Insulin Aspart [Novolog Flexpen] 10 units SQ MEALS 11/25/16 Insulin Glargine,Hum.rec.anlog [Lantus Solostar] 30 units SQ QPM 11/25/16 Lisinopril [Zestril] 40 mg PO DAILY 11/25/16 Metformin HCl [Glucophage XR 500 mg Tablet] 2,000 mg PO WSUPPER 11/25/16 Allergies/Adverse Reactions: No Known Allergies Allergy (Verified 03/04/13 08:41) Review of Systems Constitutional: PRESENT: weight loss. ABSENT: fever(s), headache(s) Nose, Mouth, and Throat: ABSENT: sore throat Cardiovascular: PRESENT: chest pain - L pleuritic at 3 new rib fractures, dyspnea on exertion. ABSENT: orthropnea Respiratory: ABSENT: cough Gastrointestinal: ABSENT: constipation, diarrhea, hematochezia, melena, vomiting Genitourinary: ABSENT: difficulty urinating, dysuria, hematuria Neurological: PRESENT: frequent falls - denies any since discharge x today's syncope, numbness, syncope Physical Exam Vital Signs: Temp Pulse Resp BP Pulse Ox 27 H 98 11/25/16 14:00 11/25/16 14:00 Intake & Output 11/24/16 11/25/16 11/26/16 07:59 07:59 07:59 Weight 172 lb 2.896 oz General appearance: PRESENT: no acute distress Respiratory exam: PRESENT: chest wall tenderness - left, clear to auscultation esme Cardiovascular exam: PRESENT: irregular rhythm. ABSENT: diastolic murmur, systolic murmur GI/Abdominal exam: ABSENT: mass, organolmegaly, tenderness Extremities exam: PRESENT: pedal edema - trace R Neurological exam: PRESENT: oriented to situation Psychiatric exam: PRESENT: appropriate affect Results Laboratory Results: Abnormal - 24 hr 11/25/16 11/25/16 11/25/16 12:00 12:30 17:08 RBC 3.80 L Hgb 12.2 L Hct 36.5 L RDW 20.4 H Seg Neuts % (Manual) 94 H Band Neutrophils % 1 L Lymphocytes % (Manual) 2 L Monocytes % (Manual) 1 L Abs Lymphs (Manual) 0.2 L Potassium 5.1 H Chloride 110 H Carbon Dioxide 19 L BUN 56 H Creatinine 3.42 H Est GFR ( Amer) 22 L Est GFR (Non-Af Amer) 18 L Glucose 142 H Calcium 8.3 L Direct Bilirubin 0.5 H AST 13 L ALT 20 L Creatine Kinase < 20 L Total Protein 5.1 L Albumin 2.8 L Urine Blood LARGE H Ur Leukocyte Esterase TRACE H EKG Comments: af Impressions: Elbow X-Ray 11/25/16 12:15 IMPRESSION: Small calcifications adjacent to the olecranon probably tendinous although small avulsion fractures cannot be excluded. Ribs w/Chest X-Ray 11/25/16 12:15 IMPRESSION: 1. Acute fractures involving the left 4th 5th and 10th ribs. 2. Chronic mixed lucent sclerotic lesions involving the left 7th and 10th ribs which by history are related to multiple myeloma. 3. Chronic parenchymal changes are seen in the lungs which appears slightly more prominent raising the possibility of active pneumonia or edema. Assessment & Plan - Diagnosis (1) Acute renal insufficiency Is this a current diagnosis for this admission?: YesPlan: elio, shi, us, 24h protein, consult nephrology, ?turp (2) Ribs, multiple fractures Qualifiers: Encounter type: initial encounter Fracture type: closed Laterality : left Qualified Code(s): S22.42XA - Multiple fractures of ribs, left side, initial encounter for closed fracture Is this a current diagnosis for this admission?: YesPlan: says doesnt hurt much (3) Alzheimer's dementia with behavioral disturbance Qualifiers: Alzheimer's disease onset: late-onset Qualified Code(s): G30.1 - Alzheimer's disease with late onset; F02.81 - Dementia in other diseases classified elsewhere with behavioral disturbance Is this a current diagnosis for this admission?: YesPlan: really needs SNF (4) Syncope Qualifiers: Syncope type: unspecified Qualified Code(s): R55 - Syncope and collapse Is this a current diagnosis for this admission?: YesPlan: was hypoglycemia (5) Type 2 diabetes mellitus with diabetic polyneuropathy Qualifiers: Diabetes mellitus long term care administrator insulin use: with long term care administrator use Qualified Code(s): E11.42 - Type 2 diabetes mellitus with diabetic polyneuropathy; Z79.4 - terminologist (current) use of insulin Is this a current diagnosis for this admission?: YesPlan: sliding scale, up with help (6) Multiple myeloma Qualifiers: Multiple myeloma remission status: not in remission Qualified Code(s ): C90.00 - Multiple myeloma not having achieved remission Is this a current diagnosis for this admission?: YesPlan: consult Dr Arriaga - Inpatient Certification Based on my medical assessment, after consideration of the patient's comorbidities, presenting symptoms, or acuity I expect that the services needed warrant INPATIENT care.: Yes I certify that my determination is in accordance with my understanding of Medicare's requirements for reasonable and necessary INPATIENT services [42 CFR 412.3e].: Yes Medical Necessity: Failure to Improve With Outpatient Therapy, Significant Comorbidiites Make Outpatient Treatment Too Risky, Need Close Monitoring Due to Risk of Patient Decompensation, Need For IV Fluids, Need For Continuous Telemetry Monitoring, Risk of Complication if Not Cared For in Hospital, Risk of Diagnosis Which Will Require Inpatient Eval/Care/Monitoring
[2016-11-25] MEDS: FLUTICASONE/SALMETEROL DISKUS 100-50 MCG/DOSE IH SCH (21:21)
[2016-11-25] MEDS: NORMAL SALINE 1000 ML 1,000 ML IV PRN (21:23)
--- NOTE | 2016-11-25 23:29 | RADIOLOGY REPORT (SQ) ---
EXAM DESCRIPTION: U/S RETROPERITON (RENAL/AORTA) COMPLETED DATE/TIME: 11/25/2016 11:08 pm REASON FOR STUDY: omaira. ?retention again. Need pvr COMPARISON: None. TECHNIQUE: Dynamic and static grayscale images acquired of the kidneys and bladder and recorded on P ACS. Additional selected color Doppler and spectral images recorded. LIMITATIONS: None. FINDINGS: RIGHT KIDNEY: Normal size. Normal echogenicity. 1.4 cm cyst. No hydronephrosis. N o calcifications. LEFT KIDNEY: Normal size. Normal echogenicity. No solid or suspicious masses. No hydronephrosi s. No calcifications. BLADDER: Bryan catheter in place. Cannot assess postvoid residual. OTHER FINDINGS: No other significant finding. IMPRESSION: Right renal cyst. No hydronephrosis. TECHNICAL DOCUMENTATION: JOB ID: [id number] [employer]- All Rights Reserved
[2016-11-26 07:05] LABS: ANION GAP 7 (5-19); BLOOD UREA NITROGEN 46 mg/dL (7-20); CARBON DIOXIDE 21 mmol/L (22-30); CHLORIDE 112 mmol/L (98-107); CREATININE RESULT 2.96 mg/dL (0.52-1.25); GLUCOSE 95 mg/dL (75-110); POTASSIUM 5.1 mmol/L (3.6-5.0); SODIUM 139.6 mmol/L (137-145)
--- NOTE | 2016-11-26 08:49 | PDOC PROGRESS REPORT ---
Subjective Progress Note for:: 11/26/16 Subjective:: no new symptoms Physical Exam Vital Signs: Temp Pulse Resp BP Pulse Ox 97.7 F 83 16 145/88 H 95 11/26/16 07:28 11/26/16 07:28 11/26/16 07:28 11/26/16 07:28 11/26/16 07:28 Intake & Output 11/25/16 11/26/16 11/27/16 07:59 07:59 07:59 Intake Total 2400 Output Total 1700 Balance 700 Weight 170 lb 6.677 oz General appearance: PRESENT: no acute distress Respiratory exam: PRESENT: clear to auscultation esme Cardiovascular exam: PRESENT: irregular rhythm. ABSENT: diastolic murmur, systolic murmur GI/Abdominal exam: ABSENT: mass, organolmegaly, tenderness Extremities exam: ABSENT: pedal edema Neurological exam: PRESENT: oriented to situation Psychiatric exam: PRESENT: appropriate affect Results Laboratory Results: 11/26/16 06:20 11/25/16 11/26/16 17:08 06:20 Sodium 139.6 Potassium 5.1 H Chloride 112 H Carbon Dioxide 21 L Anion Gap 7 BUN 46 H Creatinine 2.96 H Est GFR ( Amer) 25 L Est GFR (Non-Af Amer) 21 L Glucose 95 Calcium 8.0 L Urine Color YELLOW Urine Appearance SLIGHTLY-CLOUDY Urine pH 6.0 Ur Specific [place] 1.009 Urine Protein NEGATIVE Urine Glucose (UA) NEGATIVE Urine Ketones NEGATIVE Urine Blood LARGE H Urine Nitrite NEGATIVE Ur Leukocyte Esterase TRACE H Urine WBC (Auto) 10 Urine RBC (Auto) 150 Impressions: Renal Ultrasound 11/25/16 00:00 IMPRESSION: Right renal cyst. No hydronephrosis. Elbow X-Ray 11/25/16 12:15 IMPRESSION: Small calcifications adjacent to the olecranon probably tendinous although small avulsion fractures cannot be excluded. Ribs w/Chest X-Ray 11/25/16 12:15 IMPRESSION: 1. Acute fractures involving the left 4th 5th and 10th ribs. 2. Chronic mixed lucent sclerotic lesions involving the left 7th and 10th ribs which by history are related to multiple myeloma. 3. Chronic parenchymal changes are seen in the lungs which appears slightly more prominent raising the possibility of active pneumonia or edema. Assessment & Plan - Diagnosis (1) Acute renal insufficiency Is this a current diagnosis for this admission?: YesPlan: improving with elio (2) Ribs, multiple fractures Qualifiers: Encounter type: initial encounter Fracture type: closed Laterality : left Qualified Code(s): S22.42XA - Multiple fractures of ribs, left side, initial encounter for closed fracture Is this a current diagnosis for this admission?: Yes (3) Alzheimer's dementia with behavioral disturbance Qualifiers: Alzheimer's disease onset: late-onset Qualified Code(s): G30.1 - Alzheimer's disease with late onset; F02.81 - Dementia in other diseases classified elsewhere with behavioral disturbance Is this a current diagnosis for this admission?: Yes (4) Syncope Qualifiers: Syncope type: unspecified Qualified Code(s): R55 - Syncope and collapse Is this a current diagnosis for this admission?: Yes (5) Type 2 diabetes mellitus with diabetic polyneuropathy Qualifiers: Diabetes mellitus termite technician insulin use: with senior care use Qualified Code(s): E11.42 - Type 2 diabetes mellitus with diabetic polyneuropathy Is this a current diagnosis for this admission?: YesPlan: has not needed insulin yet (6) Multiple myeloma Qualifiers: Multiple myeloma remission status: not in remission Qualified Code(s ): C90.00 - Multiple myeloma not having achieved remission Is this a current diagnosis for this admission?: Yes (7) BPH with urinary obstruction Is this a current diagnosis for this admission?: YesPlan: [id number]. Cultured. May need turp. - Inpatient Certification Based on my medical assessment, after consideration of the patient's comorbidities, presenting symptoms, or acuity I expect that the services needed warrant INPATIENT care.: Yes I certify that my determination is in accordance with my understanding of Medicare's requirements for reasonable and necessary INPATIENT services [42 CFR 412.3e].: Yes Medical Necessity: Failure to Improve With Outpatient Therapy, Significant Comorbidiites Make Outpatient Treatment Too Risky, Need Close Monitoring Due to Risk of Patient Decompensation, Need For IV Fluids, Need For Continuous Telemetry Monitoring, Risk of Complication if Not Cared For in Hospital, Risk of Diagnosis Which Will Require Inpatient Eval/Care/Monitoring
[2016-11-26] MEDS ORDERED: DILTIAZEM HCL 240 MG CAPSULE.CR PO SCH (10:00)
[2016-11-26] MEDS ORDERED: (PENDING PHARMACY ID) (Diltiazem Hcl [Diltiazem 24hr Er] 240 MG) PO SCH (10:00)
[2016-11-26] MEDS: INSULIN REG, HUMAN 100 UNIT/ML 3 ML VIAL (PYX) SUBCUT PRN ×2 (11:40→17:27)
[2016-11-26] MEDS: AMIODARONE HCL 200 MG TABLET PO SCH (11:43)
[2016-11-26] MEDS: LACTULOSE SYRUP 20 GM/30 ML UDCUP PO SCH (11:43)
[2016-11-26] MEDS: FLUTICASONE/SALMETEROL DISKUS 100-50 MCG/DOSE IH SCH ×2 (11:43→21:57)
[2016-11-26] MEDS: FINASTERIDE 5 MG TABLET PO SCH (11:43)
[2016-11-26] MEDS: TAMSULOSIN HCL 0.4 MG CAP.SR.24H PO SCH (17:20)
[2016-11-26] MEDS: NORMAL SALINE 1000 ML 1,000 ML IV PRN (17:29)
--- NOTE | 2016-11-26 17:54 | CONSULTATION REPORT E ---
Consultation Report NAME: LESTER DELONG : 1945 AGE: 71Y DATE: 11/26/2016 528 A TO: ОЛЕГ BELTRAN M.D. FROM: JUAN R KHAN M.D. Requesting Physician HISTORY OF PRESENT ILLNESS: The patient is a 71-year-old man with a history of multiple myeloma. His other medical problems include atrial fibrillation, high blood pressure, diabetes, hyperlipidemia, history of treatment for MAC. He was in the office yesterday and while he was in the parking lot, he fell. He was found to be hypoglycemic and was very somnolent. He was sent to the emergency room, from which he was admitted. Today at the bedside, he is alert and answers all questions appropriately. I had a long discussion with him today, explaining his recent medical problems. I explained to him that he has had frequent falls and also his mental status is questionable with regards to him living at home by himself. He does have 2 children, but they live far away from here. The only person he has to check on him at home is his neighbor, who is also elderly. I explained to him that I was concerned that his multiple myeloma appears to be progressing and that might be contributing to his current medical condition and frequent hospitalizations. During this hospitalization, he has evidence of acute renal insufficiency which is new, his serum creatinine appears to be improving since this hospitalization. My plan with regard to his multiple myeloma is to consider restarting him on Velcade which is given subcutaneous once a week and see if his myeloma serology improves if that translates to an improvement to his current medical condition. With regards to his mental and physical state, I explained that it might be prudent for him to be discharged to an assisted-living facility. I have requested discharge planning to look into [facility] or other local assisted-living facility where he can also undergo physical therapy to help strengthen his muscles and also his balance. I will discuss with the pilot manager and also his primary care physician the possibility of restarting him on chemotherapy either with Pomalyst which would be a pill, or Velcade which can be given weekly. I thank you for this consultation and allowing me to be part of his care. DICTATING PHYSICIAN: ОЛЕГ BELTRAN M.D. [id number] PHY#: [id number] ID: [id number] JOB#: [id number] ACCT: [id number] cc:ОЛЕГ BELTRAN M.D. >
--- NOTE | 2016-11-26 19:49 | PDOC CONSULTATION ---
Consultation Consult Date: 11/26/16 Attending physician:: JUAN R KHAN Consult reason:: I was asked by Dr. Abdul to see the patient because of acute renal failure. History of Present Illness Admission Date/PCP: 11/25/16 14:34 JUAN R KHAN MD History of Present Illness: The patient is a 71-year-old gentleman with history of atrial fibrillation, hypertension, diabetes mellitus type 2, and multiple myeloma followed by Dr. Arriaga was brought into the emergency room yesterday after a syncopal episode. Patient said that she had appointment with Dr. Arriaga and at the parking lot while walking he suddenly passed out. His blood sugar was found to be low at 45 he and he was given some IV fluids at Dr. galaviz office. Subsequently EMS was called and he was brought to the emergency room. Patient said that prior to that incident yesterday he was feeling great and denies any medical issues. Patient just went home from [facility] for about a week. He lives by himself. If that he eats good and drink fluids okay well at home prior to this episode. When he came in yesterday had a BUN of 56 and creatinine of 3.46 with estimated GFR of 18. Back in October 30, 2016 if kidney function is normal with BUN of 21 creatinine of 0.82 and estimated kidney function greater than 60%. Today his BUN is 46 and creatinine of 2.96 with estimated GFR 21. He is being given some IV fluids. He is making adequate amount of urine through Bryan catheter. Kidney function seems unremarkable with normal kidney sizes and no hydronephrosis. Urinalysis did not show any micro-proteinuria although there are some microhematuria but this could be from a Bryan catheter specimen. Patient tells me that he is being treated and followed for his multiple myeloma by Dr. Arriaga who just saw the patient today. Today the patient said he is feeling good and does not really have any complaints. Denies any previous problem with his kidneys. Denies any history of kidney stones nor hepatitis nor known proteinuria or hematuria. There is no known involvement of the kidneys with multiple myeloma. He denies any known enlarged prostate that he is aware off. However he is taking finasteride and Flomax. Currently he is seems to be hemodynamically stable. Past Medical History Cardiac Medical History: Reports: Atrial Fibrillation - off lovenox because of falls, DVT, Hyperlipidemia, Hypertension-primary Pulmonary Medical History: Reports: Pneumonia - home 6jul after a week of zosyn for LLL infiltrate Neurological Medical History: Denies: Seizures Endocrine Medical History: Reports: Diabetes Mellitus Type 2 Malignancy Medical History: Reports: Other - myeloma GI Medical History: Reports: Gastroesophageal Reflux Disease Musculoskeltal Medical History: Reports: Arthritis - B/L hands Psychiatric Medical History: Reports: Dementia - Mild Infectious Medical History: 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 Social History Information Source: Patient Lives with: Alone Smoking Status: Never Smoker Frequency of Alcohol Use: None Hx Recreational Drug Use: No Drugs: None Hx Prescription Drug Abuse: No - Advance Directive Resuscitation Status: Full Code Family History Family History: CAD - Mother, Malignancy - Father Parental Family History Reviewed: Yes Children Family History Reviewed: Yes Sibling(s) Family History Reviewed.: Yes Medication/Allergy Home Medications: Alfuzosin HCl [Uroxatral] 10 mg PO DAILY 11/25/16 Amiodarone HCl [Cordarone 200 mg Tablet] 200 mg PO DAILY 11/25/16 Diltiazem HCl [Cardizem Cd 240 mg Capsule.cr] 240 mg PO DAILY 11/25/16 Esomeprazole Mag Trihydrate [Nexium] 40 mg PO DAILY 11/25/16 Fenofibrate 160 mg PO DAILY 11/25/16 Finasteride [Proscar 5 mg Tablet] 5 mg PO DAILY 11/25/16 Fluticasone/Salmeterol [Advair 100-50 Diskus 14 Dose/Diskus] 1 puff IH BID 11/25 Insulin Aspart [Novolog Flexpen] 10 units SQ MEALS 11/25/16 Insulin Glargine,Hum.rec.anlog [Lantus Solostar] 30 units SQ QPM 11/25/16 Lisinopril [Zestril] 40 mg PO DAILY 11/25/16 Metformin HCl [Glucophage XR 500 mg Tablet] 2,000 mg PO WSUPPER 11/25/16 Allergies/Adverse Reactions: No Known Allergies Allergy (Verified 03/04/13 08:41) Review of Systems All systems: reviewed and no additional remarkable complaints except as stated Review of Systems: Constitutional: ABSENT: chills, fatigue, fever(s), headache(s), weight gain, weight loss Eyes: ABSENT: visual disturbances Ears: ABSENT: hearing changes Cardiovascular: ABSENT: chest pain, dyspnea on exertion, edema, orthropnea, palpitations Respiratory: ABSENT: cough, dyspnea, hemoptysis Gastrointestinal: ABSENT: abdominal pain, constipation, diarrhea, hematemesis, hematochezia, nausea, vomiting Genitourinary: ABSENT: dysuria, hematuria Musculoskeletal: ABSENT: joint swelling Integumentary: ABSENT: rash, wounds Neurological: ABSENT: abnormal gait, abnormal speech, confusion, dizziness, focal weakness, numbness, syncope Psychiatric: ABSENT: anxiety, depression Endocrine: ABSENT: cold intolerance, heat intolerance, polydipsia, polyuria Hematologic/Lymphatic: ABSENT: easy bleeding, easy bruising, lymphadenopathy Physical Exam Vital Signs: Temp Pulse Resp BP Pulse Ox 97.7 F 100 18 141/83 H 97 11/26/16 15:22 11/26/16 15:22 11/26/16 15:22 11/26/16 15:22 11/26/16 15:22 Intake & Output 11/25/16 11/26/16 11/27/16 06:59 06:59 06:59 Intake Total 2400 360 Output Total 1700 300 Balance 700 60 Weight 77.3 kg Exam: General appearance: no acute distress, cooperative, well-developed, well- nourished Head exam: PRESENT: atraumatic, normocephalic Eye exam: PRESENT: Conjunctiva Hack[place], EOMI, PERRLA. ABSENT: conjunctival injection, scleral icterus Mouth exam: PRESENT: moist, neck supple, tongue midline Neck exam: PRESENT: full ROM. ABSENT: carotid bruit, JVD, lymphadenopathy, thyromegaly Respiratory exam: PRESENT: clear to auscultation bilaterally. Pain over the left rib cage area due to rib fractures. ABSENT: rales, rhonchi, stridor, wheezes Cardiovascular exam: PRESENT: Irregularly irregular rate and rhythm, +S1, +S2. ABSENT: systolic murmur Pulses: PRESENT: normal radial pulses, normal dorsalis pedis pulses GI/Abdominal exam: PRESENT: normal bowel sounds, soft. ABSENT: guarding, mass, tenderness Rectal exam: deferred Extremities exam: PRESENT: full ROM. ABSENT: calf tenderness, pedal edema Musculoskeletal: PRESENT: full ROM. ABSENT: deformity Neurological exam: PRESENT: alert, Awake, Oriented to person, Oriented to place , Oriented to time, reflexes normal, CN II-XII grossly intact. ABSENT: motor sensory deficit Psychiatric exam: PRESENT: appropriate affect, normal mood. ABSENT: homicidal ideation, suicidal ideation Skin exam: PRESENT: intact, dry, warm. ABSENT: rash Results Laboratory Results: 11/26/16 06:20 11/26/16 06:20 Sodium 139.6 Potassium 5.1 H Chloride 112 H Carbon Dioxide 21 L Anion Gap 7 BUN 46 H Creatinine 2.96 H Est GFR ( Amer) 25 L Est GFR (Non-Af Amer) 21 L Glucose 95 Calcium 8.0 L Impressions: Renal Ultrasound 11/25/16 00:00 IMPRESSION: Right renal cyst. No hydronephrosis. Right kidney measure 12.5 cm and the left kidney at 13.92 cm. Elbow X-Ray 11/25/16 12:15 IMPRESSION: Small calcifications adjacent to the olecranon probably tendinous although small avulsion fractures cannot be excluded. Ribs w/Chest X-Ray 11/25/16 12:15 IMPRESSION: 1. Acute fractures involving the left 4th 5th and 10th ribs. 2. Chronic mixed lucent sclerotic lesions involving the left 7th and 10th ribs which by history are related to multiple myeloma. 3. Chronic parenchymal changes are seen in the lungs which appears slightly more prominent raising the possibility of active pneumonia or edema. Assessment & Plan - Diagnosis (1) Acute kidney injury Is this a current diagnosis for this admission?: YesPlan: Currently nonoliguric. This is possibly a combination of prerenal due to possible volume depletion and post renal due to urinary retention because of BPH. There is no obvious microbe proteinuria with questionable microhematuria. Currently kidney function is improving with IV fluid hydration. 24-hour urine for protein is currently being collected. This seems to be more of an acute rather than chronic involvement of multiple myeloma. The patient's kidney function is currently improving with regard to continue current management. There is no indication for any renal replacement therapy at this time. Continue to monitor kidney function and electrolytes. (2) Benign prostatic hyperplasia Qualifiers: Lower urinary tract symptom detail: urinary retention Is this a current diagnosis for this admission?: Yes (3) Multiple myeloma Qualifiers: Multiple myeloma remission status: not in remission Qualified Code(s ): C90.00 - Multiple myeloma not having achieved remission Is this a current diagnosis for this admission?: YesPlan: Followed and treated by Dr. Arriaga. 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 Will follow patient with you. - Time Time Spent: 50 to 70 Minutes
[2016-11-27 01:24] LABS: URINE PROTEIN 30.9 mg/dL (<12)
[2016-11-27] MEDS ORDERED: DILTIAZEM HCL 60 MG TABLET PO ONE (03:30)
[2016-11-27 05:30] LABS: ANION GAP 7 (5-19); BLOOD UREA NITROGEN 40 mg/dL (7-20); CARBON DIOXIDE 20 mmol/L (22-30); CHLORIDE 113 mmol/L (98-107); CREATININE RESULT 2.72 mg/dL (0.52-1.25); GLUCOSE 125 mg/dL (75-110); POTASSIUM 4.5 mmol/L (3.6-5.0); SODIUM 139.5 mmol/L (137-145)
--- NOTE | 2016-11-27 08:17 | PDOC PROGRESS REPORT ---
Subjective Progress Note for:: 11/27/16 Subjective:: little appetite. L ribs hurt Physical Exam Vital Signs: Temp Pulse Resp BP Pulse Ox 97.7 F 100 18 136/85 H 94 11/27/16 07:20 11/27/16 07:20 11/27/16 07:20 11/27/16 07:20 11/27/16 07:20 Intake & Output 11/26/16 11/27/16 11/28/16 07:59 07:59 07:59 Intake Total 2400 2380 Output Total 1700 2900 Balance 700 -520 Weight 170 lb 6.677 oz 172 lb 13.478 oz General appearance: PRESENT: no acute distress Respiratory exam: PRESENT: clear to auscultation esme Cardiovascular exam: PRESENT: irregular rhythm. ABSENT: diastolic murmur, systolic murmur GI/Abdominal exam: ABSENT: mass, organolmegaly, tenderness Extremities exam: ABSENT: pedal edema Neurological exam: ABSENT: oriented to situation Psychiatric exam: PRESENT: unusual affect - in denial about seriousness of problems Results Laboratory Results: 11/27/16 04:45 Abnormal - 24 hr 11/25/16 11/26/16 11/26/16 21:30 11:16 16:05 Chloride Carbon Dioxide BUN Creatinine Est GFR ( Amer) Est GFR (Non-Af Amer) Glucose POC Glucose 181 H 164 H Calcium Ur Total Protein 24 Hr 803 H Urine Total Protein 30.9 H 11/26/16 11/27/16 11/27/16 22:06 04:45 06:29 Chloride 113 H Carbon Dioxide 20 L BUN 40 H Creatinine 2.72 H Est GFR ( Amer) 28 L Est GFR (Non-Af Amer) 23 L Glucose 125 H POC Glucose 115 H 125 H Calcium 8.0 L Ur Total Protein 24 Hr Urine Total Protein Impressions: Renal Ultrasound 11/25/16 00:00 IMPRESSION: Right renal cyst. No hydronephrosis. Elbow X-Ray 11/25/16 12:15 IMPRESSION: Small calcifications adjacent to the olecranon probably tendinous although small avulsion fractures cannot be excluded. Ribs w/Chest X-Ray 11/25/16 12:15 IMPRESSION: 1. Acute fractures involving the left 4th 5th and 10th ribs. 2. Chronic mixed lucent sclerotic lesions involving the left 7th and 10th ribs which by history are related to multiple myeloma. 3. Chronic parenchymal changes are seen in the lungs which appears slightly more prominent raising the possibility of active pneumonia or edema. Assessment & Plan - Diagnosis (1) Acute renal insufficiency Is this a current diagnosis for this admission?: YesPlan: pre&post renal slowly improving. Needs turp. Doubt anyone here to do it. (2) Ribs, multiple fractures Qualifiers: Encounter type: initial encounter Fracture type: closed Laterality : left Qualified Code(s): S22.42XA - Multiple fractures of ribs, left side, initial encounter for closed fracture Is this a current diagnosis for this admission?: YesPlan: tylenol (3) Alzheimer's dementia with behavioral disturbance Qualifiers: Alzheimer's disease onset: late-onset Qualified Code(s): G30.1 - Alzheimer's disease with late onset; F02.81 - Dementia in other diseases classified elsewhere with behavioral disturbance Is this a current diagnosis for this admission?: YesPlan: needs SNF (4) Syncope Qualifiers: Syncope type: unspecified Qualified Code(s): R55 - Syncope and collapse Is this a current diagnosis for this admission?: Yes (5) Type 2 diabetes mellitus with diabetic polyneuropathy Qualifiers: Diabetes mellitus jail insulin use: with jail use Qualified Code(s): E11.42 - Type 2 diabetes mellitus with diabetic polyneuropathy Is this a current diagnosis for this admission?: Yes (6) Multiple myeloma Qualifiers: Multiple myeloma remission status: not in remission Qualified Code(s ): C90.00 - Multiple myeloma not having achieved remission Is this a current diagnosis for this admission?: YesPlan: Ed suggested velcade later (7) BPH with urinary obstruction Is this a current diagnosis for this admission?: Yes - Inpatient Certification Medical Necessity: Failure to Improve With Outpatient Therapy, Significant Comorbidiites Make Outpatient Treatment Too Risky, Need For IV Fluids, Need for Surgery, Risk of Complication if Not Cared For in Hospital
[2016-11-27] MEDS: FINASTERIDE 5 MG TABLET PO SCH (10:44)
[2016-11-27] MEDS: DILTIAZEM HCL 180 MG CAPSULE.CR PO SCH (10:44)
[2016-11-27] MEDS: ACETAMINOPHEN 325 MG TABLET PO PRN ×2 (10:45→22:11)
[2016-11-27] MEDS: AMIODARONE HCL 200 MG TABLET PO SCH (10:46)
[2016-11-27] MEDS: FLUTICASONE/SALMETEROL DISKUS 100-50 MCG/DOSE IH SCH ×2 (10:46→22:11)
[2016-11-27] MEDS: LACTULOSE SYRUP 20 GM/30 ML UDCUP PO SCH (10:47)
[2016-11-27] MEDS: INSULIN REG, HUMAN 100 UNIT/ML 3 ML VIAL (PYX) SUBCUT PRN ×2 (13:10→18:41)
[2016-11-27] MEDS: TAMSULOSIN HCL 0.4 MG CAP.SR.24H PO SCH (18:41)
--- NOTE | 2016-11-27 20:26 | PDOC PROGRESS REPORT ---
Subjective Progress Note for:: 11/27/16 Subjective:: Patient is doing well. He is making an adequate amount of urine. Patient denies any complaints at all. He said is feeling good. Physical Exam Vital Signs: Temp Pulse Resp BP Pulse Ox 97.8 F 85 18 142/82 H 94 11/27/16 15:41 11/27/16 19:00 11/27/16 15:41 11/27/16 15:41 11/27/16 15:41 Intake & Output 11/26/16 11/27/16 11/28/16 06:59 06:59 06:59 Intake Total 2400 2380 2940 Output Total 1700 2900 1800 Balance 700 -520 1140 Weight 77.3 kg 78.4 kg Exam: General appearance: PRESENT: no acute distress, cooperative, well-developed, well-nourished Head exam: PRESENT: atraumatic, normocephalic Eye exam: PRESENT: conjunctiva pink, PERRLA. ABSENT: scleral icterus Neck exam: ABSENT: JVD Respiratory exam: PRESENT: Normal breath sounds. ABSENT: crackles, rales, rhonchi, unlabored, wheezes Cardiovascular exam: PRESENT: Regular rate rhythm -+S1, +S2. ABSENT: diastolic murmur, systolic murmur GI/Abdominal exam: PRESENT: normal bowel sounds, soft. ABSENT: guarding, mass, tenderness Extremities exam: ABSENT: No edema Neurological exam: PRESENT: alert, awake, oriented to person, place and time. Skin exam: PRESENT: dry, warm, Results Laboratory Results: 11/27/16 04:45 11/25/16 11/27/16 21:30 04:45 Sodium 139.5 Potassium 4.5 Chloride 113 H Carbon Dioxide 20 L Anion Gap 7 BUN 40 H Creatinine 2.72 H Est GFR ( Amer) 28 L Est GFR (Non-Af Amer) 23 L Glucose 125 H Calcium 8.0 L Ur 24 Hour Volume 2600 Ur Total Protein 24 Hr 803 H 11/25/16 16:08 Nasophary (Mrsa Only) MRSA Surveillance Culture - Final MRSA RECOVERED Impressions: Renal Ultrasound 11/25/16 00:00 IMPRESSION: Right renal cyst. No hydronephrosis. Elbow X-Ray 11/25/16 12:15 IMPRESSION: Small calcifications adjacent to the olecranon probably tendinous although small avulsion fractures cannot be excluded. Ribs w/Chest X-Ray 11/25/16 12:15 IMPRESSION: 1. Acute fractures involving the left 4th 5th and 10th ribs. 2. Chronic mixed lucent sclerotic lesions involving the left 7th and 10th ribs which by history are related to multiple myeloma. 3. Chronic parenchymal changes are seen in the lungs which appears slightly more prominent raising the possibility of active pneumonia or edema. Assessment & Plan - Diagnosis (1) Acute kidney injury Is this a current diagnosis for this admission?: YesPlan: Currently nonoliguric. This is possibly a combination of prerenal due to possible volume depletion and post renal due to urinary retention because of BPH. There is no obvious proteinuria with questionable microhematuria. Currently kidney function is improving with IV fluid hydration. 24-hour urine showed 800 mg of proteinuria. This seems to be more of an acute rather than chronic involvement of multiple myeloma. The patient's kidney function is currently improving with regard to continue current management. There is no indication for any renal replacement therapy at this time. Continue to monitor kidney function and electrolytes. (2) Benign prostatic hyperplasia Qualifiers: Lower urinary tract symptom detail: urinary retention Is this a current diagnosis for this admission?: Yes (3) Multiple myeloma Qualifiers: Multiple myeloma remission status: not in remission Qualified Code(s ): C90.00 - Multiple myeloma not having achieved remission Is this a current diagnosis for this admission?: YesPlan: Followed and treated by Dr. Arriaga. 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
[2016-11-28 06:29] LABS: ANION GAP 7 (5-19); BLOOD UREA NITROGEN 37 mg/dL (7-20); CARBON DIOXIDE 21 mmol/L (22-30); CHLORIDE 114 mmol/L (98-107); CREATININE RESULT 2.52 mg/dL (0.52-1.25); GLUCOSE 123 mg/dL (75-110); POTASSIUM 4.4 mmol/L (3.6-5.0); SODIUM 141.7 mmol/L (137-145)
--- NOTE | 2016-11-28 08:42 | PDOC PROGRESS REPORT ---
Subjective Progress Note for:: 11/28/16 Subjective:: OK. Daughter says he could affored SNF if she can stop scamers. Kids have power of divorce attorney. She plans to move him to her at some point. Physical Exam Vital Signs: Temp Pulse Resp BP Pulse Ox 97.7 F 96 18 146/76 H 94 11/28/16 07:27 11/28/16 07:27 11/28/16 07:27 11/28/16 07:27 11/28/16 07:27 Intake & Output 11/27/16 11/28/16 11/29/16 07:59 07:59 07:59 Intake Total 2380 4110 Output Total 2900 3000 Balance -520 1110 Weight 172 lb 13.478 oz General appearance: PRESENT: no acute distress Respiratory exam: PRESENT: clear to auscultation esme Cardiovascular exam: PRESENT: irregular rhythm. ABSENT: diastolic murmur, systolic murmur GI/Abdominal exam: ABSENT: mass, organolmegaly, tenderness Extremities exam: ABSENT: pedal edema Neurological exam: ABSENT: oriented to situation Psychiatric exam: PRESENT: appropriate affect Results Laboratory Results: 11/28/16 04:15 11/28/16 04:15 Sodium 141.7 Potassium 4.4 Chloride 114 H Carbon Dioxide 21 L Anion Gap 7 BUN 37 H Creatinine 2.52 H Est GFR ( Amer) 31 L Est GFR (Non-Af Amer) 25 L Glucose 123 H Calcium 8.0 L 11/25/16 16:08 Nasophary ([facility]a Only) MRSA Surveillance Culture - Final MRSA RECOVERED Impressions: Renal Ultrasound 11/25/16 00:00 IMPRESSION: Right renal cyst. No hydronephrosis. Elbow X-Ray 11/25/16 12:15 IMPRESSION: Small calcifications adjacent to the olecranon probably tendinous although small avulsion fractures cannot be excluded. Ribs w/Chest X-Ray 11/25/16 12:15 IMPRESSION: 1. Acute fractures involving the left 4th 5th and 10th ribs. 2. Chronic mixed lucent sclerotic lesions involving the left 7th and 10th ribs which by history are related to multiple myeloma. 3. Chronic parenchymal changes are seen in the lungs which appears slightly more prominent raising the possibility of active pneumonia or edema. Assessment & Plan - Diagnosis (1) Acute renal insufficiency Is this a current diagnosis for this admission?: YesPlan: improving slowly on ivf & ballard (2) Ribs, multiple fractures Qualifiers: Encounter type: initial encounter Fracture type: closed Laterality : left Qualified Code(s): S22.42XA - Multiple fractures of ribs, left side, initial encounter for closed fracture Is this a current diagnosis for this admission?: Yes (3) Alzheimer's dementia with behavioral disturbance Qualifiers: Alzheimer's disease onset: late-onset Qualified Code(s): G30.1 - Alzheimer's disease with late onset; F02.81 - Dementia in other diseases classified elsewhere with behavioral disturbance Is this a current diagnosis for this admission?: YesPlan: SNF (4) Syncope Qualifiers: Syncope type: unspecified Qualified Code(s): R55 - Syncope and collapse Is this a current diagnosis for this admission?: Yes (5) Type 2 diabetes mellitus with diabetic polyneuropathy Qualifiers: Diabetes mellitus buttermaker continuous churn insulin use: with buttermaker continuous churn use Qualified Code(s): E11.42 - Type 2 diabetes mellitus with diabetic polyneuropathy Is this a current diagnosis for this admission?: Yes (6) Multiple myeloma Qualifiers: Multiple myeloma remission status: not in remission Qualified Code(s ): C90.00 - Multiple myeloma not having achieved remission Is this a current diagnosis for this admission?: Yes (7) BPH with urinary obstruction Is this a current diagnosis for this admission?: YesPlan: [facility] said patient needed out patient urodynometry before turp. He said to keep ballard. - Inpatient Certification Medical Necessity: Failure to Improve With Outpatient Therapy, Significant Comorbidiites Make Outpatient Treatment Too Risky, Need Close Monitoring Due to Risk of Patient Decompensation, Need For IV Fluids, Need For Continuous Telemetry Monitoring, Risk of Complication if Not Cared For in Hospital, Risk of Diagnosis Which Will Require Inpatient Eval/Care/Monitoring
[2016-11-28] MEDS: FINASTERIDE 5 MG TABLET PO SCH (09:38)
[2016-11-28] MEDS: DILTIAZEM HCL 180 MG CAPSULE.CR PO SCH (09:38)
[2016-11-28] MEDS: FLUTICASONE/SALMETEROL DISKUS 100-50 MCG/DOSE IH SCH ×2 (09:39→22:19)
[2016-11-28] MEDS: AMIODARONE HCL 200 MG TABLET PO SCH (09:39)
[2016-11-28] MEDS: LACTULOSE SYRUP 20 GM/30 ML UDCUP PO SCH (09:40)
[2016-11-28] MEDS: INSULIN REG, HUMAN 100 UNIT/ML 3 ML VIAL (PYX) SUBCUT PRN (12:20)
[2016-11-28] MEDS: TAMSULOSIN HCL 0.4 MG CAP.SR.24H PO SCH (18:02)
[2016-11-28] MEDS: FAMOTIDINE 20 MG TABLET PO SCH (19:08)
--- NOTE | 2016-11-28 19:18 | PDOC PROGRESS REPORT ---
Subjective Progress Note for:: 11/28/16 Subjective:: Patient continues to do well. He continues to have an adequate amount of urine output with Bryan catheter. He does not really have much new complaints. Physical Exam Vital Signs: Temp Pulse Resp BP Pulse Ox 97.7 F 88 18 148/87 H 95 11/28/16 16:00 11/28/16 16:00 11/28/16 16:00 11/28/16 16:00 11/28/16 16:00 Intake & Output 11/27/16 11/28/16 11/29/16 06:59 06:59 06:59 Intake Total 2380 4110 2170 Output Total 2900 3000 2200 Balance -520 1110 -30 Weight 78.4 kg 78.7 kg Exam: General appearance: PRESENT: no acute distress, cooperative, well-developed, well-nourished Head exam: PRESENT: atraumatic, normocephalic Eye exam: PRESENT: conjunctiva pink, PERRLA. ABSENT: scleral icterus Neck exam: ABSENT: JVD Respiratory exam: PRESENT: Diminished breath sounds. ABSENT: crackles, rales, rhonchi, unlabored, wheezes Cardiovascular exam: PRESENT: Irregular rate rhythm -+S1, +S2. ABSENT: diastolic murmur, systolic murmur GI/Abdominal exam: PRESENT: normal bowel sounds, soft. ABSENT: guarding, mass, tenderness Extremities exam: ABSENT: No edema Neurological exam: PRESENT: alert, awake, oriented to person, place and time. Skin exam: PRESENT: dry, warm, Results Laboratory Results: 11/28/16 04:15 11/28/16 04:15 Sodium 141.7 Potassium 4.4 Chloride 114 H Carbon Dioxide 21 L Anion Gap 7 BUN 37 H Creatinine 2.52 H Est GFR ( Amer) 31 L Est GFR (Non-Af Amer) 25 L Glucose 123 H Calcium 8.0 L Impressions: Renal Ultrasound 11/25/16 00:00 IMPRESSION: Right renal cyst. No hydronephrosis. Elbow X-Ray 11/25/16 12:15 IMPRESSION: Small calcifications adjacent to the olecranon probably tendinous although small avulsion fractures cannot be excluded. Ribs w/Chest X-Ray 11/25/16 12:15 IMPRESSION: 1. Acute fractures involving the left 4th 5th and 10th ribs. 2. Chronic mixed lucent sclerotic lesions involving the left 7th and 10th ribs which by history are related to multiple myeloma. 3. Chronic parenchymal changes are seen in the lungs which appears slightly more prominent raising the possibility of active pneumonia or edema. Assessment & Plan - Diagnosis (1) Acute kidney injury Is this a current diagnosis for this admission?: YesPlan: Currently nonoliguric. This is possibly a combination of prerenal due to possible volume depletion and post renal due to urinary retention because of BPH. There is no obvious proteinuria with questionable microhematuria. Currently kidney function is improving with IV fluid hydration. 24-hour urine showed 800 mg of proteinuria. This seems to be more of an acute rather than chronic involvement of multiple myeloma. The patient's kidney function is currently improving with regard to continue current management. There is no indication for any renal replacement therapy at this time. Continue to monitor kidney function and electrolytes. Patient would eventually need urology consultation and management for his urinary retention. (2) Benign prostatic hyperplasia Qualifiers: Lower urinary tract symptom detail: urinary retention Is this a current diagnosis for this admission?: Yes (3) Multiple myeloma Qualifiers: Multiple myeloma remission status: not in remission Qualified Code(s ): C90.00 - Multiple myeloma not having achieved remission Is this a current diagnosis for this admission?: YesPlan: Followed and treated by Dr. Arriaga. (4) Ribs, multiple fractures Qualifiers: Encounter type: initial encounter Fracture type: closed Laterality : left Qualified Code(s): S22.42XA - Multiple fractures of ribs, left side, initial encounter for closed fracture Is this a current diagnosis for this admission?: Yes (5) Syncope Qualifiers: Syncope type: unspecified Qualified Code(s): R55 - Syncope and collapse Is this a current diagnosis for this admission?: Yes (6) Type 2 diabetes mellitus without complications Qualifiers: Diabetes mellitus laborer marine terminal insulin use: with group home use Qualified Code(s): E11.9 - Type 2 diabetes mellitus without complications Is this a current diagnosis for this admission?: Yes - Time Time with patient: 15-25 minutes
[2016-11-28] MEDS: ACETAMINOPHEN 325 MG TABLET PO PRN (22:27)
--- NOTE | 2016-11-29 08:50 | PDOC PROGRESS REPORT ---
Subjective Progress Note for:: 11/29/16 Subjective:: arranging POA with daughter at [employer] paral[employer]. OK with rehab. 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 ABSENT: diastolic murmur, systolic murmur GI/Abdominal exam: PRESENT: tenderness. ABSENT: mass, organolmegaly Extremities exam: ABSENT: pedal edema Psychiatric exam: PRESENT: appropriate affect Results Laboratory Results: 11/28/16 04:15 Abnormal - 24 hr 11/28/16 11/28/16 11/29/16 11:23 22:19 06:36 POC Glucose 154 H 187 H 117 H Impressions: Renal Ultrasound 11/25/16 00:00 IMPRESSION: Right renal cyst. No hydronephrosis. Elbow X-Ray 11/25/16 12:15 IMPRESSION: Small calcifications adjacent to the olecranon probably tendinous although small avulsion fractures cannot be excluded. Ribs w/Chest X-Ray 11/25/16 12:15 IMPRESSION: 1. Acute fractures involving the left 4th 5th and 10th ribs. 2. Chronic mixed lucent sclerotic lesions involving the left 7th and 10th ribs which by history are related to multiple myeloma. 3. Chronic parenchymal changes are seen in the lungs which appears slightly more prominent raising the possibility of active pneumonia or edema. Assessment & Plan - Diagnosis (1) Acute renal insufficiency Is this a current diagnosis for this admission?: YesPlan: slowly improving with IVF & ballard (2) Ribs, multiple fractures Qualifiers: Encounter type: initial encounter Fracture type: closed Laterality : left Qualified Code(s): S22.42XA - Multiple fractures of ribs, left side, initial encounter for closed fracture Is this a current diagnosis for this admission?: Yes (3) Alzheimer's dementia with behavioral disturbance Qualifiers: Alzheimer's disease onset: late-onset Qualified Code(s): G30.1 - Alzheimer's disease with late onset; F02.81 - Dementia in other diseases classified elsewhere with behavioral disturbance Is this a current diagnosis for this admission?: YesPlan: SNF when available (4) Syncope Qualifiers: Syncope type: unspecified Qualified Code(s): R55 - Syncope and collapse Is this a current diagnosis for this admission?: Yes (5) Type 2 diabetes mellitus with diabetic polyneuropathy Qualifiers: Diabetes mellitus [facility] insulin use: with [facility] use Qualified Code(s): E11.42 - Type 2 diabetes mellitus with diabetic polyneuropathy Is this a current diagnosis for this admission?: YesPlan: needed only 8u in 24h possibly because of poor intake (6) Multiple myeloma Qualifiers: Multiple myeloma remission status: not in remission Qualified Code(s ): C90.00 - Multiple myeloma not having achieved remission Is this a current diagnosis for this admission?: Yes (7) BPH with urinary obstruction Is this a current diagnosis for this admission?: Yes (8) Malnutrition due to starvation Is this a current diagnosis for this admission?: YesPlan: albumin low. picky eater. Consulted certified alcohol counselor
[2016-11-29] MEDS: LACTULOSE SYRUP 20 GM/30 ML UDCUP PO SCH (09:14)
[2016-11-29] MEDS: FINASTERIDE 5 MG TABLET PO SCH (09:14)
[2016-11-29] MEDS: FLUTICASONE/SALMETEROL DISKUS 100-50 MCG/DOSE IH SCH ×2 (09:14→21:17)
[2016-11-29] MEDS: FAMOTIDINE 20 MG TABLET PO SCH (09:15)
[2016-11-29] MEDS: AMIODARONE HCL 200 MG TABLET PO SCH (09:15)
[2016-11-29] MEDS: DILTIAZEM HCL 180 MG CAPSULE.CR PO SCH (09:15)
[2016-11-29] MEDS: INSULIN REG, HUMAN 100 UNIT/ML 3 ML VIAL (PYX) SUBCUT PRN (11:21)
[2016-11-29] MEDS: TAMSULOSIN HCL 0.4 MG CAP.SR.24H PO SCH (17:56)
[2016-11-29] MEDS: ACETAMINOPHEN 325 MG TABLET PO PRN (23:15)
--- NOTE | 2016-11-30 06:52 | PDOC PROGRESS REPORT ---
Subjective Progress Note for:: 11/30/16 Subjective:: no symptoms Physical Exam Vital Signs: Temp Pulse Resp BP Pulse Ox 97.8 F 91 20 163/72 H 98 11/30/16 03:45 11/30/16 03:45 11/30/16 03:45 11/30/16 03:45 11/30/16 03:45 Intake & Output 11/28/16 11/29/16 11/30/16 07:59 07:59 07:59 Intake Total 4110 3470 2242 Output Total 3000 3850 3600 Balance 1110 -380 -1358 Weight 173 lb 8.061 oz 171 lb 15.369 oz General appearance: PRESENT: no acute distress Respiratory exam: PRESENT: clear to auscultation esme Cardiovascular exam: PRESENT: irregular rhythm. ABSENT: diastolic murmur, systolic murmur GI/Abdominal exam: ABSENT: mass, organolmegaly, tenderness Extremities exam: ABSENT: pedal edema Psychiatric exam: PRESENT: appropriate affect Results Laboratory Results: 11/28/16 04:15 11/27/16 07:35 Bryan Catheter Urine Culture - Final NO GROWTH 2 DAYS Abnormal - 24 hr 11/29/16 11/29/16 11/29/16 06:36 11:08 16:04 POC Glucose 117 H 173 H 146 H 11/29/16 22:11 POC Glucose 179 H Impressions: Renal Ultrasound 11/25/16 00:00 IMPRESSION: Right renal cyst. No hydronephrosis. Elbow X-Ray 11/25/16 12:15 IMPRESSION: Small calcifications adjacent to the olecranon probably tendinous although small avulsion fractures cannot be excluded. Ribs w/Chest X-Ray 11/25/16 12:15 IMPRESSION: 1. Acute fractures involving the left 4th 5th and 10th ribs. 2. Chronic mixed lucent sclerotic lesions involving the left 7th and 10th ribs which by history are related to multiple myeloma. 3. Chronic parenchymal changes are seen in the lungs which appears slightly more prominent raising the possibility of active pneumonia or edema. Assessment & Plan - Diagnosis (1) Acute renal insufficiency Is this a current diagnosis for this admission?: YesPlan: bmp (2) Ribs, multiple fractures Qualifiers: Encounter type: initial encounter Fracture type: closed Laterality : left Qualified Code(s): S22.42XA - Multiple fractures of ribs, left side, initial encounter for closed fracture Is this a current diagnosis for this admission?: Yes (3) Alzheimer's dementia with behavioral disturbance Qualifiers: Alzheimer's disease onset: late-onset Qualified Code(s): G30.1 - Alzheimer's disease with late onset; F02.81 - Dementia in other diseases classified elsewhere with behavioral disturbance Is this a current diagnosis for this admission?: YesPlan: SNF pending (4) Syncope Qualifiers: Syncope type: unspecified Qualified Code(s): R55 - Syncope and collapse Is this a current diagnosis for this admission?: Yes (5) Type 2 diabetes mellitus with diabetic polyneuropathy Qualifiers: Diabetes mellitus [facility] insulin use: with terminal block assembler use Qualified Code(s): E11.42 - Type 2 diabetes mellitus with diabetic polyneuropathy Is this a current diagnosis for this admission?: YesPlan: getting about 4u sliding scale daily. Switch to pioglitazone (6) Multiple myeloma Qualifiers: Multiple myeloma remission status: not in remission Qualified Code(s ): C90.00 - Multiple myeloma not having achieved remission Is this a current diagnosis for this admission?: Yes (7) BPH with urinary obstruction Is this a current diagnosis for this admission?: Yes (8) Malnutrition due to starvation Is this a current diagnosis for this admission?: YesPlan: consult social service manager
[2016-11-30] MEDS: PIOGLITAZONE HCL 15 MG TABLET PO SCH (08:35)
[2016-11-30] MEDS: FINASTERIDE 5 MG TABLET PO SCH (09:03)
[2016-11-30] MEDS: AMIODARONE HCL 200 MG TABLET PO SCH (09:03)
[2016-11-30] MEDS: DILTIAZEM HCL 180 MG CAPSULE.CR PO SCH (09:03)
[2016-11-30] MEDS: FLUTICASONE/SALMETEROL DISKUS 100-50 MCG/DOSE IH SCH ×2 (09:04→21:31)
[2016-11-30] MEDS: FAMOTIDINE 20 MG TABLET PO SCH (09:04)
[2016-11-30] MEDS: LACTULOSE SYRUP 20 GM/30 ML UDCUP PO SCH (09:04)
[2016-11-30 11:26] LABS: ANION GAP 11 (5-19); BLOOD UREA NITROGEN 35 mg/dL (7-20); CALCIUM 8.8 mg/dL (8.4-10.2); CARBON DIOXIDE 21 mmol/L (22-30); CHLORIDE 108 mmol/L (98-107); CREATININE RESULT 1.94 mg/dL (0.52-1.25); GLUCOSE 183 mg/dL (75-110); POTASSIUM 4.5 mmol/L (3.6-5.0); SODIUM 139.6 mmol/L (137-145)
[2016-11-30] MEDS: TAMSULOSIN HCL 0.4 MG CAP.SR.24H PO SCH (17:26)
[2016-11-30] MEDS: ACETAMINOPHEN 325 MG TABLET PO PRN (21:30)
[2016-12-01 06:43] LABS: ANION GAP 8 (5-19); BLOOD UREA NITROGEN 36 mg/dL (7-20); CALCIUM 9.1 mg/dL (8.4-10.2); CARBON DIOXIDE 24 mmol/L (22-30); CHLORIDE 110 mmol/L (98-107); CREATININE RESULT 2.13 mg/dL (0.52-1.25); GLUCOSE 150 mg/dL (75-110); SODIUM 142.4 mmol/L (137-145)
--- NOTE | 2016-12-01 07:47 | PDOC PROGRESS REPORT ---
Subjective Progress Note for:: 12/01/16 Subjective:: occasional pain L ribs Physical Exam Vital Signs: Temp Pulse Resp BP Pulse Ox 98.0 F 91 22 H 157/96 H 98 12/01/16 04:00 12/01/16 04:00 12/01/16 04:00 12/01/16 04:00 12/01/16 04:00 Intake & Output 11/29/16 11/30/16 12/01/16 07:59 07:59 07:59 Intake Total 3470 2242 2200 Output Total 3850 3600 5500 Balance -380 -1358 -3300 Weight 171 lb 15.369 oz General appearance: PRESENT: no acute distress Respiratory exam: PRESENT: clear to auscultation esme Cardiovascular exam: PRESENT: irregular rhythm. ABSENT: diastolic murmur, systolic murmur GI/Abdominal exam: ABSENT: mass, organolmegaly, tenderness Extremities exam: ABSENT: pedal edema Psychiatric exam: PRESENT: appropriate affect Results Laboratory Results: 12/01/16 06:25 11/30/16 12/01/16 10:55 06:25 Sodium 139.6 142.4 Potassium 4.5 4.0 Chloride 108 H 110 H Carbon Dioxide 21 L 24 Anion Gap 11 8 BUN 35 H 36 H Creatinine 1.94 H 2.13 H Est GFR ( Amer) 41 L 37 L Est GFR (Non-Af Amer) 34 L 31 L Glucose 183 H 150 H Calcium 8.8 9.1 Impressions: Renal Ultrasound 11/25/16 00:00 IMPRESSION: Right renal cyst. No hydronephrosis. Elbow X-Ray 11/25/16 12:15 IMPRESSION: Small calcifications adjacent to the olecranon probably tendinous although small avulsion fractures cannot be excluded. Ribs w/Chest X-Ray 11/25/16 12:15 IMPRESSION: 1. Acute fractures involving the left 4th 5th and 10th ribs. 2. Chronic mixed lucent sclerotic lesions involving the left 7th and 10th ribs which by history are related to multiple myeloma. 3. Chronic parenchymal changes are seen in the lungs which appears slightly more prominent raising the possibility of active pneumonia or edema. Assessment & Plan - Diagnosis (1) Malnutrition due to starvation Is this a current diagnosis for this admission?: YesPlan: eating more with menu (2) Acute renal insufficiency Is this a current diagnosis for this admission?: YesPlan: slowly improving (3) Ribs, multiple fractures Qualifiers: Encounter type: initial encounter Fracture type: closed Laterality : left Qualified Code(s): S22.42XA - Multiple fractures of ribs, left side, initial encounter for closed fracture Is this a current diagnosis for this admission?: Yes (4) Alzheimer's dementia with behavioral disturbance Qualifiers: Alzheimer's disease onset: late-onset Qualified Code(s): G30.1 - Alzheimer's disease with late onset; F02.81 - Dementia in other diseases classified elsewhere with behavioral disturbance Is this a current diagnosis for this admission?: YesPlan: SNF pending (5) Syncope Qualifiers: Syncope type: unspecified Qualified Code(s): R55 - Syncope and collapse Is this a current diagnosis for this admission?: Yes (6) Type 2 diabetes mellitus with diabetic polyneuropathy Qualifiers: Diabetes mellitus snf insulin use: with watermelon harvesting 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 use Qualified Code(s): E11.42 - Type 2 diabetes mellitus with diabetic polyneuropathy Is this a current diagnosis for this admission?: Yes (7) Multiple myeloma Qualifiers: Multiple myeloma remission status: not in remission Qualified Code(s ): C90.00 - Multiple myeloma not having achieved remission Is this a current diagnosis for this admission?: Yes (8) BPH with urinary obstruction Is this a current diagnosis for this admission?: Yes - Inpatient Certification Medical Necessity: Failure to Improve With Outpatient Therapy, Significant Comorbidiites Make Outpatient Treatment Too Risky, Need Close Monitoring Due to Risk of Patient Decompensation
[2016-12-01] MEDS: DILTIAZEM HCL 180 MG CAPSULE.CR PO SCH (10:08)
[2016-12-01] MEDS: AMIODARONE HCL 200 MG TABLET PO SCH (10:08)
[2016-12-01] MEDS: PIOGLITAZONE HCL 15 MG TABLET PO SCH (10:08)
[2016-12-01] MEDS: FINASTERIDE 5 MG TABLET PO SCH (10:08)
[2016-12-01] MEDS: LACTULOSE SYRUP 20 GM/30 ML UDCUP PO SCH (10:08)
[2016-12-01] MEDS: FAMOTIDINE 20 MG TABLET PO SCH (10:08)
[2016-12-01] MEDS: FLUTICASONE/SALMETEROL DISKUS 100-50 MCG/DOSE IH SCH ×2 (10:09→21:21)
[2016-12-01] MEDS: TAMSULOSIN HCL 0.4 MG CAP.SR.24H PO SCH (18:35)
[2016-12-01] MEDS: ACETAMINOPHEN 325 MG TABLET PO PRN (23:13)
[2016-12-02] MEDS ORDERED: PIOGLITAZONE HCL 15 MG TABLET PO SCH (05:25)
[2016-12-02 06:08] LABS: ANION GAP 8 (5-19); BLOOD UREA NITROGEN 39 mg/dL (7-20); CALCIUM 8.6 mg/dL (8.4-10.2); CARBON DIOXIDE 22 mmol/L (22-30); CHLORIDE 110 mmol/L (98-107); CREATININE RESULT 1.98 mg/dL (0.52-1.25); GLUCOSE 166 mg/dL (75-110); POTASSIUM 4.1 mmol/L (3.6-5.0); SODIUM 140.4 mmol/L (137-145)
--- NOTE | 2016-12-02 08:12 | PDOC PROGRESS REPORT ---
Subjective Progress Note for:: 12/02/16 Subjective:: no symptoms. Plans to move to assisted living near daughter in [place] after rehab. Physical Exam Vital Signs: Temp Pulse Resp BP Pulse Ox 97.7 F 97 22 H 149/92 H 96 12/02/16 03:14 12/02/16 03:14 12/02/16 03:14 12/02/16 03:14 12/02/16 03:14 Intake & Output 12/01/16 12/02/16 12/03/16 07:59 07:59 07:59 Intake Total 2200 1360 Output Total 5500 2800 Balance -3300 -1440 Weight 166 lb 0.129 oz General appearance: PRESENT: no acute distress Respiratory exam: PRESENT: clear to auscultation esme Cardiovascular exam: PRESENT: irregular rhythm. ABSENT: diastolic murmur, systolic murmur GI/Abdominal exam: ABSENT: mass, organolmegaly, tenderness Extremities exam: ABSENT: pedal edema Neurological exam: PRESENT: oriented to situation Psychiatric exam: PRESENT: appropriate affect Results Laboratory Results: 12/02/16 05:25 12/02/16 05:25 Sodium 140.4 Potassium 4.1 Chloride 110 H Carbon Dioxide 22 Anion Gap 8 BUN 39 H Creatinine 1.98 H Est GFR ( Amer) 41 L Est GFR (Non-Af Amer) 33 L Glucose 166 H Calcium 8.6 Impressions: Renal Ultrasound 11/25/16 00:00 IMPRESSION: Right renal cyst. No hydronephrosis. Elbow X-Ray 11/25/16 12:15 IMPRESSION: Small calcifications adjacent to the olecranon probably tendinous although small avulsion fractures cannot be excluded. Ribs w/Chest X-Ray 11/25/16 12:15 IMPRESSION: 1. Acute fractures involving the left 4th 5th and 10th ribs. 2. Chronic mixed lucent sclerotic lesions involving the left 7th and 10th ribs which by history are related to multiple myeloma. 3. Chronic parenchymal changes are seen in the lungs which appears slightly more prominent raising the possibility of active pneumonia or edema. Assessment & Plan - Diagnosis (1) Malnutrition due to starvation Is this a current diagnosis for this admission?: Yes (2) Acute renal insufficiency Is this a current diagnosis for this admission?: YesPlan: slowly improving with ballard (3) Ribs, multiple fractures Qualifiers: Encounter type: initial encounter Fracture type: closed Laterality : left Qualified Code(s): S22.42XA - Multiple fractures of ribs, left side, initial encounter for closed fracture Is this a current diagnosis for this admission?: Yes (4) Alzheimer's dementia with behavioral disturbance Qualifiers: Alzheimer's disease onset: late-onset Qualified Code(s): G30.1 - Alzheimer's disease with late onset; F02.81 - Dementia in other diseases classified elsewhere with behavioral disturbance Is this a current diagnosis for this admission?: Yes (5) Syncope Qualifiers: Syncope type: unspecified Qualified Code(s): R55 - Syncope and collapse Is this a current diagnosis for this admission?: Yes (6) Type 2 diabetes mellitus with diabetic polyneuropathy Qualifiers: Diabetes mellitus termite 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 Increase pioglitazone to 30mg (7) Multiple myeloma Qualifiers: Multiple myeloma remission status: not in remission Qualified Code(s ): C90.00 - Multiple myeloma not having achieved remission Is this a current diagnosis for this admission?: Yes (8) BPH with urinary obstruction Is this a current diagnosis for this admission?: Yes (9) Ataxia Is this a current diagnosis for this admission?: YesPlan: ready for rehab which is pending
[2016-12-02] MEDS: LACTULOSE SYRUP 20 GM/30 ML UDCUP PO SCH (11:15)
[2016-12-02] MEDS: DILTIAZEM HCL 180 MG CAPSULE.CR PO SCH (11:16)
[2016-12-02] MEDS: AMIODARONE HCL 200 MG TABLET PO SCH (11:17)
[2016-12-02] MEDS: PIOGLITAZONE HCL 30 MG TABLET PO SCH (11:17)
[2016-12-02] MEDS: FINASTERIDE 5 MG TABLET PO SCH (11:17)
[2016-12-02] MEDS: FAMOTIDINE 20 MG TABLET PO SCH (11:17)
[2016-12-02] MEDS: FLUTICASONE/SALMETEROL DISKUS 100-50 MCG/DOSE IH SCH ×2 (11:17→22:21)
[2016-12-02] MEDS: TAMSULOSIN HCL 0.4 MG CAP.SR.24H PO SCH (17:47)
[2016-12-02] MEDS: ACETAMINOPHEN 325 MG TABLET PO PRN (22:21)
[2016-12-03] MEDS ORDERED: GLUCAGON,HUMAN RECOMB 1 MG INJ IM PRN (05:44)
[2016-12-03] MEDS ORDERED: DEXTROSE 40% GEL 15 GM TUBE PO PRN ×2 (05:44)
[2016-12-03] MEDS ORDERED: DEXTROSE 50%-WATER 25 GM/50 ML DISP.SYRIN IV PRN ×2 (05:44)
[2016-12-03 06:55] LABS: ANION GAP 7 (5-19); BLOOD UREA NITROGEN 38 mg/dL (7-20); CALCIUM 7.8 mg/dL (8.4-10.2); CARBON DIOXIDE 23 mmol/L (22-30); CHLORIDE 112 mmol/L (98-107); CREATININE RESULT 1.75 mg/dL (0.52-1.25); GLUCOSE 153 mg/dL (75-110); POTASSIUM 3.9 mmol/L (3.6-5.0); SODIUM 141.6 mmol/L (137-145)
--- NOTE | 2016-12-03 08:19 | PDOC PROGRESS REPORT ---
Subjective Subjective:: looking forward to assisted living near daughter in [place] Physical Exam Vital Signs: Temp Pulse Resp BP Pulse Ox 97.8 F 88 16 148/99 H 96 12/03/16 03:00 12/03/16 03:00 12/03/16 03:00 12/03/16 03:00 12/03/16 03:00 Intake & Output 12/02/16 12/03/16 12/04/16 07:59 07:59 07:59 Intake Total 1360 2000 Output Total 2800 1950 Balance -1440 51 Weight 166 lb 0.129 oz 164 lb 3.91 oz General appearance: PRESENT: no acute distress Respiratory exam: PRESENT: clear to auscultation esme Cardiovascular exam: PRESENT: irregular rhythm. ABSENT: diastolic murmur, systolic murmur GI/Abdominal exam: ABSENT: mass, organolmegaly, tenderness Neurological exam: PRESENT: oriented to situation Psychiatric exam: PRESENT: appropriate affect Results Laboratory Results: 12/03/16 06:05 12/03/16 06:05 Sodium 141.6 Potassium 3.9 Chloride 112 H Carbon Dioxide 23 Anion Gap 7 BUN 38 H Creatinine 1.75 H Est GFR ( Amer) 47 L Est GFR (Non-Af Amer) 39 L Glucose 153 H Calcium 7.8 L Impressions: Renal Ultrasound 11/25/16 00:00 IMPRESSION: Right renal cyst. No hydronephrosis. Elbow X-Ray 11/25/16 12:15 IMPRESSION: Small calcifications adjacent to the olecranon probably tendinous although small avulsion fractures cannot be excluded. Ribs w/Chest X-Ray 11/25/16 12:15 IMPRESSION: 1. Acute fractures involving the left 4th 5th and 10th ribs. 2. Chronic mixed lucent sclerotic lesions involving the left 7th and 10th ribs which by history are related to multiple myeloma. 3. Chronic parenchymal changes are seen in the lungs which appears slightly more prominent raising the possibility of active pneumonia or edema. Assessment & Plan - Diagnosis (1) Malnutrition due to starvation Is this a current diagnosis for this admission?: Yes (2) Acute renal insufficiency Is this a current diagnosis for this admission?: YesPlan: cr down to 2 with ballard (3) Ribs, multiple fractures Qualifiers: Encounter type: initial encounter Fracture type: closed Laterality : left Qualified Code(s): S22.42XA - Multiple fractures of ribs, left side, initial encounter for closed fracture Is this a current diagnosis for this admission?: Yes (4) Alzheimer's dementia with behavioral disturbance Qualifiers: Alzheimer's disease onset: late-onset Qualified Code(s): G30.1 - Alzheimer's disease with late onset; F02.81 - Dementia in other diseases classified elsewhere with behavioral disturbance Is this a current diagnosis for this admission?: Yes (5) Syncope Qualifiers: Syncope type: unspecified Qualified Code(s): R55 - Syncope and collapse Is this a current diagnosis for this admission?: Yes (6) Type 2 diabetes mellitus with diabetic polyneuropathy Qualifiers: Diabetes mellitus jail insulin use: with intermodal dispatcher use Qualified Code(s): E11.42 - Type 2 diabetes mellitus with diabetic polyneuropathy Is this a current diagnosis for this admission?: YesPlan: [id number] last pm after candy bar. Resumed lantus at only 10u (7) Multiple myeloma Qualifiers: Multiple myeloma remission status: not in remission Qualified Code(s ): C90.00 - Multiple myeloma not having achieved remission Is this a current diagnosis for this admission?: Yes (8) BPH with urinary obstruction Is this a current diagnosis for this admission?: Yes (9) Ataxia Is this a current diagnosis for this admission?: Yes - Inpatient Certification Medical Necessity: Failure to Improve With Outpatient Therapy, Significant Comorbidiites Make Outpatient Treatment Too Risky
[2016-12-03] MEDS: FAMOTIDINE 20 MG TABLET PO SCH (09:28)
[2016-12-03] MEDS: LACTULOSE SYRUP 20 GM/30 ML UDCUP PO SCH (09:28)
[2016-12-03] MEDS: AMIODARONE HCL 200 MG TABLET PO SCH (09:28)
[2016-12-03] MEDS: DILTIAZEM HCL 180 MG CAPSULE.CR PO SCH (09:28)
[2016-12-03] MEDS: FINASTERIDE 5 MG TABLET PO SCH (09:28)
[2016-12-03] MEDS: PIOGLITAZONE HCL 30 MG TABLET PO SCH (09:29)
[2016-12-03] MEDS: FLUTICASONE/SALMETEROL DISKUS 100-50 MCG/DOSE IH SCH ×2 (09:29→21:37)
[2016-12-03] MEDS ORDERED: INSULIN GLARGINE,HUM.REC.ANLOG 300 UNIT/3 ML INSULN.PEN SUBCUT SCH (10:00)
[2016-12-03] MEDS: TAMSULOSIN HCL 0.4 MG CAP.SR.24H PO SCH (18:07)
[2016-12-03] MEDS: ACETAMINOPHEN 325 MG TABLET PO PRN (22:12)
[2016-12-04] MEDS ORDERED: INSULIN GLARGINE,HUM.REC.ANLOG 300 UNIT/3 ML INSULN.PEN SUBCUT SCH (05:25)
[2016-12-04 07:02] LABS: ANION GAP 9 (5-19); BLOOD UREA NITROGEN 43 mg/dL (7-20); CALCIUM 8.8 mg/dL (8.4-10.2); CARBON DIOXIDE 24 mmol/L (22-30); CHLORIDE 110 mmol/L (98-107); CREATININE RESULT 1.84 mg/dL (0.52-1.25); GLUCOSE 132 mg/dL (75-110); POTASSIUM 4.3 mmol/L (3.6-5.0); SODIUM 142.6 mmol/L (137-145)
--- NOTE | 2016-12-04 07:18 | PDOC DISCHARGE SUMMARY ---
General - Admit/Disc Date/PCP Admission Date/Primary Care Provider: 11/25/16 14:34 JUAN R KHAN MD Discharge Date: 12/04/16 - Discharge Diagnosis (1) Acute renal insufficiency Is this a current diagnosis for this admission?: Yes (2) Syncope Is this a current diagnosis for this admission?: Yes (3) Ataxia Is this a current diagnosis for this admission?: Yes (4) Malnutrition due to starvation Is this a current diagnosis for this admission?: Yes (5) Ribs, multiple fractures Is this a current diagnosis for this admission?: Yes (6) Alzheimer's dementia with behavioral disturbance Is this a current diagnosis for this admission?: Yes (7) Type 2 diabetes mellitus with diabetic polyneuropathy Is this a current diagnosis for this admission?: Yes (8) Multiple myeloma Is this a current diagnosis for this admission?: Yes (9) BPH with urinary obstruction Is this a current diagnosis for this admission?: Yes - Additional Information Resuscitation Status: Full Code Discharge Diet: Diabetic Discharge Activity: Supervised Activity Home Medications: Amiodarone HCl [Cordarone 200 mg Tablet] 200 mg PO DAILY 11/25/16 Esomeprazole Mag Trihydrate [Nexium] 40 mg PO DAILY 11/25/16 Fenofibrate 160 mg PO DAILY 11/25/16 Finasteride [Proscar 5 mg Tablet] 5 mg PO DAILY 11/25/16 Fluticasone/Salmeterol [Advair 100-50 Diskus 14 Dose/Diskus] 1 puff IH BID 11/25 Acetaminophen [Tylenol 325 mg Tablet] 325 mg PO Q4HP PRN #0 tablet 12/02/16 Diltiazem HCl [Cardizem Cd 180 mg Capsule] 360 mg PO DAILY #0 capsule.cr Lactulose [Cephulac Syrup 20 gm/30 ml Udcup] 20 gm PO DAILY #0 udc 12/02/16 Insulin Glargine,Hum.rec.anlog [Lantus Insulin 100 Unit/mL] 15 unit SUBCUT DAILY #0 insuln.pen 12/04/16 History of Present Illness Patient complains of: passed out in parking lot History of Present Illness: LESTER DELONG is a 71 year old male with deteriorating performance and multiple admissions. He left SNF after september admission. Children visited last week but left without a plan. Sugar was 30 today after skipping breakfast. New omaira in ER. Retention twice this year. PVR by bladder scan now 355ml. Off revlumid for neuropathy and falls since september admission. Light chain marker worse. Hospital Course Hospital Course: [facility] supplier quality engineer suggested leaving ballard in until urodynometry can be performed in office by next locums. Creatinine fell from 3.4 to 1.8 with hydration & ballard. I stopped insulins for low sugars but had to resume lantus at half dose for pioglitazone failure. Broken ribs responded to Tylenol. Even with amiodarone, I had to increase diltiazem to 360. Appetite remained poor. He finally admits he would be better off near daughter in [place] in assisted living which she is arranging for after rehab. Dr Arriaga saw him in consultation and spoke about other chemos for myeloma. Physical Exam Vital Signs: Temp Pulse Resp BP Pulse Ox 97.5 F 90 18 120/87 H 96 12/04/16 04:00 12/04/16 04:00 12/04/16 04:00 12/04/16 04:00 12/04/16 04:00 Intake & Output 12/02/16 12/03/16 12/04/16 07:59 07:59 07:59 Intake Total 1360 2001 1270 Output Total 2800 1950 1150 Balance -1440 51 120 Weight 166 lb 0.129 oz 164 lb 3.91 oz General appearance: PRESENT: no acute distress Respiratory exam: PRESENT: clear to auscultation esme Cardiovascular exam: PRESENT: irregular rhythm. ABSENT: diastolic murmur, systolic murmur GI/Abdominal exam: ABSENT: mass, organolmegaly, tenderness Extremities exam: ABSENT: pedal edema Neurological exam: PRESENT: oriented to situation Psychiatric exam: PRESENT: appropriate affect Results Laboratory Results: 12/03/16 06:05 Labs- Last Values WBC 7.6 10^3/uL (4.0-10.5) 11/25/16 12:30 RBC 3.80 10^6/uL (4.35-5.55) L 11/25/16 12:30 Hgb 12.2 g/dL (13.5-17.0) L 11/25/16 12:30 Hct 36.5 % (37.9-51.0) L 11/25/16 12:30 MCV 96 fl (80-97) D 11/25/16 12:30 MCH 32.1 pg (27.0-33.4) 11/25/16 12:30 MCHC 33.5 g/dL (32.0-36.0) 11/25/16 12:30 RDW 20.4 % (11.5-14.0) H 11/25/16 12:30 Plt Count 281 10^3/uL (150-450) 11/25/16 12:30 Total Counted 100 11/25/16 12:30 Seg Neutrophils % Not Reportable 11/25/16 12:30 Seg Neuts % (Manual) 94 % (42-78) H 11/25/16 12:30 Band Neutrophils % 1 % (3-5) L 11/25/16 12:30 Lymphocytes % Not Reportable 11/25/16 12:30 Lymphocytes % (Manual) 2 % (13-45) L 11/25/16 12:30 Monocytes % Not Reportable 11/25/16 12:30 Monocytes % (Manual) 1 % (3-13) L 11/25/16 12:30 Eosinophils % Not Reportable 11/25/16 12:30 Eosinophils % (Manual) 1 % (0-6) 11/25/16 12:30 Basophils % Not Reportable 11/25/16 12:30 Basophils % (Manual) 1 % (0-2) 11/25/16 12:30 Absolute Neutrophils Not Reportable 11/25/16 12:30 Abs Neuts (Manual) 7.2 10^3/uL (1.7-8.2) 11/25/16 12:30 Absolute Lymphocytes Not Reportable 11/25/16 12:30 Abs Lymphs (Manual) 0.2 10^3/uL (0.5-4.7) L 11/25/16 12:30 Absolute Monocytes Not Reportable 11/25/16 12:30 Abs Monocytes (Manual) 0.1 10^3/uL (0.1-1.4) 11/25/16 12:30 Absolute Eosinophils Not Reportable 11/25/16 12:30 Absolute Eos (Manual) 0.1 10^3/uL (0.0-0.6) 11/25/16 12:30 Absolute Basophils Not Reportable 11/25/16 12:30 Abs Basophils (Manual) 0.1 10^3/uL (0.0-0.2) 11/25/16 12:30 Toxic Granulation 1+ 11/25/16 12:30 Toxic Vacuolation PRESENT 11/25/16 12:30 Platelet Estimate Cancelled 11/25/16 12:00 Platelet Comment ADEQUATE 11/25/16 12:30 Hypochromasia 1+ 11/25/16 12:30 Poikilocytosis 3+ 11/25/16 12:30 Anisocytosis 2+ 11/25/16 12:30 Target Cells SLIGHT 11/25/16 12:30 Ovalocytes 1+ 11/25/16 12:30 Gaona-Biron Bodies PRESENT 11/25/16 12:30 Ally Cells 2+ 11/25/16 12:30 Acanthocytes (Spur) 1+ 11/25/16 12:30 Schistocytes 1+ 11/25/16 12:30 Sodium 141.6 mmol/L (137-145) 12/03/16 06:05 Potassium 3.9 mmol/L (3.6-5.0) 12/03/16 06:05 Chloride 112 mmol/L (98-107) H 12/03/16 06:05 Carbon Dioxide 23 mmol/L (22-30) 12/03/16 06:05 Anion Gap 7 (5-19) 12/03/16 06:05 BUN 38 mg/dL (7-20) H 12/03/16 06:05 Creatinine 1.75 mg/dL (0.52-1.25) H 12/03/16 06:05 Est GFR ( Amer) 47 (>60) L 12/03/16 06:05 Est GFR (Non-Af Amer) 39 (>60) L 12/03/16 06:05 Glucose 153 mg/dL (75-110) H 12/03/16 06:05 POC Glucose 187 mg/dL (70-110) H 12/03/16 21:37 Calcium 7.8 mg/dL (8.4-10.2) L 12/03/16 06:05 Total Bilirubin 0.7 mg/dL (0.2-1.3) 11/25/16 12:00 Direct Bilirubin 0.5 mg/dL (0.0-0.4) H 11/25/16 12:00 Indirect Bilirubin Not Reportable 11/25/16 12:00 Neonat Total Bilirubin Not Reportable 11/25/16 12:00 AST 13 U/L (17-59) L 11/25/16 12:00 ALT 20 U/L (21-72) L 11/25/16 12:00 Alkaline Phosphatase 61 U/L (38-126) 11/25/16 12:00 Creatine Kinase < 20 U/L (55-170) L 11/25/16 12:00 CK-MB (CK-2) 2.20 ng/mL (<4.55) 11/25/16 12:00 Troponin I < 0.012 ng/mL 11/25/16 12:00 Total Protein 5.1 g/dL (6.3-8.2) L 11/25/16 12:00 Albumin 2.8 g/dL (3.5-5.0) L 11/25/16 12:00 Urine Color YELLOW 11/25/16 17:08 Urine Appearance SLIGHTLY-CLOUDY 11/25/16 17:08 Urine pH 6.0 (5.0-9.0) 11/25/16 17:08 Ur Specific [place] 1.009 11/25/16 17:08 Urine Protein NEGATIVE mg/dL (NEGATIVE) 11/25/16 17:08 Urine Glucose (UA) NEGATIVE mg/dL (NEGATIVE) 11/25/16 17:08 Urine Ketones NEGATIVE mg/dL (NEGATIVE) 11/25/16 17:08 Urine Blood LARGE (NEGATIVE) H 11/25/16 17:08 Urine Nitrite NEGATIVE (NEGATIVE) 11/25/16 17:08 Urine Bilirubin NEGATIVE (NEGATIVE) 11/25/16 17:08 Urine Urobilinogen NEGATIVE mg/dL (<2.0) 11/25/16 17:08 Ur Leukocyte Esterase TRACE (NEGATIVE) H 11/25/16 17:08 Urine WBC (Auto) 10 /HPF 11/25/16 17:08 Urine RBC (Auto) 150 /HPF 11/25/16 17:08 Squamous Epi Cells Auto <1 /HPF 11/25/16 17:08 Ur 24 Hour Volume 2600 mL 11/25/16 21:30 Ur Total Protein 24 Hr 803 mg/day (42-225) H 11/25/16 21:30 Urine Total Protein 30.9 mg/dL (<12) H 11/25/16 21:30 Urine Ascorbic Acid NEGATIVE (NEGATIVE) 11/25/16 17:08 Slides for Path Review Cancelled 11/25/16 12:00 Impressions: Renal Ultrasound 11/25/16 00:00 IMPRESSION: Right renal cyst. No hydronephrosis. Elbow X-Ray 11/25/16 12:15 IMPRESSION: Small calcifications adjacent to the olecranon probably tendinous although small avulsion fractures cannot be excluded. Ribs w/Chest X-Ray 11/25/16 12:15 IMPRESSION: 1. Acute fractures involving the left 4th 5th and 10th ribs. 2. Chronic mixed lucent sclerotic lesions involving the left 7th and 10th ribs which by history are related to multiple myeloma. 3. Chronic parenchymal changes are seen in the lungs which appears slightly more prominent raising the possibility of active pneumonia or edema. Plan Discharge Plan: to SNF rehab for 1 month, then to assisted living in [place]. See me at SNF, and see Dr Arriaga in 1w. See [facility] in 1w too. Flush port in 4 weeks. (We flushed it today.)
[2016-12-04] MEDS: FINASTERIDE 5 MG TABLET PO SCH (09:21)
[2016-12-04] MEDS: FAMOTIDINE 20 MG TABLET PO SCH (09:21)
[2016-12-04] MEDS: AMIODARONE HCL 200 MG TABLET PO SCH (09:21)
[2016-12-04] MEDS: DILTIAZEM HCL 180 MG CAPSULE.CR PO SCH (09:22)
[2016-12-04] MEDS: FLUTICASONE/SALMETEROL DISKUS 100-50 MCG/DOSE IH SCH (09:23)
[2016-12-04] MEDS: LACTULOSE SYRUP 20 GM/30 ML UDCUP PO SCH (09:39)
[2016-12-04 11:50] VITALS: BP 114/71
== END 2016-12-04 16:43 | DRG 726 ==
LOC: ER 11:50 → UNDOADMIN 13:46 → EH 13:46 → 5 15:48
PROVIDERS: ADMIT Family Medicine; ATTEND Family Medicine
PROC: 3E0234Z Introduction of Serum, Toxoid and Vaccine into Muscle, Percutaneous Approach (ICD-10-PCS; principal; 2016-11-25)
DX: N40.1 Benign prostatic hyperplasia with lower urinary tract symptoms (principal); C90.00 Multiple myeloma not having achieved remission; E46 Unspecified protein-calorie malnutrition; S22.42XA Multiple fractures of ribs, left side, initial encounter for closed fracture; F02.81 Dementia in other diseases classified elsewhere, unspecified severity, with behavioral disturbance; N13.8 Other obstructive and reflux uropathy; N28.9 Disorder of kidney and ureter, unspecified; R55 Syncope and collapse; R27.0 Ataxia, unspecified; Z68.23 Body mass index [BMI] 23.0-23.9, adult; T73.0XXA Starvation, initial encounter; X58.XXXA Exposure to other specified factors, initial encounter; G30.9 Alzheimer's disease, unspecified; E11.42 Type 2 diabetes mellitus with diabetic polyneuropathy; R33.8 Other retention of urine; N28.1 Cyst of kidney, acquired; I48.91 Unspecified atrial fibrillation; I10 Essential (primary) hypertension; E78.5 Hyperlipidemia, unspecified; M19.042 Primary osteoarthritis, left hand; M19.041 Primary osteoarthritis, right hand; W01.0XXA Fall on same level from slipping, tripping and stumbling without subsequent striking against object, initial encounter; Y92.481 Parking lot as the place of occurrence of the external cause; K21.9 Gastro-esophageal reflux disease without esophagitis; D57.1 Sickle-cell disease without crisis; Z91.81 History of falling; Z60.2 Problems related to living alone; Z23 Encounter for immunization; Z86.718 Personal history of other venous thrombosis and embolism; Z79.4 Long term (current) use of insulin; Z79.899 Other long term (current) drug therapy; Z86.14 Personal history of Methicillin resistant Staphylococcus aureus infection; Z82.49 Family history of ischemic heart disease and other diseases of the circulatory system; Z80.9 Family history of malignant neoplasm, unspecified; Z01.89 Encounter for other specified special examinations
CPT/HCPCS: 36415; 76770; 80048; 80053; 81001; 82550; 82553; 82962; 83883; 84156; 84165; 84484; 85025; 87086; 90715; 93005; 93010; 99285; G8978-GP; G8979-GP; J1642; J1815; J3490; J7030